=== PATIENT | female | born 1960 | race African-American/Black ===

== ENCOUNTER 2018-10-03 08:10 | Emergency (ER) | payer MEDICAID, OTHER ==
[~2018-10-03] VITALS: Ht 167.6 cm; Wt 73.9 kg
[~2018-10-03 08:10] MED LIST: BUSPIRONE HCL15 MG ORAL; GEODON40 MG ORAL; OMEPRAZOLE20 M2 ORAL
[2018-10-03 08:14] VITALS: BP 131/81
--- NOTE | 2018-10-03 08:14 | NUR ---
ED Nurse Note: Patient VILMA RA#[id number] from home d/t left hip pain x 1 day. Pt rates pain at 10/10. Pt reports Hx of Breast Cancer since 2017 and being a Hospice patient. Pt is A&O x4, V/S stable with no s/s of acute distress noted at this time.
--- NOTE | 2018-10-03 08:42 | Emergency Room Report ---
History of Present Illness General Chief Complaint: Pain Source: Patient, Medical Record Present Illness HPI Patient is a 58-year-old female brought in by EMS after increased left-sided hip pain. Patient reports having recent increase in pain to her left hip. She states she has been taking multiple medications for pain she had reported prior history of breast cancer. Patient is currently in a hospice. Patient reports that her hip had began hurting this morning. She denies prior episodes of pain to that area. She reportedly had been able to ambulate with a walker. Allergies: Coded Allergies: No Known Allergies (Unverified , 12/02/15) Patient History Past Medical History: see triage record Last Menstrual Period: None Now: No Reviewed Nursing Documentation: PMH: Agreed; PSxH: Agreed Nursing Documentation-PMH Hx Cardiac Problems: No - Breast cancer 2017 Hx Asthma: Yes Hx Cancer: Yes - BREAST CA History Of Psychiatric Problem: Yes - Anxiety Review of Systems All Other Systems: negative except mentioned in HPI Physical Exam Vital Signs Date Time Temp Pulse Resp B/P (MAP) Pulse Ox O2 Delivery O2 Flow Rate FiO2 10/03/18 08:03 98.2 86 18 97 10/03/18 08:14 131/81 Room Air Sp02 EP Interpretation: reviewed, normal General Appearance: normal inspection, well appearing, no apparent distress, alert, GCS 15, other - somnolent, awoke from sleeping Head: atraumatic ENT: normal ENT inspection, hearing grossly normal, normal voice Neck: normal inspection, full range of motion, supple, no bony tend Respiratory: normal inspection, lungs clear, normal breath sounds, no respiratory distress, no retraction, no wheezing Cardiovascular #1: regular rate, rhythm, no edema Gastrointestinal: normal inspection, normal bowel sounds, non tender, soft, no guarding, no hernia Genitourinary: no CVA tenderness Musculoskeletal: normal inspection, back normal, normal range of motion Neurologic: normal inspection, alert, oriented x3, responsive, vegetable packer III-XII nml as tested, speech normal Psychiatric: normal inspection, judgement/insight normal, mood/affect normal Skin: normal inspection, normal color, no rash Medical Decision Making Diagnostic Impression: Primary Impression: Hip pain Additional Impression: Metastatic cancer ER Course She presented for hip pain. Differential diagnosis include was not limited to metastases, fracture, dislocation, contusion among others. Because of complexity of patient's case laboratory testing and imaging studies were ordered.Patient was noted to be somewhat somnolent and appears to be possibly intoxicated. She was noted to be sleeping prior to exam but was easily arousable. Patient does not appear to be in any acute distress.CT of the left hip showed multiple lesions to the left iliac bone. Patient was given pain medications. She was noted to be in hospice.Patient was noted to have patient' s hospice was contacted and patient was sent back to her facility. Patient was noted to have metastatic cancer and has terminal illness. Last Vital Signs Date Time Temp Pulse Resp B/P (MAP) Pulse Ox O2 Delivery O2 Flow Rate FiO2 10/03/18 08:14 98.3 82 15 131/81 98 Room Air Status: improved Disposition: HOME, SELF-CARE Condition: Stable Jono Topete MD October 03, 2018 08:42
[2018-10-03] MEDS ORDERED: Morphine Sulfate 4mg/ml Inj (IV USE ONLY) IVP ONE (09:15)
--- NOTE | 2018-10-03 10:13 | NUR ---
ED Nurse Note: Pt. is sleeping with no s/s of acute distress noted at this time
[2018-10-03 11:49] VITALS: BP 126/68
[2018-10-03 12:42] VITALS: BP 126/68
--- NOTE | 2018-10-03 23:54 | Diagnostic Imaging Report ---
EXAM: CT Left Lower Extremity Without Intravenous Contrast, Hip. CLINICAL HISTORY: PAIN TECHNIQUE: Axial computed tomography images of the left hip without intravenous contrast. CTDI is 15.8 mGy and DLP is 435 mGy-cm. One or more of the following dose reduction techniques were used: automated exposure control, adjustment of the mA and/or kV according to patient size, use of iterative reconstruction technique. COMPARISON: No relevant prior studies available. FINDINGS: Bones: Multiple osteolytic lesions are seen throughout the pelvic bones, with partial cortical destruction of the left iliac bone. No evidence of pathologic fracture. Scattered osteoblastic lesions are seen as well, predominantly within the lower lumbar spine. Joints: No dislocation. Hip joints are symmetric. Soft tissues: Unremarkable. IMPRESSION: Osteolytic and osteoblastic lesions throughout the lower lumbar spine and both pelvic bones, with partial cortical destruction of the left iliac bone. Please correlate for history of malignancy. No evidence of pathologic fracture. No dislocation.
== END 2018-10-03 13:16 | disposition home or self-care (01) ==
LOC: EDBD 08:10 → EMR 10:35
DX: M25.552 Pain in left hip (principal); Z85.3 Personal history of malignant neoplasm of breast; F41.9 Anxiety disorder, unspecified
CPT/HCPCS: 73700; 96374; 99284; J2270

== ENCOUNTER 2018-11-02 22:10 | Emergency (ER) | payer OTHER ==
[~2018-11-02] VITALS: Ht 162.6 cm; Wt 77.1 kg
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
--- NOTE | 2018-11-02 23:48 | NUR ---
ED Nurse Note: Pt cleared by health care Provider for discharge. DC instructions/prescription was given and explained to pt and verbalized understanding of teachings. All medical deviecs such as ID band removed. Pt is AAO x4, ambulatory and left with all personal belongings.
== END 2018-11-02 23:49 | disposition home or self-care (01) ==
LOC: EDBD 22:10 → EMR 22:42
DX: M25.552 Pain in left hip (principal); F14.10 Cocaine abuse, uncomplicated; C79.81 Secondary malignant neoplasm of breast; Z90.13 Acquired absence of bilateral breasts and nipples
CPT/HCPCS: 96372; 99283; J1170

== ENCOUNTER 2018-11-09 01:28 | Emergency (ER) | payer OTHER ==
[~2018-11-09] VITALS: Ht 162.6 cm; Wt 77.1 kg
[2018-11-09] MEDS ORDERED: NKM (01:30)
[2018-11-09 01:35] VITALS: BP 153/68
--- NOTE | 2018-11-09 01:35 | NUR ---
ER Nurse Note: Pt VILMA from home c/o left hip pain, 8/10 pain. Pt stated she has hx of breast cancer and the pain is due to the cancer. Per EMS, pt was ambulatroy on scene but at bedside, pt was not able to get out of gurney. Pt stated "don't treat me any different because I am black". RN and staff explained to pt that pt care is not based on race, synagogue, sex, etc. Pt a&ox4, VSS, no signs of acute distress. All safety measrues met; will continue to montior.
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
[2018-11-09] MEDS ORDERED: HYDROcodone/Acetamin 5/325 tab ORAL ONE (02:00)
[2018-11-09 02:15] VITALS: BP 153/68
--- NOTE | 2018-11-09 02:15 | NUR ---
ER Nurse Note: All orders completed per ERMD orders. Pt seen, treated, medically cleared for discharge by ERMD. Discharge instructions and prescriptions given with repeat verbazliaion by pt. Instructed pt to follow up with primary care provider. Pt a&ox4, VSS, no signs of distress. ID band removed. Taxi [place]ohue for pt. Provided pt with water and food. Pt left with all belongings with wheelchair assistance via hospital provided taxi.
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
== END 2018-11-09 02:40 | disposition home or self-care (01) ==
LOC: EDBD 01:28 → EMR 01:41
DX: M25.552 Pain in left hip (principal); F14.10 Cocaine abuse, uncomplicated; C79.81 Secondary malignant neoplasm of breast; F17.200 Nicotine dependence, unspecified, uncomplicated
CPT/HCPCS: 99282

== ENCOUNTER 2019-01-01 02:43 | Emergency (ER) | payer OTHER ==
[~2019-01-01] VITALS: Ht 172.7 cm; Wt 79.4 kg
[~2019-01-01 02:43] MED LIST changes: +NKM
[2019-01-01 02:54] VITALS: BP 140/90
--- NOTE | 2019-01-01 02:55 | NUR ---
ER Nurse Note: Pt BIBA 826 from home c/o lower back pain. Pt stated 10/10 pain that started last night. Pt yelling, moaning, crying. Pt stated she takes norco for the pain but has not taken it. Pt a&ox4, VSS, stable. Will continue to montior.
[2019-01-01] MEDS ORDERED: HYDROmorphone 2mg tab ORAL ONE (03:30)
--- NOTE | 2019-01-01 03:32 | Emergency Room Report ---
History of Present Illness General Chief Complaint: Medication Refill Source: Patient Present Illness HPI HPI: This is a 58-year-old female with a history of metastatic breast cancer currently on palliative care presents for evaluation of left hip pain. The patient states she has had metastases to the iliac crest confirmed by previous CT scans. States that she ran out of her medication 2 days ago and is not able to get a refill from her hospice doctors until tomorrow. She requesting a dose of pain medication in the emergency department. She denies any new trauma or injury. Denies any other symptoms of acute illness such as fever, chills, chest pain, shortness of breath, nausea, vomiting. PMH: Metastatic cancer of the breast with metastases to iliac spine Allergies: Denies Social Hx: Denies smoking, alcohol use or drug use Allergies: Coded Allergies: No Known Allergies (Unverified , 12/02/15) Patient History Now: No Nursing Documentation-PMH Hx Asthma: Yes Hx Cancer: Yes - BREAST Review of Systems All Other Systems: negative except mentioned in HPI Physical Exam Vital Signs Date Time Temp Pulse Resp B/P (MAP) Pulse Ox O2 Delivery O2 Flow Rate FiO2 01/01/19 02:43 98.8 98 18 140/90 (107) 98 Room Air General: Awake and alert, moderate distress, crying on my entering the room HEENT: NC/AT. EOMI. Resp: Normal work of breathing. Abdomen: Abdomen is soft, nondistended. Nontender Skin: Intact. No abrasions, laceration or rash over the exposed skin MSK: Normal tone and bulk. Moving all extremities. No obvious deformity. Curled up in position. Able to extend the lower extremities without difficulty. Tenderness to palpation over the medial aspect of the left thigh and over the left hip. Neuro: Awake and alert. Mentating appropriately. Medical Decision Making Diagnostic Impression: Primary Impression: Hip pain Additional Impression: Metastatic breast cancer ER Course 58-year-old female history of metastatic breast cancer presents for evaluation of left hip pain. The patient has had several other emergency department visits with similar complaints. She is in hospice treatment for her metastatic breast cancer and states this is a typical presentation of her pain. As she denies any new injury or other complaints at this time I do not believe that lab work or imaging are indicated. We will attempt to treat the patient symptomatically and reevaluate after medication. Can expand work-up as needed. Reevaluation Time: 04:34 Last Vital Signs Date Time Temp Pulse Resp B/P (MAP) Pulse Ox O2 Delivery O2 Flow Rate FiO2 01/01/19 02:54 98.8 90 18 140/90 98 Room Air Status: improved Reevaluation Impression Patient notes significant improvement after receiving intramuscular Dilaudid. She is resting comfortably and even sleeping on my reevaluation. Her brother is now present states that she is appearing much improved compared to seeing her earlier and that he would like to take her home. They state that the pain medication will be at the pharmacy this morning. I discussed with them reasons to return to the emergency department; they understand and agree with this treatment plan will be discharged to follow-up with her outpatient therapist and paintings conservator. Please note that this report is being documented using [employer] technology. This can lead to erroneous entry secondary to incorrect interpretation by the dictating instrument. Disposition: HOME, SELF-CARE Condition: Improved Fortunato Ramirez MD Jan 01, 2019 03:32
[2019-01-01] MEDS ORDERED: HYDROmorphone 2 MG in NS 55 ML IVPB ONE (03:45)
[2019-01-01] MEDS ORDERED: Hydromorphone 0.5mg/0.5ml inj IM ONE (04:00)
[2019-01-01 04:40] VITALS: BP 140/90
--- NOTE | 2019-01-01 04:40 | NUR ---
ER Nurse Note: Pt seen, treated, medically cleared for discharge by ERMD. Discharge instuctions given with repeat verbalization by pt. Emphasized to follow up with primay care provider. All orders completed per ERMD orders. Pt a&ox4, VSS, no signs of distress. ID band removed. All questions answered per pt's questions. Pt left with all belongings, left with own transportation.
== END 2019-01-01 04:40 | disposition home or self-care (01) ==
LOC: EDBD 02:43 → EMR 03:06
DX: M25.552 Pain in left hip (principal); Z85.3 Personal history of malignant neoplasm of breast; Z85.89 Personal history of malignant neoplasm of other organs and systems
CPT/HCPCS: 96372; 96374; 99284; J1170

== ENCOUNTER 2019-01-17 08:21 | Emergency (ER) | payer OTHER ==
[~2019-01-17] VITALS: Ht 172.7 cm; Wt 72.6 kg
[2019-01-17 08:26] VITALS: BP 159/108
[2019-01-17] MEDS ORDERED: NORCO 10-325 T1 EACH ORAL (08:26)
[2019-01-17] MEDS ORDERED: MORPHINE IR15 MG ORAL (08:26)
[2019-01-17] MEDS ORDERED: Morphine Sulfate 2mg/ml Inj(IV/IM USE ONLY) IM ONE (08:45)
[2019-01-17] MEDS ORDERED: NORCO 5-325 TA1 EACH ORAL (08:55)
--- NOTE | 2019-01-17 08:56 | Emergency Room Report ---
History of Present Illness General Chief Complaint: Pain Source: Medical Record Present Illness HPI 58-year-old female history of metastatic cancer presents with left leg bone pain , started after she sat down, patient is able to ambulate she states she has a sharp ache inside her bones, no aggravating factors, alleviated with oral opioids, patient states she ran out she is getting hospice and palliative care, she denies any fevers chills chest pain shortness of breath, patient is requesting strong pain medications. Allergies: Coded Allergies: No Known Allergies (Unverified , 12/02/15) Patient History Past Medical History: see triage record Now: No Reviewed Nursing Documentation: PMH: Agreed; PSxH: Agreed Nursing Documentation-PMH Hx Asthma: Yes Hx Cancer: Yes - BREAST Review of Systems All Other Systems: negative except mentioned in HPI Physical Exam Vital Signs Date Time Temp Pulse Resp B/P (MAP) Pulse Ox O2 Delivery O2 Flow Rate FiO2 01/17/19 08:18 98.1 92 18 159/108 (125) 98 Room Air Sp02 EP Interpretation: reviewed, normal General Appearance: well appearing, no apparent distress, alert Head: normocephalic, atraumatic Eyes: bilateral eye PERRL, bilateral eye EOMI ENT: uvula midline, moist mucus membranes Neck: supple, thyroid normal, supple/symm/no masses Respiratory: lungs clear, no respiratory distress, no retraction, no accessory muscle use Cardiovascular #1: normal peripheral pulses, regular rate, rhythm, no edema, no gallop, no murmur Gastrointestinal: non tender, soft, no guarding, no rebound Musculoskeletal: normal inspection, other - Patient able to ambulate, left leg unremarkable, out of 5 strength hip flexion extension, abduction abduction, knee flexion extension intact Neurologic: alert, oriented x3 Psychiatric: mood/affect normal Skin: no rash, warm/dry Medical Decision Making Diagnostic Impression: Primary Impression: Cancer associated pain ER Course Patient with cancer related pain, opioids given, pain well under control will provide patient with a prescription disposition home with return precautions Last Vital Signs Date Time Temp Pulse Resp B/P (MAP) Pulse Ox O2 Delivery O2 Flow Rate FiO2 01/17/19 08:26 98.1 87 18 159/108 98 Room Air Disposition: HOME, SELF-CARE Condition: Stable Scripts Hydrocodone Bit/Acetaminophen 5-325* (NORCO 5-325*) 1 Each Tablet 1 TAB ORAL Q6H PRN for For Pain, #12 TAB 0 Refills Prov: Calin Estevez MD 01/17/19 Referrals: [facility] Koko Cabrera. [facility] Patient Instructions: Bone Metastasis, Chronic Pain Additional Instructions: The patient was provided with discharge instructions, notified to follow-up with a primary care doctor and or specialist in the next 24-48 hours, and to return to the ED if they have worsening of their symptoms. Please note that this report is being documented using [employer] technology. This can lead to erroneous entry secondary to incorrect interpretation by the dictating instrument. Calin Estevez MD Jan 17, 2019 08:56
[2019-01-17] MEDS ORDERED: oxyCODONE HCL/Acetaminophen 5/325mg ORAL ONE (09:00)
[2019-01-17 09:05] VITALS: BP 143/72
== END 2019-01-17 09:05 | disposition home or self-care (01) ==
LOC: EDBD 08:21 → EMR 09:01
DX: G89.3 Neoplasm related pain (acute) (chronic) (principal); M79.605 Pain in left leg; C79.51 Secondary malignant neoplasm of bone; Z85.3 Personal history of malignant neoplasm of breast; J45.909 Unspecified asthma, uncomplicated
CPT/HCPCS: 96372; 99283; J2270

== ENCOUNTER 2019-02-12 17:24 | Emergency (ER) | payer OTHER ==
[~2019-02-12] VITALS: Ht 172.7 cm; Wt 63.5 kg
[~2019-02-12 17:24] MED LIST changes: +MORPHINE IR15 MG ORAL; +NORCO 10-325 T1 EACH ORAL; +NORCO 5-325 TA1 EACH ORAL
--- NOTE | 2019-02-12 17:27 | NUR ---
ED Nurse Note: Pt was brought in by EMS RA [id number] from home due to left hip pain since today. Per EMS, pt was discharged from [facility] yesterday for the same symptom and pt states that she was not prescribed with a pain medication. AAO x4, follows commands with non labored breathing. No obvious deformity or hx of trauma.
[2019-02-12 17:30] VITALS: BP 136/78
--- NOTE | 2019-02-12 17:33 | Emergency Room Report ---
History of Present Illness General Chief Complaint: Pain Source: Patient, EMS Present Illness HPI Patient presents via EMS BLS. She apparently was discharged or left AMA this morning from [facility] after 1 to 2 weeks. She was with a neighbor and the neighbor called because she was complaining about increased pain in her left leg. She allegedly has metastatic breast cancer to that leg. They are discussing immune therapy however they decided for palliative care. She was discharged on MS Contin 100 mg and Dilaudid unknown milligrams. She states the pain is severe. She usually is able to ambulate with a walker. She denies any numbness in the leg. She feels intermittent chills and fever but this is not documented. She denies any nausea, vomiting, diarrhea or dysuria. She has a slight amount of right-sided chest pain that is more pleuritic but denies any hemoptysis or productive cough. She feels quite anxious and is afraid of dying. She takes Geodon at this time. She claims that she has been taking it. She does not feel suicidal or homicidal at this time. Patient was seen January 17 of this year and given a prescription for [place] and discharged to home. CT October 03 revealed these findings: IMPRESSION: Osteolytic and osteoblastic lesions throughout the lower lumbar spine and both pelvic bones, with partial cortical destruction of the left iliac bone. Please correlate for history of malignancy. Allergies: Coded Allergies: No Known Allergies (Unverified , 12/02/15) Patient History Past Medical History: see triage record, old chart reviewed Social History: Denies: smoking, alcohol use, drug use Social History Narrative Home Last Menstrual Period: N/A Now: No Reviewed Nursing Documentation: PMH: Agreed; PSxH: Agreed Nursing Documentation-PMH Hx Cardiac Problems: No - Cancer Breast Hx Asthma: Yes Hx Cancer: Yes - BREAST Review of Systems All Other Systems: negative except mentioned in HPI Physical Exam Vital Signs Date Time Temp Pulse Resp B/P (MAP) Pulse Ox O2 Delivery O2 Flow Rate FiO2 02/12/19 17:17 98.1 90 20 142/82 (102) 98 Room Air Sp02 EP Interpretation: reviewed, normal General Appearance: alert, non-toxic, mild distress Head: normocephalic, atraumatic Eyes: bilateral eye PERRL, bilateral eye conjunctivae pale ENT: moist mucus membranes Neck: full range of motion, supple Respiratory: lungs clear, normal breath sounds, other - Cath right Cardiovascular #1: regular rate, rhythm, no edema Cardiovascular #2: 2+ radial (R), 2+ dorsalis pedis (L) Gastrointestinal: normal inspection, normal bowel sounds, non tender, no mass, non-distended Genitourinary: no CVA tenderness Musculoskeletal: digits/nails normal, no calf tenderness, Esperanza's Sign negative , tender - L leg and pelvis Neurologic: alert, motor strength/tone normal, DTRs symmetric, sensory intact, cerebellar normal, speech normal, no Babinski Psychiatric: no suicidal/homicidal ideation, anxious Skin: no rash - slightly pale Medical Decision Making Diagnostic Impression: Primary Impression: Intractable leg pain Additional Impressions: Metastatic breast cancer Anxiety about ER Course Patient presents with left leg pain uncontrolled by palliative medication at home. Differential includes inadequate pain control, pathologic fracture, anxiety, electrolyte imbalance, occult infection amongst others. There is no evidence of DVT at this time. Evaluation with EKG, chest x-ray, pelvis x-ray and left femur x-ray. In addition labs will be obtained. The patient will give be given IV Dilaudid, Benadryl and Zofran. We will attempt to get records from [facility]. EKG no acute changes. CXR clips L. pelvis and femur with mets. Still with significant pain. Repeat Dilaudid and giving Reglan. Still with anxiety and refusing to lay on the gurney. Ativan given. Records from [facility] reviewed and noncontributory. Patient somewhat improved with treatment but needs better pain control. Discussed with Dr. España at [facility]. He accepts the patient in transfer. He states he knows the patient well. Repeat Dilaudid given as the patient is complaining about continued pain. Patient improved and stable for transfer. Laboratory Tests Test 02/12/19 19:10 02/12/19 19:35 White Blood Count 6.7 K/UL (4.8-10.8) Red Blood Count 3.67 M/UL (4.20-5.40) L Hemoglobin 9.6 G/DL (12.0-16.0) L Hematocrit 30.5 % (37.0-47.0) L Mean Corpuscular Volume 83 FL (80-99) Mean Corpuscular Hemoglobin 26.3 PG (27.0-31.0) L Mean Corpuscular Hemoglobin Concent 31.6 G/DL (32.0-36.0) L Red Cell Distribution Width 13.4 % (11.6-14.8) Platelet Count 280 K/UL (150-450) Mean Platelet Volume 5.0 FL (6.5-10.1) L Neutrophils (%) (Auto) 66.8 % (45.0-75.0) Lymphocytes (%) (Auto) 22.7 % (20.0-45.0) Monocytes (%) (Auto) 8.0 % (1.0-10.0) Eosinophils (%) (Auto) 1.8 % (0.0-3.0) Basophils (%) (Auto) 0.7 % (0.0-2.0) Prothrombin Time 10.0 SEC (9.30-11.50) Prothrombin Time INR 0.9 (0.9-1.1) PTT 21 SEC (23-33) L Sodium Level 143 MMOL/L (136-145) Potassium Level 4.6 MMOL/L (3.5-5.1) Chloride Level 107 MMOL/L (98-107) Carbon Dioxide Level 24 MMOL/L (21-32) Anion Gap 12 mmol/L (5-15) Blood Urea Nitrogen 16 mg/dL (7-18) Creatinine 0.8 MG/DL (0.55-1.30) Estimate Glomerular Filtration Rate > 60 mL/min (>60) Glucose Level 87 MG/DL (74-106) Calcium Level 9.3 MG/DL (8.5-10.1) Total Bilirubin 0.2 MG/DL (0.2-1.0) Aspartate Amino Transferase (AST) 38 U/L (15-37) H Alanine Aminotransferase (ALT) 22 U/L (12-78) Alkaline Phosphatase 247 U/L (46-116) H Total Creatine Kinase 116 U/L (26-308) Troponin I 0.000 ng/mL (0.000-0.056) Pro-B-Type Natriuretic Peptide 245 pg/mL (0-125) H Total Protein 7.2 G/DL (6.4-8.2) Albumin 3.4 G/DL (3.4-5.0) Globulin 3.8 g/dL Albumin/Globulin Ratio 0.9 (1.0-2.7) L Lipase 196 U/L (73-393) Urine Color Pale yellow Urine Appearance Clear Urine pH 8 (4.5-8.0) Urine Specific [place] 1.010 (1.005-1.035) Urine Protein Negative (NEGATIVE) Urine Glucose (UA) Negative (NEGATIVE) Urine Ketones Negative (NEGATIVE) Urine Blood Negative (NEGATIVE) Urine Nitrite Negative (NEGATIVE) Urine Bilirubin Negative (NEGATIVE) Urine Urobilinogen Normal MG/DL (0.0-1.0) Urine Leukocyte Esterase 1+ (NEGATIVE) H Urine RBC 0 /HPF (0 - 2) Urine WBC 0-2 /HPF (0 - 2) Urine Squamous Epithelial Cells Occasional /LPF Urine Bacteria Occasional /HPF (NONE) Urine Opiates Screen Negative (NEGATIVE) Urine Barbiturates Screen Negative (NEGATIVE) Phencyclidine (PCP) Screen Negative (NEGATIVE) Urine Amphetamines Screen Negative (NEGATIVE) Urine Benzodiazepines Screen Negative (NEGATIVE) Urine Cocaine Screen Negative (NEGATIVE) Urine Marijuana (THC) Screen Negative (NEGATIVE) EKG Diagnostic Results Rate: normal Rhythm: NSR ST Segments: no acute changes Rhythm Strip Diag. Results EP Interpretation: yes Rhythm: NSR, no PVC's, no ectopy Chest X-Ray Diagnostic Results Chest X-Ray Diagnostic Results : Chest X-Ray Ordered: Yes # of Views/Limited/Complete: 1 View Indication: Other EP Interpretation: Yes Interpretation: no effusion, no pneumothorax, other - inc wolff R Impression: Other Electronically Signed by: Electronically signed by Jeromy Johnson MD Other X-Ray Diagnostic Results Other X-Ray Diagnostic Results #1: X-Ray ordered: pelvis # of Views/Limited Vs Complete: 1 View Indication: Pain EP Interpretation: Yes Interpretation: no dislocation, no soft tissue swelling, no fractures, other - Metastatic and degenerative infiltrates Impression: Other Electronically Signed by: Electronically signed by Jeromy Johnson MD Other X-Ray Diagnostic Results #2: X-Ray ordered: Left femur # of Views/Limited Vs Complete: 4 View Indication: Pain EP Interpretation: Yes Interpretation: no dislocation, no soft tissue swelling, no fractures, other - Static infiltrate Impression: Other Electronically Signed by: Electronically signed by Jeromy Johnson MD Last Vital Signs Date Time Temp Pulse Resp B/P (MAP) Pulse Ox O2 Delivery O2 Flow Rate FiO2 02/12/19 23:56 98.2 86 18 118/82 100 02/12/19 22:31 Room Air Status: improved Disposition: XFER SHT-TRM HOSP Condition: Serious Jeromy Johnson MD Feb 12, 2019 17:33
[2019-02-12] MEDS ORDERED: HYDROmorphone 1mg/ml Carpuject IVP ONE ×4 (17:45→23:00)
[2019-02-12] MEDS ORDERED: DiphenhydrAMINE 50mg/ml Inj IVP ONE (17:45)
--- NOTE | 2019-02-12 17:58 | NUR ---
Consent form to release medical information faxed to [facility] after speaking with Kayla(nurse hydrochloric area supervisor at [facility]).
--- NOTE | 2019-02-12 18:05 | NUR ---
ED Nurse Note: RN able to access port-a-cath but unable to draw blood from it. Called lab for blood draw and spoke to Carlos.
--- NOTE | 2019-02-12 18:07 | NUR ---
ED Nurse Note: Noted pt to be yelling and cursing at ED staff due to pain. Pain medications already given. See EMAR.
[2019-02-12] MEDS ORDERED: Metoclopramide 10mg/2ml Inj IVP ONE (19:00)
--- NOTE | 2019-02-12 19:05 | NUR ---
ED Nurse Note: Got report from NICKI Waller. Patient is screaming, anxious, asking for food, pain meds. AAO x4, VSS at this time, skin is dry warm to touch. Blood was collected sent down.
[2019-02-12 19:20] VITALS: BP 138/87
--- NOTE | 2019-02-12 19:22 | NUR ---
HAND-OFF: Report given to Giuliana CACERES.
[2019-02-12 19:27] LABS: ANION GAP 12 mmol/L (5-15); BLOOD UREA NITROGEN 16 mg/dL (7-18); CALCIUM 9.3 MG/DL (8.5-10.1); CARBON DIOXIDE 24 MMOL/L (21-32); CHLORIDE 107 MMOL/L (98-107); CREATININE 0.8 MG/DL (0.55-1.30); INR 0.9 (0.9-1.1); POTASSIUM 4.6 MMOL/L (3.5-5.1); SODIUM 143 MMOL/L (136-145)
[2019-02-12 19:33] LABS: BASOPHILS % (AUTO) 0.7 % (0.0-2.0); EOSINOPHILS % (AUTO) 1.8 % (0.0-3.0); HEMATOCRIT 30.5 % (37.0-47.0); HEMOGLOBIN 9.6 G/DL (12.0-16.0); LYMPHOCYTES % (AUTO) 22.7 % (20.0-45.0); MEAN CORPUSCULAR VOLUME 83 FL (80-99); NEUTROPHILS % (AUTO) 66.8 % (45.0-75.0); PLATELET COUNT 280 K/UL (150-450); RED BLOOD COUNT 3.67 M/UL (4.20-5.40); RED CELL DISTRIBUTION WIDTH 13.4 % (11.6-14.8); WHITE BLOOD COUNT 6.7 K/UL (4.8-10.8)
--- NOTE | 2019-02-12 19:34 | Diagnostic Imaging Report ---
EXAM: XR Chest, 1 View CLINICAL HISTORY: PAIN TECHNIQUE: Frontal view of the chest. COMPARISON: 12 03 2015. FINDINGS: Lungs: Right lower lung mild irregular densities which may be chronic, artifact, versus infiltrates. Pleural space: Unremarkable. No pneumothorax. Heart: Unremarkable. No cardiomegaly. Mediastinum: Unremarkable. Bones joints: Unremarkable. Tubes, lines and devices: Right chest Port-A-Cath. IMPRESSION: Right lower lung mild irregular densities which may be chronic, artifact, versus infiltrates.
[2019-02-12 19:37] LABS: ALANINE AMINOTRANSFERASE 22 U/L (12-78); ALBUMIN 3.4 G/DL (3.4-5.0); ALBUMIN/GLOBULIN RATIO 0.9 (1.0-2.7); ALKALINE PHOSPHATASE 247 U/L (46-116); ASPARTATE AMINO TRANSFERASE 38 U/L (15-37); BILIRUBIN,TOTAL 0.2 MG/DL (0.2-1.0); CREATINE KINASE 116 U/L (26-308)
--- NOTE | 2019-02-12 19:42 | NUR ---
ED Nurse Note: [place] and ice cream were provided.
[2019-02-12 19:56] LABS: APPEARANCE,URINE CLEAR; BILIRUBIN, URINE NEGATIVE (NEGATIVE); COLOR,URINE PALE YELLOW; GLUCOSE, URINE (UA) NEGATIVE (NEGATIVE); KETONES,URINE NEGATIVE (NEGATIVE); LEUKOCYTE ESTERASE ,URINE 1+ (NEGATIVE); NITRITE,URINE NEGATIVE (NEGATIVE); PH,URINE 8 (4.5-8.0); PROTEIN,URINE NEGATIVE (NEGATIVE); UROBILINOGEN,URINE NORMAL MG/DL (0.0-1.0)
[2019-02-12] MEDS ORDERED: Ketorolac 30mg Inj IV ONE (20:15)
--- NOTE | 2019-02-12 20:32 | Diagnostic Imaging Report ---
EXAM: XR Left Femur, 2 Views CLINICAL HISTORY: PAIN TECHNIQUE: Frontal and lateral views of the left femur. COMPARISON: No relevant prior studies available. FINDINGS: Bones joints: No acute displaced fracture or dislocation. Small lucencies in the left [id number] femur which may be metastasis versus artifact. Soft tissues: Unremarkable. IMPRESSION: 1. No acute displaced fracture or dislocation. 2. Small lucencies in the left [id number] femur which may be metastasis versus artifact.
--- NOTE | 2019-02-12 20:34 | Diagnostic Imaging Report ---
EXAM: XR Pelvis, 1 or 2 Views CLINICAL HISTORY: PAIN TECHNIQUE: Frontal view of the pelvis. COMPARISON: No relevant prior studies available. FINDINGS: Bones joints: Scattered osseous lucencies most significant in the left pelvis, concerning for metastasis. No acute displaced fracture or dislocation. Soft tissues: Unremarkable. IMPRESSION: 1. Scattered osseous lucencies most significant in the left pelvis, concerning for metastasis. 2. No acute displaced fracture or dislocation.
[2019-02-12] MEDS ORDERED: LORazepam Inj 2mg/ml 1ml IV ONE ×2 (21:00→22:15)
[2019-02-12 22:31] VITALS: BP 125/76
[2019-02-12 23:56] VITALS: BP 118/82
--- NOTE | 2019-02-13 01:05 | NUR ---
ED Nurse Note: Patient was transfered to the [facility]. AAO x4, VSS at this time, skin is intact warm to touch, deny pain right now. Patient was transfered via [id number], with all belongings.
--- NOTE | 2019-02-14 11:16 | Cardiology Report ---
APPROVED REPORT EKG Measurement Heart [id number] Normal sinus rhythm Septal infarct, age undetermined Abnormal ECG
== END 2019-02-12 23:56 | disposition short-term general hospital (02) ==
LOC: EDBD 17:24 → EMR 18:25
DX: C50.919 Malignant neoplasm of unspecified site of unspecified female breast (principal); C79.51 Secondary malignant neoplasm of bone; M79.605 Pain in left leg; J45.909 Unspecified asthma, uncomplicated
CPT/HCPCS: 36415; 71045; 72170; 73552; 80053; 80307; 81003; 82550; 83690; 83880; 84484; 85025; 85610; 85730; 87081; 93005; 96361; 96374; 96376; 99285; J1170; J1200; J1885; J2765

== ENCOUNTER 2019-03-04 06:10 | Emergency (ER) | payer OTHER ==
[~2019-03-04] VITALS: Ht 167.6 cm; Wt 81.6 kg
--- NOTE | 2019-03-04 06:15 | NUR ---
ED Nurse Note: BROUGHT IN BY [facility] RA [id number] FROM HOME C/O GENERALIZED PAIN X 3 WEEKS. AO4. SOBBING UNCONTROLLABLY.
[2019-03-04 06:17] VITALS: BP 144/91
--- NOTE | 2019-03-04 06:26 | Emergency Room Report ---
History of Present Illness General Chief Complaint: Pain Source: Patient Present Illness HPI 58-year-old female history of metastatic breast cancer supposed to be on palliative care presents with generalized body pain she states she recently ran out of her oxycodone, she is been having difficulty arranging palliative care as well as hospice care she did not find a chronic pain doctor. She states the pain is described as a deep ache severe, no aggravating factors alleviated by Dilaudid, severity is severe. No fevers chills chest pain shortness of breath. Patient presents via EMS from home. She states at 11 AM she has an appointment with palliative. Review of cures report shows that she received a prescription Allergies: Coded Allergies: No Known Allergies (Unverified , 12/02/15) Patient History Past Medical History: see triage record Reviewed Nursing Documentation: PMH: Agreed; PSxH: Agreed Nursing Documentation-PMH Past Medical History: No History, Except For Hx Cardiac Problems: No - Cancer Breast Hx Asthma: Yes Hx Cancer: Yes - BREAST Review of Systems All Other Systems: negative except mentioned in HPI Physical Exam Vital Signs Date Time Temp Pulse Resp B/P (MAP) Pulse Ox O2 Delivery O2 Flow Rate FiO2 03/04/19 06:12 98.6 106 14 144/91 (108) 99 Room Air General Appearance: well appearing, no apparent distress Head: normocephalic, atraumatic ENT: hearing grossly normal, normal voice Neck: full range of motion, supple Respiratory: no respiratory distress, speaking full sentences Cardiovascular #1: no edema, no gallop, tachycardia Neurologic: alert, normal gait Psychiatric: anxious Skin: no rash Medical Decision Making Diagnostic Impression: Primary Impression: Pain Additional Impression: Metastatic breast cancer ER Course 58-year-old female presents with chronic pain, patient recently ran out of her oxycodone. Counseled patient that she needs to follow-up with her primary care doctor as well as her pain doctor, will symptomatically control her pain here. Pain was well controlled, will provide patient with a short-term prescription of pain medications counseled patient that she needs to follow-up with her primary care doctor and obtain palliative care Last Vital Signs Date Time Temp Pulse Resp B/P (MAP) Pulse Ox O2 Delivery O2 Flow Rate FiO2 03/04/19 06:12 98.6 106 14 144/91 (108) 99 Room Air Disposition: HOME, SELF-CARE Condition: Stable Scripts Oxycodone/Acetaminophen 5-325* (PERCOCET 5-325 MG TABLET*) 1 Each Tablet 1 TAB ORAL Q6H PRN for For Pain, #12 TAB 0 Refills Prov: Calin Estevez MD 03/04/19 Referrals: [facility] Patient Instructions: Chronic Pain Additional Instructions: The patient was provided with discharge instructions, notified to follow-up with a primary care doctor and or specialist in the next 24-48 hours, and to return to the ED if they have worsening of their symptoms. Please note that this report is being documented using DRAGON technology. This can lead to erroneous entry secondary to incorrect interpretation by the dictating instrument. Calin Estevez MD Mar 04, 2019 06:26
[2019-03-04] MEDS ORDERED: DiphenhydrAMINE 50mg/ml Inj IM ONE (06:30)
[2019-03-04] MEDS ORDERED: Hydromorphone 0.5mg/0.5ml inj IM ONE ×2 (06:30)
[2019-03-04] MEDS ORDERED: Haloperidol 5mg/ml Inj IM ONE (06:30)
[2019-03-04] MEDS ORDERED: PERCOCET 5-3251 EACH ORAL (06:30)
--- NOTE | 2019-03-04 06:38 | NUR ---
ED Nurse Note: MEDICATED PATIENT; TOLERATED WELL. PT STATES SHE WANTS TO GO HOME AFTER MEDICATION. TAMANNA CLEARED PT FOR DISCHARGE. OFFERED AND PROVIDED TAXI VOUCHER. PT DISCHARGED. AWAITING TAXI.
[2019-03-04 06:41] VITALS: BP 144/91
--- NOTE | 2019-03-04 07:14 | NUR ---
ER DISCHARGE NOTE: Patient is cleared to be discharged per ERMD, pt is aox4, on room air, with stable vital signs. pt was given dc and prescription instructions, pt was able to verbalize understanding, pt id band removed. pt is able to ambulate with walker to waiting room. pt took all belongings. patient waiting for taxi.
== END 2019-03-04 07:16 | disposition home or self-care (01) ==
LOC: EDBD 06:10 → EMR 06:27
DX: C50.919 Malignant neoplasm of unspecified site of unspecified female breast (principal); C79.9 Secondary malignant neoplasm of unspecified site; G89.29 Other chronic pain; R52 Pain, unspecified; J45.909 Unspecified asthma, uncomplicated
CPT/HCPCS: 96372; 99283; J1170

== ENCOUNTER 2019-03-04 09:34 | Inpatient (IN) | payer OTHER ==
[~2019-03-04] VITALS: Ht 162.6 cm; Wt 77.6 kg
[~2019-03-04 09:34] MED LIST changes: +PERCOCET 5-3251 EACH ORAL
--- NOTE | 2019-03-04 09:34 | NUR ---
ED Nurse Note: Mercedes Hearn at bedside. Patient is yelling at staff in loud voice and requesting pain medication. RN attempted to calm her down, but patient remained agitated. Increased observation.
--- NOTE | 2019-03-04 09:40 | NUR ---
ED Nurse Note: Belonging list completed by NICKI Arias and placed patient's belongings in locker #2. Patient in hospital gown. Patient's walker at bedside.
--- NOTE | 2019-03-04 09:59 | NUR ---
ED Nurse Note: pt is aa0x3, vss and pt is combative. Pt called [employer] and stated that she is suicidal but no specific plans at this time. Pt was arguing with ED staff and yelling in ER waiting room.
[2019-03-04 10:00] VITALS: BP 157/98
[2019-03-04] MEDS ORDERED: Haloperidol 5mg/ml Inj IM ONE (10:00)
[2019-03-04] MEDS ORDERED: LORazepam Inj 2mg/ml 1ml IM ONE (10:00)
[2019-03-04] MEDS ORDERED: DiphenhydrAMINE 50mg/ml Inj IM ONE (10:00)
--- NOTE | 2019-03-04 10:00 | NUR ---
ED Nurse Note: pt is agitated and resistant to care.
--- NOTE | 2019-03-04 10:02 | Emergency Room Report ---
History of Present Illness General Chief Complaint: Behavioral Complaint Source: Patient, Medical Record Present Illness HPI 58-year-old female history of metastatic cancer, history of drug-seeking behavior history of noncompliance, presents with generalized pain in her bones, patient is requesting drugs were she will state that she is suicidal, patient was recently discharged however came back after police found her stating that she wants to kill herself she is currently on a 5150. Patient is uncooperative and yelling for pain medication. Allergies: Coded Allergies: No Known Allergies (Unverified , 12/02/15) Patient History Limited by: medical condition - Uncooperative Social History: Reports: drug use Reviewed Nursing Documentation: PMH: Agreed; PSxH: Agreed Nursing Documentation-PMH Hx Cardiac Problems: No - Cancer Breast Hx Asthma: Yes Hx Cancer: Yes - BREAST Review of Systems All Other Systems: limited - Uncooperative Physical Exam Vital Signs Date Time Temp Pulse Resp B/P (MAP) Pulse Ox O2 Delivery O2 Flow Rate FiO2 03/04/19 09:43 97.5 60 16 157/98 (117) 95 Room Air Sp02 EP Interpretation: reviewed, normal General Appearance: well appearing, no apparent distress, alert Head: normocephalic, atraumatic Eyes: bilateral eye PERRL, bilateral eye EOMI ENT: uvula midline, moist mucus membranes Neck: supple, thyroid normal, supple/symm/no masses Respiratory: lungs clear, no respiratory distress, no retraction, no accessory muscle use Cardiovascular #1: normal peripheral pulses, regular rate, rhythm, no edema, no gallop, no murmur Gastrointestinal: non tender, soft, no guarding, no rebound Musculoskeletal: normal inspection Neurologic: alert, oriented x3 Psychiatric: anxious Skin: no rash, warm/dry Medical Decision Making Diagnostic Impression: Primary Impression: Behavioral disorder Additional Impression: Suicidal ideations ER Course 58-year-old female history of opioid abuse history of metastatic cancer presents with acute suicidal ideations, patient is currently on a 5150 She has a plan to swallow pills to kill herself Patient is medically cleared Laboratory Tests Test 03/04/19 10:19 03/04/19 11:02 03/04/19 11:15 Sodium Level 138 MMOL/L (136-145) Potassium Level 4.2 MMOL/L (3.5-5.1) Chloride Level 102 MMOL/L (98-107) Carbon Dioxide Level 27 MMOL/L (21-32) Anion Gap 9 mmol/L (5-15) Blood Urea Nitrogen 12 mg/dL (7-18) Creatinine 0.9 MG/DL (0.55-1.30) Estimate Glomerular Filtration Rate > 60 mL/min (>60) Glucose Level 98 MG/DL (74-106) Calcium Level 10.9 MG/DL (8.5-10.1) H Total Bilirubin 0.3 MG/DL (0.2-1.0) Aspartate Amino Transferase (AST) 97 U/L (15-37) H Alanine Aminotransferase (ALT) 27 U/L (12-78) Alkaline Phosphatase 247 U/L (46-116) H Total Protein 8.0 G/DL (6.4-8.2) Albumin 3.5 G/DL (3.4-5.0) Globulin 4.5 g/dL Albumin/Globulin Ratio 0.8 (1.0-2.7) L Salicylates Level 1.5 ug/mL (2.8-20) L Acetaminophen Level < 2 MCG/ML (10-30) L Serum Alcohol < 3 mg/dL Urine Color Pale yellow Urine Appearance Clear Urine pH 7 (4.5-8.0) Urine Specific [place] 1.010 (1.005-1.035) Urine Protein Negative (NEGATIVE) Urine Glucose (UA) Negative (NEGATIVE) Urine Ketones Negative (NEGATIVE) Urine Blood Negative (NEGATIVE) Urine Nitrite Negative (NEGATIVE) Urine Bilirubin Negative (NEGATIVE) Urine Urobilinogen Normal MG/DL (0.0-1.0) Urine Leukocyte Esterase 1+ (NEGATIVE) H Urine RBC 0-2 /HPF (0 - 2) Urine WBC 0-2 /HPF (0 - 2) Urine Squamous Epithelial Cells Occasional /LPF Urine Bacteria Occasional /HPF (NONE) Urine Opiates Screen Positive (NEGATIVE) H Urine Barbiturates Screen Negative (NEGATIVE) Phencyclidine (PCP) Screen Negative (NEGATIVE) Urine Amphetamines Screen Negative (NEGATIVE) Urine Benzodiazepines Screen Negative (NEGATIVE) Urine Cocaine Screen Negative (NEGATIVE) Urine Marijuana (THC) Screen Negative (NEGATIVE) White Blood Count 7.9 K/UL (4.8-10.8) Red Blood Count 3.78 M/UL (4.20-5.40) L Hemoglobin 9.7 G/DL (12.0-16.0) L Hematocrit 30.9 % (37.0-47.0) L Mean Corpuscular Volume 82 FL (80-99) Mean Corpuscular Hemoglobin 25.6 PG (27.0-31.0) L Mean Corpuscular Hemoglobin Concent 31.3 G/DL (32.0-36.0) L Red Cell Distribution Width 13.4 % (11.6-14.8) Platelet Count 326 K/UL (150-450) Mean Platelet Volume 5.0 FL (6.5-10.1) L Neutrophils (%) (Auto) 65.1 % (45.0-75.0) Lymphocytes (%) (Auto) 18.3 % (20.0-45.0) L Monocytes (%) (Auto) 12.7 % (1.0-10.0) H Eosinophils (%) (Auto) 0.6 % (0.0-3.0) Basophils (%) (Auto) 3.3 % (0.0-2.0) H Last Vital Signs Date Time Temp Pulse Resp B/P (MAP) Pulse Ox O2 Delivery O2 Flow Rate FiO2 03/04/19 09:43 97.5 60 16 157/98 (117) 95 Room Air Disposition: XFER TO PSYCH HOSP/UNIT Condition: Stable [facility] Patient Instructions: Self-Destructive Behavior Additional Instructions: The patient was provided with discharge instructions, notified to follow-up with a primary care doctor and or specialist in the next 24-48 hours, and to return to the ED if they have worsening of their symptoms. Please note that this report is being documented using Hydrobee technology. This can lead to erroneous entry secondary to incorrect interpretation by the dictating instrument. Calin Estevez MD Mar 04, 2019 10:02
[2019-03-04 10:47] LABS: ANION GAP 9 mmol/L (5-15); BLOOD UREA NITROGEN 12 mg/dL (7-18); CALCIUM 10.9 MG/DL (8.5-10.1); CARBON DIOXIDE 27 MMOL/L (21-32); CHLORIDE 102 MMOL/L (98-107); CREATININE 0.9 MG/DL (0.55-1.30); POTASSIUM 4.2 MMOL/L (3.5-5.1); SODIUM 138 MMOL/L (136-145)
[2019-03-04 10:51] LABS: ALANINE AMINOTRANSFERASE 27 U/L (12-78); ALBUMIN 3.5 G/DL (3.4-5.0); ALBUMIN/GLOBULIN RATIO 0.8 (1.0-2.7); ALKALINE PHOSPHATASE 247 U/L (46-116); ASPARTATE AMINO TRANSFERASE 97 U/L (15-37); BILIRUBIN,TOTAL 0.3 MG/DL (0.2-1.0)
--- NOTE | 2019-03-04 11:07 | NUR ---
ED Nurse Note: pt is resting well.
[2019-03-04 11:31] LABS: BASOPHILS % (AUTO) 3.3 % (0.0-2.0); EOSINOPHILS % (AUTO) 0.6 % (0.0-3.0); HEMATOCRIT 30.9 % (37.0-47.0); HEMOGLOBIN 9.7 G/DL (12.0-16.0); LYMPHOCYTES % (AUTO) 18.3 % (20.0-45.0); MEAN CORPUSCULAR VOLUME 82 FL (80-99); MONOCYTES % (AUTO) 12.7 % (1.0-10.0); NEUTROPHILS % (AUTO) 65.1 % (45.0-75.0); PLATELET COUNT 326 K/UL (150-450); RED BLOOD COUNT 3.78 M/UL (4.20-5.40); RED CELL DISTRIBUTION WIDTH 13.4 % (11.6-14.8); WHITE BLOOD COUNT 7.9 K/UL (4.8-10.8)
[2019-03-04 11:37] LABS: APPEARANCE,URINE CLEAR; BILIRUBIN, URINE NEGATIVE (NEGATIVE); COLOR,URINE PALE YELLOW; GLUCOSE, URINE (UA) NEGATIVE (NEGATIVE); KETONES,URINE NEGATIVE (NEGATIVE); LEUKOCYTE ESTERASE ,URINE 1+ (NEGATIVE); NITRITE,URINE NEGATIVE (NEGATIVE); PH,URINE 7 (4.5-8.0); PROTEIN,URINE NEGATIVE (NEGATIVE); UROBILINOGEN,URINE NORMAL MG/DL (0.0-1.0)
--- NOTE | 2019-03-04 15:04 | NUR ---
ED Nurse Note: pt is resting well. pt is talking to sitter.
[2019-03-04] MEDS ORDERED: HYDROcodone/Acetamin 10/325 tab ORAL ONE (17:15)
--- NOTE | 2019-03-04 18:24 | NUR ---
ED Nurse Note: In the process of placing pt. Facilites have been faxed and waiting for reply.
[2019-03-04 20:00] VITALS: BP 143/95
--- NOTE | 2019-03-04 20:00 | NUR ---
ED Nurse Note: RECEIVED REPORT FROM NICKI BARBER. PT IS CURRENTLY ASLEEP AT THIS TIME. PT LOOKS COMFORTABLE. ADDITIONAL BLANKETS PROVIDED, BED IS AT LOWEST POSITION X 2 SIDERAILS WITH 1:1 SITTER
[2019-03-04 22:00] VITALS: BP 134/84
--- NOTE | 2019-03-04 22:00 | NUR ---
ED Nurse Note: Received report from Conchita CACERES. Patient currently resting quietly with sitter at bedside. Will continue to monitor.
--- NOTE | 2019-03-04 23:08 | NUR ---
ED Nurse Note: Patient expressed pain level of 10/10 for bilateral legs, ERMD informed, order carried out. will continue to monitor.
[2019-03-04] MEDS ORDERED: HYDROcodone/Acetamin 7.5/325 tab ORAL ONE (23:15)
[2019-03-04] MEDS ORDERED: Ziprasidone 20mg cap ORAL ONE (23:30)
[2019-03-04] MEDS ORDERED: Benztropine 1mg tab ORAL ONE (23:30)
[2019-03-04] MEDS ORDERED: Docusate Sod/Senna tab ORAL ONE (23:30)
--- NOTE | 2019-03-04 23:45 | NUR ---
ED Nurse Note: Patient transported to restroom via wheel chair. Able to complete ADL alone in restroom. Will continue to monitor.
[2019-03-05] VITALS (7 sets, daily range): BP systolic 139–154; BP diastolic 72–97
--- NOTE | 2019-03-05 00:09 | NUR ---
ED Nurse Note: Patient request medication to help her sleep, ERMD informed, orders carried out. Will continue to monitor.
[2019-03-05] MEDS ORDERED: Bisacodyl EC 5mg tab ORAL ONE (00:43)
[2019-03-05] MEDS ORDERED: LORazepam 1mg tab ORAL ONE (01:00)
[2019-03-05] MEDS ORDERED: Bisacodyl EC 5mg tab ORAL PRN ×2 (01:00→16:45)
--- NOTE | 2019-03-05 01:37 | NUR ---
ED Nurse Note: Patient currently resting quietlyy, new sitter at bedside. Will continue to monitor.
--- NOTE | 2019-03-05 02:43 | NUR ---
ED Nurse Note: Patient is resting comfortably, no s/s of acute distress. Patient has no complaints at this time.
--- NOTE | 2019-03-05 03:43 | NUR ---
ED Nurse Note: Patient sleeping soundly with no s/s of acute distress, Sitter remains at bedside.
--- NOTE | 2019-03-05 04:45 | NUR ---
ED Nurse Note: Patient resting quietly, no s/s of acute distress. sitter remains at bedside, will continue to monitor.
--- NOTE | 2019-03-05 05:50 | NUR ---
ED Nurse Note: patient request another dose for her pain, will consult ERMD.
[2019-03-05] MEDS ORDERED: HYDROcodone/Acetamin 7.5/325 tab ORAL ONE (06:00)
--- NOTE | 2019-03-05 06:51 | NUR ---
ED Nurse Note: Patient tolerated medication administration well, has no complaints at this time and is attempting to go back to sleep. Sitter at bedside, will continue to monitor.
--- NOTE | 2019-03-05 07:08 | NUR ---
ED Nurse Note: Patient currently sleeping sitter at bedside. Handoff from night RN.
--- NOTE | 2019-03-05 07:30 | NUR ---
ED Nurse Note: Patient has a change of sitter. Noisie now at bedside. Sitter log has been provided. Informed Noisie that patient has been using wheelchair to transport to the bathroom. Saftey checklist completed. Patient currently sleeping. Easily rousable and cooperative with initial assessment and answered questions pertinent to assessment. Manner is calm.
--- NOTE | 2019-03-05 07:31 | NUR ---
ED Nurse Note: Patient woken for recheck of vital sighns and initial assesment. Patient denies thoughts of harm to self or others at this time. Vital signs and assessment checked.
--- NOTE | 2019-03-05 09:10 | NUR ---
ED Nurse Note: Patient reports pain score of 6 to legs - states "thats where the pain always is" Patient has eaten breakfast provided. Denies thoughts of harm to self or others. Patient reports she doesnt feel like hurting herself as right now she has no pain. I asked 'you have zero pain right now?" Patient states yes I have no pain - states 'its only when the pain copmes that I feel like hurting myself. Patient denies being homeless states she lives in a flat that she has just dcorated. Askerd patient if she has family support patient stated 'not really.' I adked patient if she has friends - she states she has a friend whom helps her out.
--- NOTE | 2019-03-05 09:16 | NUR ---
ED Nurse Note: Patient transferred to and from bathroom with sitter to urinate.
[2019-03-05] MEDS ORDERED: LORazepam 0.5mg tab ORAL ONE (09:45)
--- NOTE | 2019-03-05 10:06 | NUR ---
ED Nurse Note: Medication given as prescribed. Patient currently sleeping.
--- NOTE | 2019-03-05 12:15 | NUR ---
ED Nurse Note: Patient complaining of pain in the left leg - Doctor informed.
--- NOTE | 2019-03-05 15:14 | NUR ---
ED Nurse Note: Patient currently sleeping
[2019-03-05] MEDS ORDERED: Ziprasidone 20mg cap ORAL SCH ×2 (16:45→17:30)
[2019-03-05] MEDS: HYDROcodone/Acetamin 5/325 tab ORAL PRN ×2 (16:50→22:55)
--- NOTE | 2019-03-05 19:02 | NUR ---
ED Nurse Note: Handoff to night nurse
--- NOTE | 2019-03-05 19:10 | NUR ---
ED Nurse Note: Received report from NICKI Barry. Patient is in the room, resting. AAO x4, VSS at this time.
--- NOTE | 2019-03-05 19:11 | NUR ---
ED Nurse Note: siter by bed side
[2019-03-05] MEDS: LORazepam 1mg tab ORAL PRN (19:32)
[2019-03-05] MEDS ORDERED: Guaifenesin/DM 10ml syrup ORAL PRN (21:15)
[2019-03-06] VITALS (7 sets, daily range): BP systolic 119–161; BP diastolic 76–98
--- NOTE | 2019-03-06 04:00 | NUR ---
ED Nurse Note: received endorsement from arlette carlson. pt is in bed resting, shows no acutes signs of distress. vss. sitter at bedside.
--- NOTE | 2019-03-06 05:00 | NUR ---
ED Nurse Note: pt was wheeled and assisted to use restroom.
[2019-03-06] MEDS: LORazepam 1mg tab ORAL PRN (05:14)
--- NOTE | 2019-03-06 05:15 | NUR ---
ED Nurse Note: pt consistently shouting loudly. pt appears anxious and consistently asks sitters to walk outside of room.
--- NOTE | 2019-03-06 05:16 | NUR ---
ED Nurse Note: pt was given prn ativan as ordered. pt tolerated well. will continue to monitor.
--- NOTE | 2019-03-06 05:25 | NUR ---
ED Nurse Note: pt accompanied to restroom with sitter.
--- NOTE | 2019-03-06 05:29 | NUR ---
ED Nurse Note: pt states that she is still experiencing pain. Will provide pain medications as ordered per ermd
[2019-03-06] MEDS: HYDROcodone/Acetamin 5/325 tab ORAL PRN (05:36)
--- NOTE | 2019-03-06 05:37 | NUR ---
ED Nurse Note: pt given norco as ordered. pt tolerated medication well.
--- NOTE | 2019-03-06 06:02 | NUR ---
ED Nurse Note: pt in room asleep, lights have been dimmed to increase pt comfortm. sitter at bedside
--- NOTE | 2019-03-06 07:10 | NUR ---
ED Nurse Note: Patient laying in bed at this time. Attempted to assess and take vitals. Patient woke up and refused. Patient stated that she does not want to be waken up while shes sleep. Asked patient if how shes feeling right now and any thoughts of hurting herself. Patient stated shes okay and no feelings of intentions of harming herself or others. Sitter at bedside.
--- NOTE | 2019-03-06 07:50 | NUR ---
ED Nurse Note: Patient awake, vitals taken. Patient verbalized shes okay and no suicidal feelings or thoughts at this time. Denies pain at this time. Sitter at bediside.
--- NOTE | 2019-03-06 08:18 | NUR ---
ED Nurse Note: Patient asked the nurse to call [facility] hospice to inform them that patient in the hospital. Spoke to Larry, hospice nurse and made her aware that patient was under observation in ER. Patient requested to transfer the call to her. Patient speaking to the hospice nurse and informing her that shes in the hospital. Sitter at bedside.
--- NOTE | 2019-03-06 08:46 | NUR ---
ED Nurse Note: Provided warm compress. Having conversation with the sitter. Shes stated shes feeling better. Denies pain at this time
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
--- NOTE | 2019-03-06 10:40 | NUR ---
ED Nurse Note: Report given to Reza.
[2019-03-06] MEDS ORDERED: HYDROcodone/Acetamin 5/325 tab ORAL PRN (11:15)
[2019-03-06] MEDS ORDERED: oxyCODONE HCL/Acetaminophen 5/325mg ORAL PRN ×2 (11:15→12:00)
--- NOTE | 2019-03-06 11:16 | NUR ---
NURSE NOTES: Patient arrived on unit via wheelchair. Sitter is at bedside. Stable. Denies pain or SOB at this time. Patient is in good spirits. Dr. gallardo paged for admission orders. Awaiting code status order. Dr. Gallardo told RN that he will make rounds to see patient shortly. No IV access from ER. Patient is oriented to room, call light, and unit. Patient encouraged to use call light for assistance, verbalized understanding. Patient assisted to bed in locked and lowest position with call light within reach. WIll continue to monitor.
[2019-03-06] MEDS ORDERED: MS Contin 15mg tab ORAL SCH ×2 (12:00→12:30)
[2019-03-06] MEDS ORDERED: MS Contin 15mg tab ORAL PRN (12:00)
[2019-03-06] MEDS: HYDROcodone/Acetamin 10/325 tab ORAL PRN ×2 (12:01→18:08)
[2019-03-06] MEDS ORDERED: Zolpidem 5mg tab ORAL PRN (12:30)
[2019-03-06] MEDS: MS Contin 100mg tab ORAL SCH ×2 (12:49→20:33)
[2019-03-06] MEDS ORDERED: DOCUSATE SODIU250 MG ORAL (14:05)
[2019-03-06] MEDS ORDERED: MS CONTIN100 MG ORAL (14:05)
[2019-03-06] MEDS ORDERED: HYDROCODON-ACE1 EA13 ORAL (14:05)
[2019-03-06] MEDS ORDERED: SENNA8.6 M2 PO (14:05)
[2019-03-06] MEDS ORDERED: OXYCODONE HCL30 MG ORAL (14:05)
[2019-03-06] MEDS ORDERED: ZIPRASIDONE HCL60 MG ORAL (14:09)
[2019-03-06] MEDS ORDERED: ANASTROZOLE1 MG PO (14:09)
[2019-03-06] MEDS ORDERED: BENZTROPINE ME0.5 MG PO (14:09)
[2019-03-06] MEDS ORDERED: LORAZEPAM0.5 MG ORAL (14:22)
[2019-03-06] MEDS ORDERED: LIDODERM700 M1 TOPIC (14:22)
[2019-03-06] MEDS ORDERED: PANTOPRAZOLE SO40 MG ORAL (14:25)
[2019-03-06] MEDS ORDERED: HYDROMORPHONE HC2 M1 ORAL (14:26)
[2019-03-06] MEDS ORDERED: GUAIFENESIN-CO118 M1 ORAL (14:29)
[2019-03-06] MEDS ORDERED: PERCOCET 5-3251 EACH ORAL (14:29)
[2019-03-06] MEDS: Guaifenesin/DM 10ml syrup ORAL PRN (15:32)
--- NOTE | 2019-03-06 16:30 | History and Physical Report ---
DATE OF ADMISSION: 03/06/2019 CHIEF COMPLAINT AND REASON FOR HOSPITALIZATION: She is a 58-year-old lady with metastatic breast cancer, admitted with suicidal expressions and uncontrolled pain. HISTORY OF PRESENT ILLNESS: The patient states she has breast cancer, metastatic. She has apparently been in the emergency room for 48 hours after suicidal ideations and has told me that really she stated she has uncontrolled pain. The patient has had breast cancer for about two years. She had bilateral mastectomies and reconstructive surgery, chemotherapy for only two months and some radiation therapy. ALLERGIES: None known. MEDICATIONS: The patient tells me, she takes morphine 100 mg q.12 h. and then [place], oxycodone, Dilaudid as a p.r.n. She takes Arimidex, Geodon, Cogentin, Dulcolax, and senna. PAST SURGICAL HISTORY: Breasts as above. HABITS: She drinks about 1/2 cup of beer and is asking for topical marijuana. She does not smoke or use other drugs. SOCIAL HISTORY: She is currently living alone. SYSTEM REVIEW: HEAD, EYES, EARS, NOSE, AND THROAT: Vision and hearing is good. ENDOCRINE: No known diabetes or tyroid disease. PULMONARY: No asthma, TB, or chronic cough. CARDIAC: No angina, AK, or palpitations. GASTROINTESTINAL: No GI bleeding or ulcers. There is some constipation. GENITOURINARY: No dysuria, hematuria. NEUROLOGIC: No seizures or paresthesias. MUSCULOSKELETAL: Generalized total body pain. Today her pain seems to be mostly in the left thigh. She walks, but with some difficulty. PHYSICAL EXAMINATION: GENERAL: The patient is alert lady, in no acute distress. VITAL SIGNS: Pulse 95, respirations 20, blood pressure 148/92, temperature 97.8. HEAD, EYES, EARS, NOSE, AND THROAT: Sclerae are nonicteric. Ocular motions intact in all directions. Oral mucosa is moist. NECK: No adenopathy or thyroid enlargement. LUNGS: Clear. HEART: Regular is rhythm. No murmur. ABDOMEN: Soft without organomegaly or masses. EXTREMITIES: No edema, cyanosis, or clubbing. She points to the left thigh, it is an area of concern. NEUROLOGIC: She is alert and responsive. She answers questions appropriately. There is some facial dyskinesias. Ocular motions intact in all directions. Smile symmetric. She moves all extremities. PERTINENT IMAGING: Recent femur x-ray shows a lesion that could be metastatic. X-ray of the pelvis shows scattered osseous significant in the left pelvis concern for metastasis. CT of a hip done on 10/03/2018 shows osteolytic and osteoblastic lesions throughout the lower spine and pelvic bones with partial cortical destruction of the left iliac bone. IMPRESSION: 1. Metastatic breast cancer with uncontrolled pain. 2. Suicidal expression, likely related to uncontrolled pain and bipolar status. 3. Bipolar, admitted. PLAN: Pain control. Psychiatric consult. She was put on a 5150 and she will need a disposition. As she lives alone, it is hard to see if she could manage this condition. Iván Louie M.D. DR: PASCALE JOB#: [id number] CC:
[2019-03-06] MEDS ORDERED: BusPIRone 5mg Tab ORAL SCH (18:00)
[2019-03-06] MEDS ORDERED: Ziprasidone 20mg cap ORAL SCH (18:00)
[2019-03-06] MEDS: Ziprasidone 20mg cap ORAL SCH (18:07)
--- NOTE | 2019-03-06 18:30 | NUR ---
NURSE NOTES: Med rec done by director pharmacy services and Dr. Louie. Will continue home meds as ordered and input by pharmacy.
[2019-03-06] MEDS: LORazepam 0.5mg tab ORAL PRN (18:51)
--- NOTE | 2019-03-06 19:16 | NUR ---
HAND-OFF: Report given to Sanam CACERES. Patient is stable.
--- NOTE | 2019-03-06 19:34 | NUR ---
NURSE NOTES: Left message for Dr. Louie regarding heparin order.
--- NOTE | 2019-03-06 20:00 | NUR ---
NURSE NOTES: Received patient awake, ambulating in bed, AOx4, sitter at the bedside. No suicidal ideation, c/o 10/10 pain. Will administer pain medication per MD order. Port noted on Right upper chest, not accessed. Inserted peripheral IV line (Right hand 24g) as MD order is to access port only during emergencies. Taped Henning needle for port access in patient's paper chart folder, will endorse to AM nurse. Bed low and locked.
[2019-03-06] MEDS: oxyCODONE HCL/Acetaminophen 5/325mg ORAL PRN (21:45)
[2019-03-07] VITALS: BP 111/68
[2019-03-07] MEDS: HYDROcodone/Acetamin 10/325 tab ORAL PRN (01:01)
[2019-03-07 04:00] VITALS: BP 157/96
[2019-03-07] MEDS: Heplock Flush 100 units/ml 3 ml syr INJ SCH ×3 (05:29→22:00)
[2019-03-07 06:17] LABS: ANION GAP 8 mmol/L (5-15); BLOOD UREA NITROGEN 12 mg/dL (7-18); CARBON DIOXIDE 27 MMOL/L (21-32); CHLORIDE 105 MMOL/L (98-107); CREATININE 1.1 MG/DL (0.55-1.30); POTASSIUM 3.9 MMOL/L (3.5-5.1); SODIUM 140 MMOL/L (136-145)
[2019-03-07] MEDS: oxyCODONE HCL/Acetaminophen 5/325mg ORAL PRN ×2 (06:34→11:56)
--- NOTE | 2019-03-07 07:42 | NUR ---
HAND-OFF: Report given to NICKI Tirado.
[2019-03-07 08:00] VITALS: BP 143/94
--- NOTE | 2019-03-07 08:21 | NUR ---
NURSE NOTES: Pt sleeping remains on 06-01 . Current plan will be followed
[2019-03-07] MEDS: Ziprasidone 20mg cap ORAL SCH ×2 (10:05→18:48)
[2019-03-07] MEDS: MS Contin 100mg tab ORAL SCH ×2 (10:07→20:04)
[2019-03-07] MEDS: Heparin 5000 units/ml inj SUBQ SCH ×2 (10:08→20:05)
--- NOTE | 2019-03-07 11:04 | NUR ---
*-* NO INSURANCE INFORMATION IN THE BAR UNABLE TO SEND CLINICALS AND REVIEWS *-*
[2019-03-07] MEDS ORDERED: NS w/KCl 20mEq 1000ml 1,000 ML IV SCH (11:15)
--- NOTE | 2019-03-07 11:19 | NUR ---
NURSE NOTES: Dr Louie called gave orders for padronate 90 mg IVP one dose, and NS with 20 meq 100 ml/hr
[2019-03-07 12:00] VITALS: BP 106/70
[2019-03-07] MEDS: NS w/KCl 20mEq 1000ml 1,000 ML IV SCH ×2 (13:00→23:00)
[2019-03-07] MEDS ORDERED: Pamidronate Disodium Inj 90 MG in Sodium Chloride 550 ML IVPB SCH (13:00)
--- NOTE | 2019-03-07 13:50 | NUR ---
PT EVALUATION NOTE Patient seen for initial evaluation, see complete evaluation for details. Patient presents with generalized weakness and pain which impairs patient's ability to perform mobility tasks. Patient requires min assist for bed mobility and CGA for transfers with FWW. Patient able to ambulate 80 ft with one sitting rest with FWW. Patient will benefit from skilled inpatient PT intervention to address strength, safety and balance for improved level of functional mobility. Recommend discharge to short term SNF for rehab to increase strength, safety and functional mobility once medically cleared by MD. Patient appears to have necessary DME at home. Addendum: 03/07/19 at 1452 by ALEJANDRO GILMORE PT Amended: Links added.
--- NOTE | 2019-03-07 14:20 | NUR ---
Social Service Note BG met with patient to assess for home safety and suicidal ideation. Patient is alert, oriented and verbally responsive. Patient states her pain isn't controlled at home. Patient indicated that she was going to receive palliative care services with [facility]. BG spoke with Mmii from [facility] [phone]. Per Mimi patient has been on services 4 times from Jan 2018 to October 2018. Mimi states patient will not be able to return to service with [facility] due to patient's goals not being inline with a palliative/hospice program. BG informed patient. Patient asked SW to contact her CM from [employer] Jenny Chong [phone]. Jenny FLORES full BG obtained email [email or web address]. Jenny returned call. Jenny was under the impression that patient was able to return to [facility]. Jenny will be in contact with [facility] and if declined will contact another provider. If patient returns home she will require a prescription for pain medication. BG discuss suicidal ideation. Patient states due to her pain she stated she would rather then be in horrible pain. Patient states her psychiatrist is Dr. Galileo Lizarraga [phone] who she has seen for years. Dr. Lizarraga is the physician who referred patient to [facility]. Patient denies suicidal ideations. Patient is pending psych consult. Patient receives oversight and support from [employer]. Will continue to monitor
--- NOTE | 2019-03-07 15:23 | NUR ---
NURSE NOTES: Pt remains on one to one 2 to verbalizations of suicidal verbalization, pt states that her pain being managed. " It feels good not to feel anything" Pt educated on safety and dangers of respiratory suppression , " Pt asked if she wanted to see a financial assistance advisor " No I prayed for God to send me someone to kill me cause I was hurting, " DC arrangements are pending at this time. Has not verbalized suicidal intent
--- NOTE | 2019-03-07 15:40 | NUR ---
NURSE NOTES: Dr Calvert here gave orders to discontinue sitter
--- NOTE | 2019-03-07 15:49 | NUR ---
CASE MANAGEMENT: REVIEW 58 YR OLD FEMALE FROM H: METASTATIC BREAST CA CC: INTRACTABLE PAIN SECONDARY TO METASTATIC SI: BEHAVIOR DISTURBANCE; SUICIDAL IDEATION 97.6 60 16 157/98 95% RA RBC 3.78; H/H 9.7/30.9; CA+ 10.9; ALK PHOS 247; AST 97 IS: IM ATIVAN X1 IM HALDOL X1 NORCO PO X1 IM BENADRYL X1 PHYLICIA-COLACE PO X1 COGENTIN PO X1 GEODON X1 3E MED/SURG DCP: RETURN HOME CASE MANAGEMENT: REVIEW 03/05/19 SI: BEHAVIOR DISTURBANCE; SUICIDAL IDEATION 98.4 86 16 139/86 93% RA 03/05/19 NO LABS IS: GEODON PO QD : 3E MED/SURG CASE MANAGEMENT: 03/06/19 SI: BEHAVIOR DISTURBANCE; SUICIDAL IDEATION 97.8 87 19 161/94 98% RA NO LABS IS: PROTONIX PO QD NORCO PO Q6/PRN IV ZOFRAN Q6/PRN MS CONTIN PO Q12HR ROBITUSSIN PO Q4/PRN GEODON PO BID BUSPAR PO BID HEPARIN SQ Q12 : 3E MED/SURG
[2019-03-07] MEDS: LORazepam 0.5mg tab ORAL PRN ×2 (15:51→23:38)
[2019-03-07 16:00] VITALS: BP 128/72
--- NOTE | 2019-03-07 16:00 | NUR ---
CASE MANAGEMENT: 03/07/19 SI: BEHAVIOR DISTURBANCE; SUICIDAL IDEATION 98.2 74 18 143/94 98% RA CA+ 11.0 IS: IB PAMIDRONATE X1 IVF KCL @100ML/HR PROTONIX PO QD NORCO PO Q6/PRN IV ZOFRAN Q6/PRN MS CONTIN PO Q12HR ROBITUSSIN PO Q4/PRN GEODON PO BID BUSPAR PO BID HEPARIN SQ Q12 : 3E MED/SURG
[2019-03-07] MEDS: Morphine IR 15mg tab ORAL PRN ×2 (16:57→21:28)
--- NOTE | 2019-03-07 18:52 | NUR ---
NURSE NOTES: Dr Louie seen pt spoke to socially responsible investment adviser for discharge for tomorrow. Per Dr Louie will like pt to be discharged with palliative to ensure pt safety. Pt no longer verbalized suicidal ideation upon this writing. Current plan of care will be followed . Pt IV line infiltrated , new line attempted to be started per Dr Louie access to cecy cath can be used for IV fluids. Printing Machine Mechanic and charge nurse present attempted to obtain blood return with no occurrence. Per pt portocath has not been used since she was admitted into [facility] months ago. Reattempt to insert will be made by charge nurse
--- NOTE | 2019-03-07 19:16 | General Progress Note ---
Assessment/Plan Problem List: (1) Hypercalcemia of malignancy ICD Codes: E83.52 - Hypercalcemia SNOMED: 45636756 (2) Metastatic breast cancer ICD Codes: C50.919 - Malignant neoplasm of unspecified site of unspecified female breast SNOMED: 985570174, 160967197 (3) Suicidal ideations ICD Codes: R45.851 - Suicidal ideations SNOMED: 9337914 (4) Pain ICD Codes: R52 - Pain, unspecified SNOMED: 55014209 Assessment/Plan: hypercalcemia giving pamidronate, not suicidal now with adequate pain meds, needs to stablize and arrange outpatient f/u Subjective Constitutional: Reports: weakness HEENT: Reports: no symptoms Cardiovascular: Reports: no symptoms Respiratory: Reports: no symptoms Gastrointestinal/Abdominal: Reports: no symptoms Genitourinary: Reports: no symptoms Neurologic/Psychiatric: Reports: no symptoms, weakness Endocrine: Reports: no symptoms Hematologic/Lymphatic: Reports: anemia Allergies: Coded Allergies: No Known Allergies (Unverified , 12/02/15) Subjective generalized pain improving with opiates Objective Last 24 Hour Vital Signs Date Time Temp Pulse Resp B/P (MAP) Pulse Ox O2 Delivery O2 Flow Rate FiO2 03/07/19 16:00 97.8 72 18 128/72 (90) 03/07/19 12:00 97.3 72 20 106/70 (82) 97 03/07/19 09:00 Room Air 03/07/19 08:00 98.2 74 18 143/94 (110) 98 03/07/19 07:04 97.8 03/07/19 04:00 97.8 75 20 157/96 (116) 03/07/19 01:31 97.6 03/07/19 00:00 97.6 75 20 111/68 (82) 98 03/06/19 23:25 Room Air 03/06/19 21:32 98.8 03/06/19 20:00 97.7 94 18 119/82 (94) 95 Intake and Output 03/06/19 03/07/19 19:00 07:00 Intake Total 400 ml Balance 400 ml Intake Oral 400 ml # Voids 5 Laboratory Tests 03/07/19 05:20: Sodium Level 140, Potassium Level 3.9, Chloride Level 105, Carbon Dioxide Level 27, Anion Gap 8, Blood Urea Nitrogen 12, Creatinine 1.1, Estimat Glomerular Filtration Rate > 60, Glucose Level 102, Calcium Level 11.0H, Ionized Calcium ( Measured) 1.35 Height (Feet): 5 Height (Inches): 4.00 Weight (Pounds): 170 General Appearance: no apparent distress, alert EENT: normal ENT inspection Neck: normal alignment Cardiovascular: normal rate, regular rhythm Respiratory/Chest: lungs clear Abdomen: non tender Edema: no edema noted Arm (L), no edema noted Arm (R), no edema noted Leg (L), no edema noted Leg (R), no edema noted Pedal (L), no edema noted Pedal (R), no edema noted Generalized Neurologic: other - tardeive dyskinesia Iván Louie MD Mar 07, 2019 19:16
--- NOTE | 2019-03-07 19:44 | NUR ---
HAND-OFF: Report given to Stanislav CACERES.
--- NOTE | 2019-03-07 19:53 | NUR ---
NURSE NOTES: Patient in bed awake and oriented. VSS. No SOB noted. 8/10 generalized body pain noted. Due pain medication given. Will try to access port a cath after pain medication is given. No suicide ideation at this time. Needs attended. Call light within reach. Bed is locked and in low position. In stable condition.
[2019-03-07 20:00] VITALS: BP 128/74
[2019-03-07] MEDS ORDERED: Zolpidem 5mg tab ORAL PRN (21:00)
--- NOTE | 2019-03-08 00:15 | Consultation ---
DATE OF CONSULTATION: 03/07/2019 HISTORY OF PRESENT ILLNESS: This is a 58-year-old female with a history of multiple medical comorbidities including stage IV metastatic breast cancer who has been admitted to the hospital at this time for suicidal ideation due to uncontrolled pain. The patient has been here since March 06, 2019 yesterday. The patient stated that she was suicidal as the pain was intolerable and she decided to end her life. She came to the emergency room. She has been treated with pain medication with morphine. As her pain has decreased, she is not suicidal anymore. I just spoke to Dr. Louie who is going to be discharging her with pain medication. She will follow up with her primary care doctor who has been addressing her pain issues as well her oncologist for radiation or chemotherapy. PAST PSYCHIATRIC HISTORY: She is denying any history of suicide attempt however she has been on Geodon for bipolar disorder. PAST MEDICAL HISTORY: Significant for breast cancer and hip pain, metastasized breast cancer to the hip and lower back, also bilateral breast cancer status post reconstruction surgery. ALLERGIES: No known drug allergies. SUBSTANCE USE HISTORY: Significant for opiate. She is addicted to opiate pain medication, has high tolerance. MENTAL STATUS EXAMINATION: The patient is alert and oriented x4, cooperative and pleasant. Mood is depressed. Affect is constricted. Congruent with mood. Thought process is linear and goal oriented. Thought content, no suicidal or homicidal ideation. No psychotic symptoms. Cognition is intact. Insight and judgment is fair. ASSESSMENT: [place] I Opiate dependence. Bipolar disorder versus major depressive disorder. [place] II Deferred. [place] III Hip pain. [place] IV Low [place] V 20 PLAN: 1. The patient will be started on Geodon 80 mg b.i.d. 2. Ativan as needed. 3. The patient is not an imminent danger to self or others. 4. Discussed with Dr. Louie who is going to prescribe her pain medication and follow up with outpatient consultants intern as well as oncologist. Russell Bennett M.D. DR: Billie JOB#: [id number] CC:
--- NOTE | 2019-03-08 02:42 | NUR ---
NURSE NOTES: Tried accessing port a cath no blood return. Inserted IV on L Hand 22G.
[2019-03-08 04:00] VITALS: BP 119/77
[2019-03-08] MEDS: Heplock Flush 100 units/ml 3 ml syr INJ SCH ×3 (04:21→22:00)
[2019-03-08] MEDS: Morphine IR 15mg tab ORAL PRN ×4 (06:00→22:37)
--- NOTE | 2019-03-08 07:46 | NUR ---
NURSE NOTES: Pt received awake requiring assistance for bathroom needs, and retuning back to bed. Pt is able to exit out of bed, but is not able to return to bed without assistance. Pt has possible pending arrangements with palliative care upon discharge; to ensure safe discharge, and safe pain management 2 to hx of mestasis of CA. Upon this writing , plan of care will include pain management, safety, and monitoring for anxious bx. Mood varies rapidly from mild mannered, to tearful not matching situation. Call light is in reach
[2019-03-08 08:00] VITALS: BP 108/74
--- NOTE | 2019-03-08 08:43 | General Progress Note ---
Assessment/Plan Problem List: (1) Hypercalcemia of malignancy ICD Codes: E83.52 - Hypercalcemia SNOMED: 75008040 (2) Metastatic breast cancer ICD Codes: C50.919 - Malignant neoplasm of unspecified site of unspecified female breast SNOMED: 605840828, 227904222 (3) Suicidal ideations ICD Codes: R45.851 - Suicidal ideations SNOMED: 8089558 (4) Pain ICD Codes: R52 - Pain, unspecified SNOMED: 50678146 (5) Gait abnormality ICD Codes: R26.9 - Unspecified abnormalities of gait and mobility SNOMED: 80005898 Assessment/Plan: hypercalcemia giving pamidronate, not suicidal now with adequate pain meds, needs to stablize and arrange outpatient f/u, may need ecf, SW to assess Subjective Constitutional: Reports: weakness HEENT: Reports: no symptoms Cardiovascular: Reports: no symptoms Respiratory: Reports: no symptoms Gastrointestinal/Abdominal: Reports: no symptoms Genitourinary: Reports: no symptoms Neurologic/Psychiatric: Reports: pre-existing deficit Hematologic/Lymphatic: Reports: anemia Allergies: Coded Allergies: No Known Allergies (Unverified , 12/02/15) Subjective generalized pain improving with opiates Objective Last 24 Hour Vital Signs Date Time Temp Pulse Resp B/P (MAP) Pulse Ox O2 Delivery O2 Flow Rate FiO2 03/08/19 04:00 98.1 18 119/77 (91) 95 03/07/19 21:00 Room Air 03/07/19 20:00 97.8 16 128/74 (92) 97 03/07/19 16:00 97.8 72 18 128/72 (90) 03/07/19 12:00 97.3 72 20 106/70 (82) 97 03/07/19 09:00 Room Air Intake and Output 03/07/19 03/08/19 19:00 07:00 Intake Total 480 ml Balance 480 ml Intake Oral 480 ml # Voids 1 Height (Feet): 5 Height (Inches): 4.00 Weight (Pounds): 170 General Appearance: no apparent distress, alert EENT: normal ENT inspection Neck: normal alignment Cardiovascular: normal rate, regular rhythm Respiratory/Chest: lungs clear Edema: no edema noted Arm (L), no edema noted Arm (R), no edema noted Leg (L), no edema noted Leg (R), no edema noted Pedal (L), no edema noted Pedal (R), no edema noted Generalized Neurologic: cash application clerk II-XII grossly normal, other - unsteady gait Iván Louie MD Mar 08, 2019 08:43
--- NOTE | 2019-03-08 08:43 | NUR ---
NURSE NOTES: Pt called curriculum writer to room and asked for curriculum writer to speak to her outside social work professor. Pt is unable to render care for herself. Per Loli PEDERSON she is working on pt receiving assistance. Demario asked if SW can be relayed to Chelsea PEDERSON. Dr Louie here to see pt requested that curriculum writer follow up with SW for assistance and possible SNF placement
[2019-03-08] MEDS: NS w/KCl 20mEq 1000ml 1,000 ML IV SCH ×2 (09:00→16:52)
[2019-03-08] MEDS: MS Contin 100mg tab ORAL SCH ×2 (09:07→20:33)
[2019-03-08] MEDS: Heparin 5000 units/ml inj SUBQ SCH ×2 (09:08→20:41)
[2019-03-08] MEDS: Ziprasidone 20mg cap ORAL SCH ×2 (10:26→17:04)
--- NOTE | 2019-03-08 11:46 | NUR ---
NURSE NOTES: made aware that social work faculty member was contacted per his request for SNF placement, [employer] Specialist referred me case management. gave orders for case management consult for SNF placement. Pt requires assistance , with mobility and adls
[2019-03-08 12:00] VITALS: BP 107/68
--- NOTE | 2019-03-08 12:21 | NUR ---
Social Service Note SW has left messages for Jenny [phone] and Emmanuel [phone] from [employer]. No return call at this time. ordered SNF placement. CM aware and will locate insurance CM. Will monitor.
--- NOTE | 2019-03-08 12:41 | NUR ---
CASE MANAGEMENT:REVIEW 03/08/19 SI: HYPERCALCEMIA OF MALIGNANCY METASTATIC BREAST CANCER. GAIT ABNORMALITY 97.8 78 16 107/68 97% ON RA IS: IVF+KCL@100/HR HEPARIN SQ Q12 MS CONTIN PO Q12 : MED/SURG STATUS PLAN: PATIENT IS FROM HOME BUT NEEDS SNF PLACEMENT FOR UNSTEADY GAIT AND ONLY AMBULATING 50FT NEED TO KNOW WHAT SNF'S HEALTH PLAN IS CONTRACTED WITH
--- NOTE | 2019-03-08 12:43 | NUR ---
Social Service Note SW spoke with Jenny from [employer]. Patient is at her baseline. Patient just returned home from a previous hospitalization at [facility]'s patient's contracted provider. Jenny has been in contact with [facility] and they will visit patient at home on to assess for patient's needs and determine hospice vs a palliative program would suit patient's needs. Patient receives once a week food delivery to the home on Thursday from [employer]. Patient receives transportation services from the [facility] as needed. Since patient has been on both hospice and palliative services there has not been a need for follow up appointments to MD office. A physician from [facility] visited patient at home. Patient has a FWW and W/C at home. Patient's therapist April has been in contact with and will continue to provide oversight at home. Per Jenny [facility] provide whole person care. Prescription should be filled prior to discharge. Patient will require ambulance transportation home. Will discuss with EVELIA.
[2019-03-08] MEDS: Guaifenesin/DM 10ml syrup ORAL PRN (13:00)
--- NOTE | 2019-03-08 13:27 | NUR ---
*-* INSURANCE *-* ALL CLINICALS AND REVIEWS HAVE BEEN FAXED TO: [facility] TRACKING#[id number] NO CM ASSIGNED YET PH#[phone] FAX#[phone] REVIEWS/CLINCIALS
[2019-03-08 16:00] VITALS: BP 111/67
--- NOTE | 2019-03-08 18:19 | NUR ---
NURSE NOTES: Refused to have gown changed , offered through out shift ' I am okay" Prune juice given due to statements " I need t poop poop better" Side effects of pain medication explained
--- NOTE | 2019-03-08 19:38 | NUR ---
HAND-OFF: Report given to Stanislav CACERES pt refused to change gown , current plan will be followed.
[2019-03-08 20:00] VITALS: BP 115/68
--- NOTE | 2019-03-08 23:37 | NUR ---
NURSE NOTES: Patient in bed awake and oriented. VSS. No SOB noted. 8/10 generalized body pain. PRN pain medication given. No signs of distress noted. Needs attended. Call light within reach. In stable condition.
[2019-03-09] VITALS: BP 119/71
[2019-03-09] MEDS: Morphine IR 15mg tab ORAL PRN ×5 (03:10→16:49)
[2019-03-09] MEDS: NS w/KCl 20mEq 1000ml 1,000 ML IV SCH ×2 (03:10→15:00)
[2019-03-09 04:00] VITALS: BP 122/74
[2019-03-09] MEDS: LORazepam 0.5mg tab ORAL PRN (05:11)
--- NOTE | 2019-03-09 07:30 | NUR ---
NURSE NOTES: Received report from Stanislav CACERES. Patient is awake and oriented, no acute distress noted, reporting generalized, chronic pain. In wheelchair, able to move on own. IV intact, asymptomatic, patient refusing IVF at this time. Updated on plan of care, call light and walker within reach. Patient reminded to call for assistance when getting up. Fall precautions maintained. Will continue to monitor.
[2019-03-09 08:00] VITALS: BP 119/71
[2019-03-09] MEDS: MS Contin 100mg tab ORAL SCH (08:59)
[2019-03-09] MEDS: Ziprasidone 20mg cap ORAL SCH ×2 (08:59→17:40)
[2019-03-09] MEDS: Heparin 5000 units/ml inj SUBQ SCH (09:02)
--- NOTE | 2019-03-09 10:21 | NUR ---
Social Service Note BG spoke with CM and patient's insurance will not authorize SNF placement. Patient will return home. BG informed Jenny of [employer]. [facility] hospice will assess patient for service tomorrow. Prescription will be filled by [facility]. Patient will transfer home via ambulance.
--- NOTE | 2019-03-09 11:19 | Nephrology Progress Note ---
Assessment/Plan Assessment/Plan: A/P (1) Hypercalcemia of malignancy - treated with bisphosphonate (2) Metastatic breast cancer - Malignant neoplasm of unspecified site of unspecified female breast (3) Suicidal ideations - Suicidal ideation none. Per PSY (4) Pain - Pain meds Rx per Dr Liban CASON home with [facility] Subjective Date patient seen: Mar 09, 2019 Time patient seen: 11:14 ROS Limited/Unobtainable: No Allergies: Coded Allergies: No Known Allergies (Unverified , 12/02/15) Subjective Patient anxious Objective Last 24 Hour Vital Signs Date Time Temp Pulse Resp B/P (MAP) Pulse Ox O2 Delivery O2 Flow Rate FiO2 03/09/19 04:00 98.4 81 20 122/74 (90) 95 03/09/19 00:00 98.6 84 18 119/71 (87) 98 03/08/19 21:00 Room Air 03/08/19 20:00 98.1 77 18 115/68 (84) 97 03/08/19 16:00 97.8 70 16 111/67 (82) 98 03/08/19 12:00 97.8 78 16 107/68 (81) 97 Intake and Output 03/08/19 03/09/19 18:59 06:59 Intake Total 1100 ml 800 ml Balance 1100 ml 800 ml Intake Oral 800 ml IV Total 1100 ml # Voids 3 Height (Feet): 5 Height (Inches): 4.00 Weight (Pounds): 171 General Appearance: no apparent distress, alert EENT: normal ENT inspection Neck: normal alignment, supple Cardiovascular: normal rate, regular rhythm Respiratory/Chest: lungs clear, normal breath sounds Abdomen: non tender, soft Edema: no edema noted Arm (L), no edema noted Arm (R), no edema noted Leg (L), no edema noted Leg (R), no edema noted Pedal (L), no edema noted Pedal (R), no edema noted Generalized Israel Mayers MD Mar 09, 2019 11:19
[2019-03-09] MEDS ORDERED: MORPHINE SULFAT30 M4 PO (11:40)
[2019-03-09] MEDS ORDERED: GEODON80 MG PO (11:41)
--- NOTE | 2019-03-09 11:58 | NUR ---
NURSE NOTES: Reviewed corrected home medication list with Dr. Cevallos including medications prescribed by Dr. Louie. Home medication list edited per MD order. Medications from Dr. Louie faxed to [facility] to be filled prior to discharge. Patient updated on discharge plan and in agreement with plan. No DME needed, patient has walker and wheelchair at home.
[2019-03-09 12:00] VITALS: BP 121/75
--- NOTE | 2019-03-09 12:10 | NUR ---
CASE MANAGEMENT:REVIEW 03/09/19 SI: HYPERCALCEMIA OF MALIGNANCY PMH: METASTATIC BREAST CANCER. GAIT ABNORMALITY 98.4 81 20 122/74 95%RA IS: IVF+KCL@100/HR HEPARIN SQ Q12 MS CONTIN PO Q12 PROTONIX PO QD : 3E MED/SURG UNIT PLAN: PATIENT IS FROM HOME BUT NEEDS SNF PLACEMENT FOR UNSTEADY GAIT AND ONLY AMBULATING 50FT NEED TO KNOW WHAT SNF'S HEALTH PLAN IS CONTRACTED WITH
--- NOTE | 2019-03-09 15:30 | NUR ---
NURSE NOTES: Dr. Bennett aware pt. is Discharging. Ok to Elvis.
--- NOTE | 2019-03-09 15:33 | NUR ---
*-* INSURANCE *-* ALL CLINICALS AND REVIEWS HAVE BEEN FAXED TO: [facility] TRACKING#[id number] NO CM ASSIGNED YET PH#[phone] FAX#[phone] REVIEWS/CLINCIALS
--- NOTE | 2019-03-09 15:59 | NUR ---
NURSE NOTES: Received a call from Ginger from [facility] to obtain some patient information paper faxed at [phone] and phone number [phone].
[2019-03-09 16:00] VITALS: BP 151/88
--- NOTE | 2019-03-09 16:12 | NUR ---
NURSE NOTES: Called [facility] and arranged for BLS transport to home for patient. Ambulance will arrive approximately 1700.
[2019-03-09 18:30] VITALS: BP 121/75
--- NOTE | 2019-03-09 18:40 | NUR ---
NURSE NOTES: Patient discharged without distress. Patient provided with discharge education/instructions and teaching provided on new medications. Patient provided with additional narcotic safety education and educated not to take next PRN dose of morphine IR PO PRN until at least 1949 tonight (3 hours after last dose given in hospital). Patient verbalized understanding of provided education/instructions. Hospice to follow up with patient in her home tomorrow. Patient provided with Rx from pharmacy and new Rx from [facility]. Patient given all belongings. IV removed intact. Transferred to EMS [facility] safely and transported off unit by EMS crew.
--- NOTE | 2019-03-10 10:42 | Discharge Summary ---
Discharge Summary Discharge Summary _ DATE OF ADMISSION: 03/06/2019 DATE OF DISCHARGE: 03/09/2019 DISCHARGED BY: Dr. Leach REASON FOR ADMISSION: 58 years old female with metastatic breast cancer admitted to the hospital with suicidal ideation and uncontrolled pain. Patient had a breast cancer for about 2 years. Patient undergone bilateral mastectomy and reconstructive surgery, chemotherapy and some radiation. Recent femur x-ray showed a lesion, that could be metastatic. X-ray of the pelvis revealed scattered osseous lucency, most significant in the left pelvis, concerning for metastasis. CT of the hip, done on 10/03/2017, showed osteolytic and osteoblastic lesions throughout the lower spine and pelvic bones with partial cortical destruction of the left iliac bone. Patient admitted to medical surgical floor for further management. CONSULTANTS: psychiatrist [facility] COURSE: Patient admitted to medical surgical floor. Pain management was addressed. Psychiatrist seen and evaluated patient . Patient initially was placed on 5150. Sitter provided for safety. Psychiatrist seen and evaluated patient and started her on Geodon 80 mg twice daily. Ativan was on board as needed. Per psychiatrist evaluation , patient was not at imminent danger to self or others. With adequate pain control , patient was no more suicidal. 5150 discontinued. Patient noted to have hypercalcemia with calcium 11, treated with pamidronate. DVT and GI prophylaxis provided. bench worker seen and evaluated patient . Patient's insurance did not authorize SNF placement. Patient was discharged home with hospice services. FINAL DIAGNOSES: Metastatic breast cancer with uncontrolled pain Suicidal ideations, likely related to uncontrolled pain and bipolar status- resolved Bipolar disorder versus major depressive disorder Opiate dependency Hypercalcemia of malignancy DISCHARGE MEDICATIONS: See Medication Reconciliation list. DISCHARGE INSTRUCTIONS: Patient was discharged home with hospice services. I have been assigned to dictate discharge summary for this account. I was not involved in the patient's management. Teresita Perez NP Mar 10, 2019 10:42
--- NOTE | 2019-03-11 16:04 | NUR ---
*-* INSURANCE *-* DISCHARGE SUMMARY HAS BEEN FAXED TO: [facility] TRACKING#[id number] NO CM ASSIGNED YET #[phone] FAX#[phone] REVIEWS/CLINCIALS
== END 2019-03-09 18:40 | disposition hospice, home (50) | DRG 861 ==
LOC: EMR 10:35 → EDBEDREQ 03-06 10:07 → INTOOBSV 03-06 10:46 → OBSVTOIN 03-06 10:46 → 3E 03-06 10:46 → UNDOADMOB 03-06 10:46 → 3E 03-06 10:50
DX: G89.3 Neoplasm related pain (acute) (chronic) (principal); C79.51 Secondary malignant neoplasm of bone; E83.52 Hypercalcemia; R45.851 Suicidal ideations; F31.9 Bipolar disorder, unspecified; Z85.3 Personal history of malignant neoplasm of breast; Z92.3 Personal history of irradiation; Z90.13 Acquired absence of bilateral breasts and nipples; F11.20 Opioid dependence, uncomplicated; R26.9 Unspecified abnormalities of gait and mobility
CPT/HCPCS: 36415; 80048; 80053; 80307; 80329; 81003; 82330; 85025; 96372; 99285; C9399; G0378; J2430

== ENCOUNTER 2019-03-13 02:33 | Inpatient (IN) | payer OTHER ==
[~2019-03-13] VITALS: Ht 167.6 cm; Wt 85.9 kg
[~2019-03-13 02:33] MED LIST changes: +ANASTROZOLE1 MG PO; +BENZTROPINE ME0.5 MG PO; +DOCUSATE SODIU250 MG ORAL; +GEODON80 MG PO; +GUAIFENESIN-CO118 M1 ORAL; +HYDROCODON-ACE1 EA13 ORAL; +HYDROMORPHONE HC2 M1 ORAL; +LIDODERM700 M1 TOPIC; +LORAZEPAM0.5 MG ORAL; +MORPHINE SULFAT30 M4 PO; +MS CONTIN100 MG ORAL; +OXYCODONE HCL30 MG ORAL; +PANTOPRAZOLE SO40 MG ORAL; +SENNA8.6 M2 PO; +ZIPRASIDONE HCL60 MG ORAL
[2019-03-13 02:37] VITALS: BP 118/74
--- NOTE | 2019-03-13 02:38 | NUR ---
ED Nurse Note: Patient brought in by ambulance with complaints of left leg pain, chronic. Patient expresses that leg is unrelieved by prescribed medication. Patient's legs have bilateral edema 2+ with warmth and redness aat left knee area. Will continue to monitor and service appropriate orders.
--- NOTE | 2019-03-13 03:00 | NUR ---
ED Nurse Note: Nonpharmaceutical pain management measures initiated. LEft leg placed on a soft pillow and bed tllted to elevation of lower extremities. Patient placed on 2L of O2 NC due to saturation level of 90-91 when sleeping. Will continue to monitor.
--- NOTE | 2019-03-13 03:34 | Emergency Room Report ---
History of Present Illness General Chief Complaint: Pain Source: Patient Present Illness HPI 58-year-old female presents ED for evaluation. Brought in by EMS from home. Cleaning of left leg pain. Patient history of metastatic breast CA with spread to the bone. Has been having pain to her left leg. states that her home medications are not helping. Pain is 10 out of 10, sharp, nonradiating. Unable to walk because of pain. Was recently admitted here for intractable pain. Also told [employer] that she was suicidal and was placed on 5150 hold. Upon discharge patient was given hospice care instructions. States that she was unable to call the hospice care as her phone was broken. States that she lives alone does not have family or friends to contact. Nuys chest pain or shortness of breath. Denies fevers or chills. No other aggravating relieving factors. Denies any other associated symptoms Allergies: Coded Allergies: No Known Allergies (Unverified , 12/02/15) Patient History Past Medical History: asthma, other - metastatic breast cancer Past Surgical History: none Pertinent Family History: none Social History: Denies: smoking, alcohol use, drug use Now: No Immunizations: UTD Reviewed Nursing Documentation: PMH: Agreed; PSxH: Agreed Nursing Documentation-PMH Past Medical History: No History, Except For Hx Cardiac Problems: No Hx Asthma: Yes Hx Cancer: Yes - BREAST Hx Gastrointestinal Problems: No Hx Neurological Problems: No Review of Systems All Other Systems: negative except mentioned in HPI Physical Exam Vital Signs Date Time Temp Pulse Resp B/P (MAP) Pulse Ox O2 Delivery O2 Flow Rate FiO2 03/13/19 02:34 98.1 100 14 118/74 (89) 99 Room Air Sp02 EP Interpretation: reviewed, normal General Appearance: alert, GCS 15, non-toxic, moderate distress Head: normocephalic Eyes: bilateral eye normal inspection, bilateral eye PERRL ENT: normal ENT inspection Neck: normal inspection Respiratory: chest non-tender, lungs clear, normal breath sounds, speaking full sentences Cardiovascular #1: regular rate, rhythm, no edema Gastrointestinal: normal inspection Rectal: deferred Genitourinary: no CVA tenderness Musculoskeletal: tender - LLE Neurologic: alert, oriented x3, responsive, motor strength/tone normal, sensory intact, speech normal Psychiatric: no suicidal/homicidal ideation, no delusions, anxious Skin: other - see nursing notes Lymphatic: normal inspection Medical Decision Making Diagnostic Impression: Primary Impression: Metastatic breast cancer Additional Impression: Leg pain Qualified Codes: M79.605 - Pain in left leg ER Course Hospital Course 58 yo F presents with leg pain. h/o metastatic breast cancer Differential diagnoses include: chronic pain, metastatic lesions, neuropathic pain Clinical course Patient placed on stretcher. keno manager. After initial history and physical I reviewed EMR. Patient was just discharged from here recently. Had extensive work-up including imaging which showed osteolytic lesions in her leg. Patient also had psychiatric evaluation she was placed on 5150 hold Patient is displaying no psychiatric behavior at this time. Patient took several of her pain meds prior to arrival and is not requesting any additional pain medication. However she states she is unable to walk. Patient has poor social network and does not have any support system. I do not believe patient can be safely discharged home at this time. Patient will likely require admission for pain management as well as social care disposition such as a long term facility Labs - no leukocytosis, Hb/Hct stable. electrolytes ok. Case discussed with Dr. Louie and he agreed to accept the patient to his service for further care and support I feel this is a highly complex case requiring extensive working including EKG/ Rhythm strip, Xray/CT/US, Blood/urine lab work, repeat exams while in ED, and administration of strong opiates/narcotics for pain control, admission to hospital or close patient follow up. Diagnosis -metastatic breast cancer, leg pain Patient admitted to floor in serious condition Labs Test 03/13/19 02:40 03/13/19 04:20 03/13/19 04:55 Sodium Level 136 MMOL/L (136-145) Potassium Level 4.1 MMOL/L (3.5-5.1) Chloride Level 100 MMOL/L (98-107) Carbon Dioxide Level 28 MMOL/L (21-32) Anion Gap 9 mmol/L (5-15) Blood Urea Nitrogen 16 mg/dL (7-18) Creatinine 0.9 MG/DL (0.55-1.30) Estimat Glomerular Filtration Rate > 60 mL/min (>60) Glucose Level 106 MG/DL (74-106) Calcium Level 10.0 MG/DL (8.5-10.1) Total Bilirubin 0.4 MG/DL (0.2-1.0) Aspartate Amino Transf (AST/SGOT) 254 U/L (15-37) Alanine Aminotransferase (ALT/SGPT) 107 U/L (12-78) Alkaline Phosphatase 215 U/L (46-116) Total Protein 7.6 G/DL (6.4-8.2) Albumin 3.1 G/DL (3.4-5.0) Globulin 4.5 g/dL Albumin/Globulin Ratio 0.7 (1.0-2.7) White Blood Count 6.3 K/UL (4.8-10.8) Red Blood Count 3.91 M/UL (4.20-5.40) Hemoglobin 10.0 G/DL (12.0-16.0) Hematocrit 31.0 % (37.0-47.0) Mean Corpuscular Volume 79 FL (80-99) Mean Corpuscular Hemoglobin 25.5 PG (27.0-31.0) Mean Corpuscular Hemoglobin Concent 32.2 G/DL (32.0-36.0) Red Cell Distribution Width 13.3 % (11.6-14.8) Platelet Count 341 K/UL (150-450) Mean Platelet Volume 5.1 FL (6.5-10.1) Neutrophils (%) (Auto) 70.3 % (45.0-75.0) Lymphocytes (%) (Auto) 18.8 % (20.0-45.0) Monocytes (%) (Auto) 9.2 % (1.0-10.0) Eosinophils (%) (Auto) 0.4 % (0.0-3.0) Basophils (%) (Auto) 1.4 % (0.0-2.0) Urine Color Pale yellow Urine Appearance Clear Urine pH 5 (4.5-8.0) Urine Specific [place] 1.015 (1.005-1.035) Urine Protein 1+ (NEGATIVE) Urine Glucose (UA) Negative (NEGATIVE) Urine Ketones Negative (NEGATIVE) Urine Blood 1+ (NEGATIVE) Urine Nitrite Negative (NEGATIVE) Urine Bilirubin Negative (NEGATIVE) Urine Urobilinogen Normal MG/DL (0.0-1.0) Urine Leukocyte Esterase Negative (NEGATIVE) Urine RBC 0-2 /HPF (0 - 2) Urine WBC 0-2 /HPF (0 - 2) Urine Squamous Epithelial Cells Occasional /LPF Urine Bacteria Few /HPF (NONE) Last Vital Signs Date Time Temp Pulse Resp B/P (MAP) Pulse Ox O2 Delivery O2 Flow Rate FiO2 03/13/19 02:34 98.1 100 14 118/74 (89) 99 Room Air Status: improved Disposition: ADMITTED INPATIENT Condition: Serious Referrals: NON PHYSICIAN (PCP) Cam Grajeda MD Mar 13, 2019 03:34
--- NOTE | 2019-03-13 04:00 | NUR ---
ED Nurse Note: Patient resting comfortably, easily arousable. Straight catheter initiated for urine collection. Specimen sent to lab.
[2019-03-13 04:49] LABS: BASOPHILS % (AUTO) 1.4 % (0.0-2.0); EOSINOPHILS % (AUTO) 0.4 % (0.0-3.0); LYMPHOCYTES % (AUTO) 18.8 % (20.0-45.0); MEAN CORPUSCULAR VOLUME 79 FL (80-99); MONOCYTES % (AUTO) 9.2 % (1.0-10.0); NEUTROPHILS % (AUTO) 70.3 % (45.0-75.0); PLATELET COUNT 341 K/UL (150-450); RED BLOOD COUNT 3.91 M/UL (4.20-5.40); RED CELL DISTRIBUTION WIDTH 13.3 % (11.6-14.8); WHITE BLOOD COUNT 6.3 K/UL (4.8-10.8)
[2019-03-13 04:53] LABS: ANION GAP 9 mmol/L (5-15); BLOOD UREA NITROGEN 16 mg/dL (7-18); CARBON DIOXIDE 28 MMOL/L (21-32); CHLORIDE 100 MMOL/L (98-107); CREATININE 0.9 MG/DL (0.55-1.30); POTASSIUM 4.1 MMOL/L (3.5-5.1); SODIUM 136 MMOL/L (136-145)
[2019-03-13 04:57] LABS: ALANINE AMINOTRANSFERASE 107 U/L (12-78); ALBUMIN 3.1 G/DL (3.4-5.0); ALBUMIN/GLOBULIN RATIO 0.7 (1.0-2.7); ALKALINE PHOSPHATASE 215 U/L (46-116); ASPARTATE AMINO TRANSFERASE 254 U/L (15-37); BILIRUBIN,TOTAL 0.4 MG/DL (0.2-1.0)
--- NOTE | 2019-03-13 05:00 | NUR ---
ED Nurse Note: Patient sleeping soundly with no s/s of acute distress. Positional relief of pain effective. Will continue monitor.
--- NOTE | 2019-03-13 05:05 | NUR ---
spoke with . wanted to keep patient in ER and consult hospital social worker in the morning then he will admit the patient. Nursing order department supervisor aware.
[2019-03-13 05:10] LABS: APPEARANCE,URINE CLEAR; BILIRUBIN, URINE NEGATIVE (NEGATIVE); COLOR,URINE PALE YELLOW; GLUCOSE, URINE (UA) NEGATIVE (NEGATIVE); KETONES,URINE NEGATIVE (NEGATIVE); LEUKOCYTE ESTERASE ,URINE NEGATIVE (NEGATIVE); NITRITE,URINE NEGATIVE (NEGATIVE); PH,URINE 5 (4.5-8.0); PROTEIN,URINE 1+ (NEGATIVE); UROBILINOGEN,URINE NORMAL MG/DL (0.0-1.0)
[2019-03-13 05:55] VITALS: BP 112/58
--- NOTE | 2019-03-13 05:55 | NUR ---
ED Nurse Note: Patietn still sleeping, vital signs within normal range and documented.
--- NOTE | 2019-03-13 07:07 | NUR ---
HAND-OFF: Report given to Alec CACERES.
--- NOTE | 2019-03-13 07:10 | NUR ---
ED Nurse Note: PT IS SLEEPING WELL. NO ACUTE DISTRESS.
--- NOTE | 2019-03-13 10:08 | NUR ---
HAND-OFF: Report given to NICKI Rider. Pt stable and awake
[2019-03-13 10:20] VITALS: BP 142/88
--- NOTE | 2019-03-13 10:30 | NUR ---
NURSE NOTES: Pt came up to unit via ethan w/belongings accounted for. Pt A&Ox3, VSS, and in no apparent distress. Pt very sedated; states she took pain meds before coming to ER; pt also has Fentanyl 50 mcg patch on chest. IV site intact/asymptomatic & H/L'd and skin intact. Will take home meds down to pharmacy and contact MD for admission orders.
[2019-03-13] MEDS ORDERED: OXYCODONE-ACET1 EAC3 ORAL (10:38)
[2019-03-13] MEDS ORDERED: FENTANYL1 EAC4 TDERMAL (10:53)
[2019-03-13 12:00] VITALS: BP 127/60
--- NOTE | 2019-03-13 12:22 | NUR ---
CASE MANAGEMENT: INITIAL REVIEW 58 YO F BIBA FROM HOME CC: PAIN PMHx: BREAST CA METS TO BONE. ASTHMA. SI:LEG PAIN T 98.1 HR 00 RR 14 B/P 118/74 SATS 99% ON RA AST 254 ALT 107 ALP 215 IS: SALINE FLUSH PATIENT ADMITTED TO MED/SURG 03/13/2019 @ 0415 DCP: PATIENT TO BE DISCHARGED TO HOME ONCE MEDICALLY CLEARED. PLAN OF CARE: SSW CONSULT Addendum: 03/14/19 at 1019 by Paige Mendoza CM INTERQUAL MET
[2019-03-13] MEDS ORDERED: Sennosides 8.6mg tab ORAL PRN (13:30)
[2019-03-13] MEDS ORDERED: Zolpidem 5mg tab ORAL PRN (13:30)
--- NOTE | 2019-03-13 14:15 | NUR ---
NURSE NOTES: Notified Dr. Louie about pt's swollen LLE and asked if he'd like to order VD before placing SCDs; per Dr. Louie, no new orders. Also, informed him about pt coming in to hospital w/Fentanyl 50 mcg patch; Dr. Louie instructed me to remove it since he did not order a patch. Will continue to monitor.
--- NOTE | 2019-03-13 14:43 | NUR ---
NURSE NOTES: Removed and disposed of Fentanyl 50 mcg patch; witnessed by Charge Nurse, Phuong. Will continue to monitor.
[2019-03-13 16:00] VITALS: BP 125/80
--- NOTE | 2019-03-13 17:00 | History and Physical Report ---
DATE OF ADMISSION: 03/13/2019 CHIEF COMPLAINT/REASON FOR HOSPITALIZATION: The patient is a 58-year-old lady with metastatic breast cancer and bipolar disease admitted with generalized pain, difficulty walking, unable to care for herself. HISTORY OF PRESENT ILLNESS: The patient was admitted here 03/06/2019 with uncontrolled pain, suicidal ideation expression due to uncontrolled pain. Her pain was controlled by resuming her opiates and she did have some mild hypercalcemia up to 11 and received a dose of Aredia. I had talked to case management several times prior to her discharge and was hoping she could go to a alf facility and follow up with the hospice program but she ended up going home. She states she cannot function at home. She cannot move her left leg and for that reason, she came back to the emergency room. Apparently, she has had multiple emergency room visits, has social issues, has been in and out of hospice several times. Her primary physicians are not on staff in this hospital. ALLERGIES: None known. MEDICATIONS: Morphine Contin 100 mg every 12 hours and morphine immediate release 30 mg q.3 hours p.r.n., Geodon 80 mg b.i.d., Arimidex. She also took Cogentin in the past and laxatives. HABITS: She drinks some beer and used topical marijuana in the past. She is a nonsmoker. PAST SURGICAL HISTORY: Bilateral mastectomies and reconstructive surgery. SYSTEM REVIEW: HEAD ,EYES, EARS, NOSE, AND THROAT: Vision and hearing is good. ENDOCRINE: No diabetes or thyroid disease. PULMONARY: No asthma, TB, chronic cough. CARDIAC: No angina or [place]. GASTROINTESTINAL: No nausea, vomiting. There is some chronic constipation. GENITOURINARY: No dysuria. NEUROLOGIC: No seizures. No known brain metastasis. MUSCULOSKELETAL: History of generalized body pain and known multiple metastasis. PHYSICAL EXAMINATION: GENERAL: The patient is sleepy but arousable. VITAL SIGNS: Temperature 98, pulse 107, respirations 18, blood pressure 151/88. HEAD, EYES, EARS, NOSE, AND THROAT: Sclerae are nonicteric. Ocular motions intact in all directions. Oral mucosa slightly dry. NECK: No adenopathy or thyroid enlargement. LUNGS: Clear. HEART: Rhythm is regular. I hear no murmur. ABDOMEN: Soft without organomegaly or masses. EXTREMITIES: Show degenerative changes in the knees. She has generalized weakness. She can move her left leg although gait is not tested at this time. NEUROLOGIC: She is alert and responsive. LABORATORY AND DIAGNOSTIC DATA: Pertinent laboratories on this admission, calcium is 10.00 with an albumin of 3.1. Electrolytes normal. Elevated liver enzymes. IMPRESSION: 1. Metastatic breast cancer. 2. Chronic pain due to bone metastasis. 3. Elevated liver enzymes likely liver metastasis. 4. Anemia. 5. Gait disorder. 6. Social issues and unable to manage at home, likely needs a alf facility. PLAN: 1. Continue her pain regimen. 2. We will need social service to make appropriate discharge plan. Iván Louie M.D. DR: Lizabeth JOB#: [id number] CC:
[2019-03-13] MEDS: Morphine IR 15mg tab ORAL PRN (17:28)
[2019-03-13] MEDS: Miralax 17gm pkt ORAL SCH (18:00)
[2019-03-13] MEDS: Ziprasidone 20mg cap ORAL SCH (18:22)
--- NOTE | 2019-03-13 19:30 | NUR ---
HAND-OFF: Report given to NICKI Paulson.
[2019-03-13 20:00] VITALS: BP 116/67
--- NOTE | 2019-03-13 21:00 | NUR ---
NURSES NOTES: Patient in bed, easily aroused by name, A/O, pt is able to communicate needs and answers appropriately. Patient displays no outward s/s of distress. Unlabored breathing pattern noted, even, NC in place set to 2L/min. BLE elevated on pillow for edematous extremities. 2000 VS WNL. Patient requesting a sandwich for snack. All due 2100 meds given to patient. Morphine 100mg given as part of routine 2100 meds. Patient became lethargic, but remains aroused to name and responds to questions appropriately. RR normal. Patient being monitored closely and often. Call light within reach. Bed at lowest level.
[2019-03-13] MEDS: Docusate 100mg cap ORAL SCH (21:22)
[2019-03-13] MEDS: MS Contin 100mg tab ORAL SCH (21:23)
[2019-03-13] MEDS: Heparin 5000 units/ml inj SUBQ SCH (21:27)
[2019-03-14] VITALS: BP 153/86
[2019-03-14] MEDS: Morphine IR 15mg tab ORAL PRN ×2 (02:22→17:31)
[2019-03-14 04:00] VITALS: BP 107/62
[2019-03-14] MEDS: guaiFENesin w/Codeine 5ml Liq ud ORAL PRN (06:44)
--- NOTE | 2019-03-14 07:30 | NUR ---
NURSE NOTES: Patient is in bed awake and able to verbalize needs. Stable. Complains of pain, will administer pain medication as ordered. Breathing is even and unlabored. Patient is in bed in locked and lowest position with call light within reach. Will continue to monitor.
[2019-03-14 08:00] VITALS: BP 134/82
--- NOTE | 2019-03-14 08:01 | NUR ---
HAND OFF: Report given to NICKI Azul. Monitor pt lethargy after pain meds administered endorsed. Patient left in stable condition.
[2019-03-14] MEDS: MS Contin 100mg tab ORAL SCH ×2 (08:43→20:26)
[2019-03-14] MEDS: Anastrazole 1mg tab ORAL SCH (08:44)
[2019-03-14] MEDS: Docusate 100mg cap ORAL SCH ×2 (08:44→20:26)
[2019-03-14] MEDS: Ziprasidone 20mg cap ORAL SCH ×2 (08:44→17:31)
[2019-03-14] MEDS: Heparin 5000 units/ml inj SUBQ SCH ×2 (08:48→20:27)
[2019-03-14] MEDS: Miralax 17gm pkt ORAL SCH ×2 (08:48→17:34)
--- NOTE | 2019-03-14 11:03 | NUR ---
CASE MANAGEMENT:REVIEW 03/14/19 SI: LEG PAIN; GAIT ABNORMALITY 97.8 86 20 134/82 97% NC 2L IS: ARIMIDEX PO QD PROTONIX PO AC MS CONTIN PO Q12HR MORPHINE PO Q3HR/PRN HEPARIN SQ Q12HR GEODON PO BID ROBITUSSIN PO Q6/PRN : 4E MS UNIT DCP: PLACEMENT NEEDED
--- NOTE | 2019-03-14 11:14 | NUR ---
*-* NO INSURANCE INFORMATION IN THE BAR UNABLE TO SEND CLINICALS OR REVIEWS *-*
[2019-03-14] MEDS: LORazepam 0.5mg tab ORAL PRN (11:43)
[2019-03-14 12:00] VITALS: BP 118/78
--- NOTE | 2019-03-14 14:03 | NUR ---
Social Service Note SW familiar with patient from previous admission. Patient states hospice did not come to her home as scheduled on 03/10. BG spoke with [facility] [phone] and per their documentation Hospice medical support assistant declined to accept patient for services indicating they are unable to control patient's pain level. BG left messages for patient's services providers from [employer] Jenny [phone] and Emmanuel [phone]. BG spoke with to obtain authorization from [facility] for SNF placement with hospice. Will continue to monitor.
--- NOTE | 2019-03-14 15:40 | NUR ---
P.T NOTE:LATE ENTRY 1100 P.T EVALUATION COMPLETED. PATIENT IS ALERT, O X 4 , COOPERATIVE. PATIENT C/O SEVERE PAIN ON LOWER BACK, RIB CAGE AND L GROIN/THIGH AGGRAVATED BY MOBILITY. PATIENT WAS PREMEDICATED PRIOR TO P.T EVALUATION. PATIENT TOLERATED P.T EVALUATION POORLY AND WAS CRYING THE ENTIRE SESSION DUE TO ABOVE REASON HOWEVER WAS DETERMINED TO GET OOB. PATIENT CURRENTLY REQUIRES EXTENDED AMOUNT OF TIME AND MIN A X 1 FOR BED MOBILITY ESPECIALLY TO MANEUVER LLE IN AND OOB, MIN A X FOR SIT TO/FROM STAND TRANSITION AND WAS ONLY ABLE TAKE 3-4 TINY LABORED STEPS USING THE FWW WITH MIN A X 1. PATIENT WILL BENEFIT FROM SKILLED P.T SERVICES TO IMPROVE STRENGTH AND ACTIVITY TOLERANCE TO INCREASE MOBILITY INDEPENDENCE AND RETURN TO PLOF. RECOMMEND SNF VS HOME WITH P.T. THANK YOU FOR THIS REFERRAL.
[2019-03-14 16:00] VITALS: BP 121/78
--- NOTE | 2019-03-14 16:15 | NUR ---
DISCHARGED PLAN: SPOKE WITH [facility] FROM [facility] T:[phone] CLINICALS HAVE BEEN SENT PENDING AUTHORIZATION PATIENT REQUEST FOR NEW HOSPICE CARE HAI WILL FIND AN APPROVED HOSPICE AND GET BACK TO ME 03/15/19
--- NOTE | 2019-03-14 17:18 | General Progress Note ---
Assessment/Plan Problem List: (1) Leg edema ICD Codes: R60.0 - Localized edema SNOMED: 937838227 (2) Metastatic cancer ICD Codes: C79.9 - Secondary malignant neoplasm of unspecified site SNOMED: 529253254 (3) Hypercalcemia of malignancy ICD Codes: E83.52 - Hypercalcemia SNOMED: 36172173 (4) Metastatic breast cancer ICD Codes: C50.919 - Malignant neoplasm of unspecified site of unspecified female breast SNOMED: 669208660, 691875491 (5) Pain ICD Codes: R52 - Pain, unspecified SNOMED: 71931708 (6) Gait abnormality ICD Codes: R26.9 - Unspecified abnormalities of gait and mobility SNOMED: 77920785 Assessment/Plan: Venous duplex to rule out DVT physical therapy to assess case management seeing I think she was best suited to go to an ECF and will be on hospice Subjective Constitutional: Reports: weakness HEENT: Reports: no symptoms Cardiovascular: Reports: no symptoms Respiratory: Reports: no symptoms Gastrointestinal/Abdominal: Reports: no symptoms Genitourinary: Reports: no symptoms Neurologic/Psychiatric: Reports: weakness Endocrine: Reports: no symptoms Hematologic/Lymphatic: Reports: no symptoms Allergies: Coded Allergies: No Known Allergies (Unverified , 12/02/15) Subjective She is concerned about leg swelling her pain control seems much better Objective Last 24 Hour Vital Signs Date Time Temp Pulse Resp B/P (MAP) Pulse Ox O2 Delivery O2 Flow Rate FiO2 03/14/19 12:00 98.3 86 21 118/78 (91) 98 03/14/19 09:00 Nasal Cannula 2.0 03/14/19 08:00 97.8 86 20 134/82 (99) 97 03/14/19 04:00 99.2 88 17 107/62 (77) 97 03/14/19 00:21 Nasal Cannula 2.0 03/14/19 00:00 98.7 99 18 153/86 (108) 97 03/13/19 21:00 Nasal Cannula 2.0 03/13/19 20:00 97.0 99 16 116/67 (83) 97 Intake and Output 03/13/19 03/14/19 18:59 06:59 Intake Total 120 ml 480 ml Balance 120 ml 480 ml Intake Oral 120 ml 480 ml # Voids 1 1 Height (Feet): 5 Height (Inches): 6.00 Weight (Pounds): 190 General Appearance: no apparent distress, alert EENT: normal ENT inspection Neck: normal alignment Cardiovascular: normal rate Respiratory/Chest: lungs clear Abdomen: non tender, soft Extremities: no calf tenderness Edema: mild edema 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
--- NOTE | 2019-03-14 19:30 | NUR ---
HAND-OFF: Report given to Stanislav CACERES. Patient is stable.
[2019-03-14 20:00] VITALS: BP 113/75
--- NOTE | 2019-03-14 23:37 | NUR ---
NURSE NOTES: Patient in bed awake and oriented. VSS. No SOB noted. 9/10 generalized body pain. PRN pain medication given. Elevated bilateral legs. Needs attended. Bed is locked and in low position. Call light within reach. In stable condition.
[2019-03-15] MEDS: LORazepam 0.5mg tab ORAL PRN ×3 (01:56→19:32)
[2019-03-15 04:00] VITALS: BP 122/82
[2019-03-15] MEDS: Morphine IR 15mg tab ORAL PRN ×6 (04:57→23:14)
--- NOTE | 2019-03-15 07:57 | NUR ---
NURSE NOTES: Received pt in bed, AAO x4. No c/o of distress. c/o of pain. IV on R hand 20g intact and patent, with saline lock. Bilateral legs elevated. Side rails x 2. Bed is in the lowest, locked, and alarm on. Call light within reach. Will continue to monitor
[2019-03-15] MEDS: Ziprasidone 20mg cap ORAL SCH ×2 (08:47→18:07)
[2019-03-15] MEDS: MS Contin 100mg tab ORAL SCH ×2 (08:47→20:15)
[2019-03-15] MEDS: Docusate 100mg cap ORAL SCH ×2 (08:47→20:15)
[2019-03-15] MEDS: Heparin 5000 units/ml inj SUBQ SCH ×2 (08:51→20:38)
[2019-03-15] MEDS: Miralax 17gm pkt ORAL SCH ×2 (08:51→18:00)
[2019-03-15] MEDS: Anastrazole 1mg tab ORAL SCH (08:52)
[2019-03-15] MEDS: guaiFENesin w/Codeine 5ml Liq ud ORAL PRN ×2 (09:07→18:07)
--- NOTE | 2019-03-15 10:09 | NUR ---
*-* INSURANCE *-* ALL CLINICALS AND REVIEWS HAVE BEEN FAXED TO: Tracking#[id number] CM: Rico #[phone]
--- NOTE | 2019-03-15 10:15 | NUR ---
CASE MANAGEMENT:REVIEW 03/15/19 SI: LEG PAIN; GAIT ABNORMALITY 97.5 82 19 122/82 99% NC 2L IS: ARIMIDEX PO QD PROTONIX PO AC MS CONTIN PO Q12HR MORPHINE PO Q3HR/PRN HEPARIN SQ Q12HR GEODON PO BID ROBITUSSIN PO Q6/PRN : 3E MS UNIT DCP: VENOUS DUPLEX PLACEMENT NEEDED
[2019-03-15] MEDS ORDERED: Morphine IR 15mg tab ORAL SCH (10:54)
[2019-03-15 12:00] VITALS: BP 127/75
--- NOTE | 2019-03-15 12:38 | NUR ---
NURSE NOTES: Patient was yelling and complaining of pain on her chest area and upper back even after getting the PRN morphine 30 mg and scheduled morphine 100 mg @ 9am. Called dr. Louie and got order to give 30 mg morphine x1 and 45 mg morphine PRN for breakthrough pain.
--- NOTE | 2019-03-15 12:59 | General Progress Note ---
Assessment/Plan Problem List: (1) Leg edema ICD Codes: R60.0 - Localized edema SNOMED: 228866217 (2) Metastatic cancer ICD Codes: C79.9 - Secondary malignant neoplasm of unspecified site SNOMED: 464165463 (3) Hypercalcemia of malignancy ICD Codes: E83.52 - Hypercalcemia SNOMED: 61365910 (4) Metastatic breast cancer ICD Codes: C50.919 - Malignant neoplasm of unspecified site of unspecified female breast SNOMED: 142350142, 426858850 (5) Pain ICD Codes: R52 - Pain, unspecified SNOMED: 05095861 (6) Gait abnormality ICD Codes: R26.9 - Unspecified abnormalities of gait and mobility SNOMED: 89710871 Assessment/Plan: Venous duplex to rule out DVT negative physical therapy to assess case management seeing I think she was best suited to go to an ECF and will be on hospice she asked for more pain medicines today as she had breakthrough pain and morphine immediate release was increased from 30 to 45 mg every 3 hours as needed Subjective Constitutional: Reports: weakness HEENT: Reports: no symptoms Cardiovascular: Reports: no symptoms Respiratory: Reports: no symptoms Gastrointestinal/Abdominal: Reports: no symptoms Neurologic/Psychiatric: Reports: pre-existing deficit Endocrine: Reports: no symptoms Hematologic/Lymphatic: Reports: anemia Allergies: Coded Allergies: No Known Allergies (Unverified , 12/02/15) Subjective She is concerned about leg swelling her pain control seems much better Objective Last 24 Hour Vital Signs Date Time Temp Pulse Resp B/P (MAP) Pulse Ox O2 Delivery O2 Flow Rate FiO2 03/15/19 12:00 98.5 100 19 127/75 (92) 97 03/15/19 09:00 Nasal Cannula 2.0 03/15/19 04:00 97.5 82 19 122/82 (95) 99 03/14/19 21:00 Nasal Cannula 2.0 03/14/19 20:00 98.3 85 20 113/75 (88) 97 03/14/19 16:00 98.1 89 20 121/78 (92) 98 Intake and Output 03/14/19 03/15/19 19:00 07:00 Intake Total 600 ml Balance 600 ml Intake Oral 600 ml # Voids 2 3 Height (Feet): 5 Height (Inches): 6.00 Weight (Pounds): 190 General Appearance: no apparent distress EENT: normal ENT inspection Neck: normal alignment Cardiovascular: normal rate Respiratory/Chest: lungs clear, normal breath sounds Extremities: other - Mild edema 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
[2019-03-15 16:00] VITALS: BP 131/76
--- NOTE | 2019-03-15 19:30 | NUR ---
HAND-OFF: Report given to NICKI Christian.
--- NOTE | 2019-03-15 19:30 | NUR ---
NURSE NOTES: received report from NICKI Anglin. Patient is in bed supported by pillows with warm compresses applied to the inner thighs and perineal area. Patient is yelling out and crying c/o pain 10/10. Medication given per eMAR. Nasal Canula running 2L oxygen with no c/o SOB. Lidocaine patches applied to lower right flank and upper left back. Right hand 20G IV saline locked asymptomatic and intact. Patient is alert and oriented x4, 2 side rails up, bed in low and locked position with call light within reach. Will continue to monitor.
[2019-03-15 20:00] VITALS: BP 132/72
[2019-03-16] VITALS: BP 153/97
[2019-03-16] MEDS: guaiFENesin w/Codeine 5ml Liq ud ORAL PRN ×4 (00:11→20:35)
--- NOTE | 2019-03-16 02:18 | NUR ---
NURSE NOTES: Patient consistently reporting pain level 10/10 of posterior back, anterior pelvis and left leg. Utilized warm compresses, talk therapy, pillow support bilaterally for both legs and arms, television, hot beverages, distraction and relaxation techniques. Medication given PRN per eMAR for breakthrough severe pain >7/10. Patient c/o insomnia and constipation. Medication given PRN per eMAR.
[2019-03-16] MEDS: Morphine IR 15mg tab ORAL PRN ×5 (03:18→21:57)
[2019-03-16 04:00] VITALS: BP 139/92
--- NOTE | 2019-03-16 07:45 | NUR ---
HAND-OFF: Report given to NICKI Martinez. Patient in stable condition.
--- NOTE | 2019-03-16 07:56 | NUR ---
NURSE NOTES: AWAKE/ALERT. PAIN SCALE 9/10. 02 2L N/C. NO ACUTE SOB. IN NO DISTRESS.
[2019-03-16 08:00] VITALS: BP 135/82
[2019-03-16] MEDS: Ziprasidone 20mg cap ORAL SCH ×2 (08:28→17:25)
[2019-03-16] MEDS: MS Contin 100mg tab ORAL SCH ×2 (08:28→20:35)
[2019-03-16] MEDS: Anastrazole 1mg tab ORAL SCH (08:28)
[2019-03-16] MEDS: Docusate 100mg cap ORAL SCH ×2 (08:28→20:35)
[2019-03-16] MEDS: Miralax 17gm pkt ORAL SCH ×2 (08:33→17:25)
[2019-03-16] MEDS: Heparin 5000 units/ml inj SUBQ SCH ×2 (08:35→20:40)
[2019-03-16 12:00] VITALS: BP 127/75
--- NOTE | 2019-03-16 12:10 | NUR ---
CASE MANAGEMENT:REVIEW 03/16/19 SI: LEG PAIN; GAIT ABNORMALITY 98.1 86 20 135/82 97% NC 2L IS: ARIMIDEX PO QD PROTONIX PO AC MS CONTIN PO Q12HR MORPHINE PO Q3HR/PRN HEPARIN SQ Q12HR GEODON PO BID ROBITUSSIN PO Q6/PRN AMBIEN PO HS/PRN ROBITUSSIN PO Q6/HR LIDOCAINE TD Q8/PRN ATIVAN PO Q8/PRN SENOKOT PO QD/PRN : 3E MS UNIT DCP: VENOUS DUPLEX= NEG SNF PLACEMENT WITH HOSPICE
--- NOTE | 2019-03-16 12:16 | NUR ---
DISCHARGE PLAN: SNF WITH HOSPICE PLACEMENT [facility] WILL DO A BEDSIDE EVALUATION ON PATIENT TODAY @ 1400 T:[phone] Addendum: 03/16/19 at 1628 by MENDEZ NAVAS LVN MAY ALSO CONTACT SHERRY FROM [facility] T: [phone] Addendum: 03/18/19 at 1250 by MENDEZ NAVAS LVN DISCHARGE PLAN: PLACEMENT LIST ACTIVELY LOOKING FOR FACILITY PLACEMENT WITH HOSPICE ATTEMPTED TO CONTACT 1# [facility] T:[phone] F:[phone] 2# [facility] T: [phone] F:[phone] 3# [facility] T:[phone] F:[phone] 4#[facility] T:[phone] F:[phone] 5# DENISE [facility] T:[phone] F:[phone] 6#[facility] T:[phone] F:[phone] 7#[facility] T:[phone] F:[phone] 8# [facility] [place] T:[phone] F:[phone] 9#[facility] T:[phone] F:[phone] 10# [facility] T:[phone] F:[phone] Addendum: 03/18/19 at 1444 by MENDEZ NAVAS LVN DISCHARGE PLAN: [facility] WAS CONTACTED FOR ASSISTANCE WITH PLACEMENT PATIENT HOSPICE HAS BEEN UNSUCCESSFUL WITH PLACEMENT AND HAS ASKED FOR ASSISTANCE
[2019-03-16 16:00] VITALS: BP 121/80
--- NOTE | 2019-03-16 18:26 | General Progress Note ---
Assessment/Plan Problem List: (1) Leg edema ICD Codes: R60.0 - Localized edema SNOMED: 123296357 (2) Metastatic cancer ICD Codes: C79.9 - Secondary malignant neoplasm of unspecified site SNOMED: 984614577 (3) Hypercalcemia of malignancy ICD Codes: E83.52 - Hypercalcemia SNOMED: 20292129 (4) Metastatic breast cancer ICD Codes: C50.919 - Malignant neoplasm of unspecified site of unspecified female breast SNOMED: 542061174, 385309363 (5) Pain ICD Codes: R52 - Pain, unspecified SNOMED: 03805929 (6) Gait abnormality ICD Codes: R26.9 - Unspecified abnormalities of gait and mobility SNOMED: 51393389 Assessment/Plan: Venous duplex to rule out DVT negative physical therapy to assess case management seeing I think she was best suited to go to an ECF and will be on hospice she asked for more pain medicines 03/15 as she had breakthrough pain and morphine immediate release was increased from 30 to 45 mg every 3 hours as needed Subjective Constitutional: Reports: weakness HEENT: Reports: no symptoms Cardiovascular: Reports: no symptoms Respiratory: Reports: no symptoms Gastrointestinal/Abdominal: Reports: no symptoms Genitourinary: Reports: no symptoms Neurologic/Psychiatric: Reports: weakness Endocrine: Reports: no symptoms Hematologic/Lymphatic: Reports: anemia Allergies: Coded Allergies: No Known Allergies (Unverified , 12/02/15) Subjective She is concerned about leg swelling her pain control seems much better Objective Last 24 Hour Vital Signs Date Time Temp Pulse Resp B/P (MAP) Pulse Ox O2 Delivery O2 Flow Rate FiO2 03/16/19 16:00 97.9 90 20 121/80 (94) 97 03/16/19 15:04 98.2 03/16/19 12:00 98.2 81 20 127/75 (92) 97 03/16/19 11:50 98.1 03/16/19 09:27 98.1 03/16/19 09:00 Nasal Cannula 2.0 03/16/19 08:00 98.1 86 20 135/82 (99) 97 03/16/19 04:00 98.4 87 15 139/92 (108) 99 03/16/19 00:00 98.3 93 18 153/97 (115) 99 03/15/19 21:00 Nasal Cannula 2.0 03/15/19 20:00 97.8 62 18 132/72 (92) 98 Intake and Output 03/15/19 03/16/19 19:00 07:00 Intake Total 720 ml 480 ml Balance 720 ml 480 ml Intake Oral 720 ml 480 ml # Voids 4 3 Height (Feet): 5 Height (Inches): 6.00 Weight (Pounds): 189 General Appearance: alert EENT: normal ENT inspection Neck: normal alignment Cardiovascular: normal rate Respiratory/Chest: lungs clear Abdomen: non tender, soft Edema: 1+ Leg (L), 1+ Leg (R) 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
--- NOTE | 2019-03-16 18:58 | NUR ---
HAND-OFF: Report given to АЛЕКСАНДРU RN.
--- NOTE | 2019-03-16 18:59 | NUR ---
NURSE NOTES: RESTING IN BED. IN NO APPARENT DISTRESS.
--- NOTE | 2019-03-16 19:58 | NUR ---
NURSE NOTES: Received report from NICKI Martinez. Patient awake and verbally responsive to let her needs known. Patient breathing unlabored without distress, discomfort, or sob on 2L O2 via NC. Patient verbalizes chronic pain on the left leg. IV noted on right hand intact and patent. Bedside commode noted. Patient able to move to bedside commode with staff assistance. Bed placed at the lowest with alarm, brake, and siderails up for safety. Call light placed within reach. Will continue to monitor and provide care as ordered.
[2019-03-16 20:00] VITALS: BP 120/76
--- NOTE | 2019-03-16 23:26 | Diagnostic Imaging Report ---
APPROVED REPORT CPT Code: 11605 Present Symptoms Comments: BILATERAL LEGS PAIN. BILATERAL: Imaging reveals a patent deep venous system bilaterally. There is no evidence of thrombus within the femoral, popliteal or tibial segments. The greater saphenous veins are also within normal limits. Doppler indicates normal spontaneous flow within these segments.
[2019-03-17] MEDS: Morphine IR 15mg tab ORAL PRN ×5 (01:12→22:28)
[2019-03-17] MEDS: guaiFENesin w/Codeine 5ml Liq ud ORAL PRN ×2 (02:27→20:30)
[2019-03-17 04:00] VITALS: BP 113/74
--- NOTE | 2019-03-17 04:54 | NUR ---
NURSE NOTES: Patient verbalized constant pain. Provided pain management with PRN prescribed pain medications and non-pharmacological interventions of warm pack, talk therapy, distraction, positional change, pillow support, and encouraging rest. Will continue to monitor and provide care as ordered.
--- NOTE | 2019-03-17 06:43 | NUR ---
NURSE NOTES: Previous IV site leaking and tender when flushing. Patient refused placing another IV and requested the existing IV to be removed. Patient wanted IV to be inserted after her next dose of breakthrough pain medication. Informed charge nurse regarding the situation. Will endorse it to the AM shift.
--- NOTE | 2019-03-17 07:24 | NUR ---
HAND-OFF: Report given to NICKI Tirado. Informed about the IV.
--- NOTE | 2019-03-17 07:29 | NUR ---
NURSE NOTES: Pt wheeling self in hallway yelling requesting pain medication during report, hand off report not done. " It is psychological" Pt redirected " i can not help it"
[2019-03-17 08:00] VITALS: BP 115/74
[2019-03-17] MEDS: Ziprasidone 20mg cap ORAL SCH ×2 (08:43→18:00)
[2019-03-17] MEDS: Docusate 100mg cap ORAL SCH ×2 (08:43→20:31)
[2019-03-17] MEDS: MS Contin 100mg tab ORAL SCH ×2 (08:45→20:31)
[2019-03-17] MEDS: Heparin 5000 units/ml inj SUBQ SCH ×2 (08:46→20:32)
[2019-03-17] MEDS: Miralax 17gm pkt ORAL SCH ×2 (09:00→18:00)
[2019-03-17] MEDS: Anastrazole 1mg tab ORAL SCH (09:00)
--- NOTE | 2019-03-17 11:59 | NUR ---
CASE MANAGEMENT:REVIEW 03/16/19 SI: LEG EDEMA; METASTATIC BREAST CA; 98.3 89 20 115/74 93% NC 2L IS: MS CONTIN PO Q12HR MORPHINE PO Q4HR/PRN PROTONIX PO AC ARIMIDEX PO QD HEPARIN SQ Q12HR GEODON PO BID AMBIEN PO HS/PRN ROBITUSSIN PO Q6/HR LIDOCAINE TD Q8/PRN ATIVAN PO Q8/PRN SENOKOT PO QD/PRN : 3E MS UNIT DCP: VENOUS DUPLEX= NEG SNF PLACEMENT WITH HOSPICE
[2019-03-17 12:00] VITALS: BP 144/89
--- NOTE | 2019-03-17 12:04 | NUR ---
NURSE NOTES: Pt requires repeated redirection for outburst , Does not have a clear perception of time. Citizen Participation Specialist recently administered that was a long time ago" " I need drugs" Pt encouraged to use non pharmacological interventions. " I just dont want to feel anything" Pt informed that the CA is metastasized, and the goal to have a zero on pain scale 1/10 probably will not be reached. " I can not walk , I can not do anything" Pt encouraged with her current abilities. Provided with assistance with restroom needs, pt had a BM. Call light is in reach
--- NOTE | 2019-03-17 12:18 | General Progress Note ---
Assessment/Plan Problem List: (1) Leg edema ICD Codes: R60.0 - Localized edema SNOMED: 863910028 (2) Metastatic cancer ICD Codes: C79.9 - Secondary malignant neoplasm of unspecified site SNOMED: 193298212 (3) Hypercalcemia of malignancy ICD Codes: E83.52 - Hypercalcemia SNOMED: 16393715 (4) Metastatic breast cancer ICD Codes: C50.919 - Malignant neoplasm of unspecified site of unspecified female breast SNOMED: 043488464, 841198492 (5) Pain ICD Codes: R52 - Pain, unspecified SNOMED: 59093747 (6) Gait abnormality ICD Codes: R26.9 - Unspecified abnormalities of gait and mobility SNOMED: 37261085 Assessment/Plan: Venous duplex to rule out DVT negative physical therapy to assess case management seeing I think she was best suited to go to an ECF and will be on hospice she asked for more pain medicines 03/15 as she had breakthrough pain and morphine immediate release was increased from 30 to 45 mg every 3 hours as needed--less pain now Subjective Constitutional: Reports: weakness HEENT: Reports: no symptoms Cardiovascular: Reports: no symptoms Respiratory: Reports: no symptoms Gastrointestinal/Abdominal: Reports: no symptoms Genitourinary: Reports: no symptoms Neurologic/Psychiatric: Reports: pre-existing deficit Endocrine: Reports: no symptoms Hematologic/Lymphatic: Reports: anemia Allergies: Coded Allergies: No Known Allergies (Unverified , 12/02/15) Subjective She is concerned about leg swelling her pain control seems much better Objective Last 24 Hour Vital Signs Date Time Temp Pulse Resp B/P (MAP) Pulse Ox O2 Delivery O2 Flow Rate FiO2 03/17/19 09:00 Room Air 03/17/19 08:00 98.3 89 20 115/74 (88) 93 03/17/19 04:00 98.3 88 20 113/74 (87) 98 03/16/19 21:00 Nasal Cannula 2.0 03/16/19 20:00 98.7 95 20 120/76 (91) 98 03/16/19 16:00 97.9 90 20 121/80 (94) 97 03/16/19 15:04 98.2 Intake and Output 03/16/19 03/17/19 18:59 06:59 Intake Total 850 ml 800 ml Balance 850 ml 800 ml Intake Oral 850 ml 800 ml # Voids 1 4 Height (Feet): 5 Height (Inches): 6.00 Weight (Pounds): 189 General Appearance: no apparent distress EENT: normal ENT inspection Neck: normal alignment Cardiovascular: normal rate, regular rhythm Respiratory/Chest: lungs clear Extremities: no calf tenderness Edema: mild edema 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
--- NOTE | 2019-03-17 12:42 | NUR ---
NURSE NOTES: Pt in [facility] yelling for Robitussin with codeine. Pt has not coughed since start of shift. " I want something else " Pt began coughing spontaneously , now I am coughing I am coughing!" Well give me Ativan , pt begins scratching her head,, I need drugs I need them , and you are not giving them to me" " I want it , because I want it my mind says I need it" Pt informed that the pain medication is given for pain , " It cut the edge off" Marketing Mgr called
[2019-03-17] MEDS: LORazepam 0.5mg tab ORAL PRN (13:02)
--- NOTE | 2019-03-17 15:08 | NUR ---
*-* INSURANCE *-* ALL CLINICALS AND REVIEWS HAVE BEEN FAXED TO: Tracking#[id number] CM: Rico #[phone]
--- NOTE | 2019-03-17 16:53 | NUR ---
NURSE NOTES: Pt seen by [facility] did not accept pt
--- NOTE | 2019-03-17 17:58 | NUR ---
NURSE NOTES: Upon this writing pt is sleeping
--- NOTE | 2019-03-17 19:30 | NUR ---
NURSE NOTES: RECEIVED PATIENT RESTING IN BED, C/O PAIN IN LEGS01/08. WILL MEDICATE FOR PAIN ORDERED. FALL PRECAUTIONS IN PLACE: CALL LIGHT, BEDSIDE TABLE, WALKER, WHEELCHAIR AND COMMODE WITHIN REACH, BED IN LOW POSITION AND BED ALARM ON. PLAN OF CARE REVIEWED.
[2019-03-17 20:00] VITALS: BP 136/76
--- NOTE | 2019-03-17 20:03 | NUR ---
HAND-OFF: Report given to Bertha CACERES made aware of orders given by Dr Otero at 1915. Gave orders for ultrasound guided thoracentisis to rt chest, c/s to fluids, ldh, chemistry , cell count, cytology, He also gave orders for INR LDH BNP. Addendum: 03/17/19 at 2006 by Candida Vaughn RN error in entry wrong pt
--- NOTE | 2019-03-17 20:06 | NUR ---
HAND-OFF: Report given to Made aware that pt refused IV line has not had line since previous shift, informed that hospice seen pt and was npot accepted. Informed of pt disruptive bx.
[2019-03-18] VITALS: BP 134/77
[2019-03-18] MEDS: LORazepam 0.5mg tab ORAL PRN ×2 (00:04→10:04)
[2019-03-18] MEDS: Morphine IR 15mg tab ORAL PRN ×4 (02:11→16:11)
[2019-03-18 04:00] VITALS: BP 114/63
[2019-03-18] MEDS: guaiFENesin w/Codeine 5ml Liq ud ORAL PRN (06:29)
--- NOTE | 2019-03-18 07:23 | NUR ---
NURSE NOTES: ASLEEP. NO SOB. IN NO APPARENT DISCOMFORT.
--- NOTE | 2019-03-18 07:42 | NUR ---
HAND-OFF: Report given to Manuel CHAUHAN RN. PATIENT RESTING IN BED, NO SIGNS OF DISTRESS NOTED.
[2019-03-18 08:00] VITALS: BP 113/64
[2019-03-18] MEDS: Heparin 5000 units/ml inj SUBQ SCH (08:31)
[2019-03-18] MEDS: Ziprasidone 20mg cap ORAL SCH (08:31)
[2019-03-18] MEDS: MS Contin 100mg tab ORAL SCH (08:31)
[2019-03-18] MEDS: Docusate 100mg cap ORAL SCH (08:31)
[2019-03-18] MEDS: Miralax 17gm pkt ORAL SCH (08:32)
[2019-03-18] MEDS: Anastrazole 1mg tab ORAL SCH (08:32)
--- NOTE | 2019-03-18 10:14 | Nephrology Progress Note ---
Assessment/Plan Assessment/Plan: A/P (1) Leg edema - Localized edema (2) Metastatic cancer Secondary malignant neoplasm of unspecified site (3) Hypercalcemia of malignancy Hypercalcemia (4) Metastatic breast cancer Malignant neoplasm of unspecified site of unspecified female breast (5) Pain (6) Gait abnormalityUnspecified abnormalities of gait and mobility Awaiting placement Subjective Date patient seen: Mar 18, 2019 Time patient seen: 10:10 ROS Limited/Unobtainable: No Allergies: Coded Allergies: No Known Allergies (Unverified , 12/02/15) Subjective Patient in no distress Objective Last 24 Hour Vital Signs Date Time Temp Pulse Resp B/P (MAP) Pulse Ox O2 Delivery O2 Flow Rate FiO2 03/18/19 09:30 97.1 03/18/19 09:02 Room Air 03/18/19 08:00 98.2 86 20 113/64 (80) 93 03/18/19 04:00 97.1 81 18 114/63 (80) 94 03/18/19 00:00 98.6 81 20 134/77 (96) 94 03/17/19 21:00 Room Air 03/17/19 20:00 98.4 104 18 136/76 (96) 94 03/17/19 12:00 98.1 87 18 144/89 (107) Intake and Output 03/17/19 03/18/19 18:59 06:59 Intake Total 240 ml 240 ml Balance 240 ml 240 ml Intake Oral 240 ml 240 ml # Voids 1 3 Height (Feet): 5 Height (Inches): 6.00 Weight (Pounds): 189 General Appearance: no apparent distress EENT: normal ENT inspection Neck: normal alignment, supple Cardiovascular: normal rate, regular rhythm Respiratory/Chest: lungs clear, normal breath sounds Abdomen: non tender, soft Edema: no edema noted Arm (L), no edema noted Arm (R), no edema noted Leg (L), no edema noted Leg (R), no edema noted Pedal (L), no edema noted Pedal (R), no edema noted Generalized Israel Mayers MD Mar 18, 2019 10:14
[2019-03-18] MEDS ORDERED: guaiFENesin w/Codeine 5ml Liq ud ORAL PRN (10:30)
--- NOTE | 2019-03-18 11:20 | NUR ---
CASE MANAGEMENT:REVIEW 03/18/19 SI: LEG EDEMA; METASTATIC BREAST CA; 98.2 86 20 113/93 93% RA IS: MS CONTIN PO Q12HR MORPHINE PO Q4HR/PRN MORPHINE PO Q3HR/PRN PROTONIX PO AC ARIMIDEX PO QD HEPARIN SQ Q12HR GEODON PO BID AMBIEN PO HS/PRN ROBITUSSIN PO Q4/PRN LIDOCAINE TD Q8/PRN ATIVAN PO Q8/PRN SENOKOT PO QD/PRN : 3E MS UNIT DCP:SNF PLACEMENT WITH HOSPICE
[2019-03-18 12:00] VITALS: BP 123/76
--- NOTE | 2019-03-18 13:38 | NUR ---
RD ASSESSMENT & RECOMMENDATIONS SEE CARE ACTIVITY FOR COMPLETE ASSESSMENT DAILY ESTIMATED NEEDS: Needs based on Cancer 62.7 25-30 kcals/kg 9304-2886 total kcals 1-2 g protein/kg 63-125 g total protein 25-30 mL/kg 6287-3312 total fluid mLs NUTRITION DIAGNOSIS: Increased kcal and pro needs r/t cancer as evidenced by pt w/ mets breast cancer. PO DIET RECOMMENDATIONS: maintain Regular diet ADDITIONAL RECOMMENDATIONS: 1) Add Ensure BID in b/w meals w/ continued variable to fair po intake 2) Updated labs as able 3) Add snacks in b/w meals 4) Obtain a calibrated bed scale wt
--- NOTE | 2019-03-18 15:18 | NUR ---
*-* INSURANCE *-* ALL CLINICALS AND REVIEWS HAVE BEEN FAXED TO: Tracking#[id number] CM: Rico #[phone]
--- NOTE | 2019-03-18 15:59 | NUR ---
DISCHARGED PLANNED: DISCUSSED DISCHARGE WITH HOSPICE NURSE MICHELLE T:[phone] MICHELLE WILL DISCUSS DISCHARGE WITH PATIENT AT BEDSIDE PATIENT HAS BEEN ACCEPTED TO [facility] T:[phone] FOR NURSE TO NURSE REPORT HOSPICE HAS SET UP TRANSPORTATION [facility] HAS BEEN ARRANGED FOR 420PM INCOME TAX CONSULTANT TIME T: [phone]
[2019-03-18 16:00] VITALS: BP 134/86
[2019-03-18] MEDS ORDERED: AMBIEN5 MG ORAL (16:29)
[2019-03-18] MEDS ORDERED: MIRALAX17 G2 ORAL (16:30)
[2019-03-18] MEDS ORDERED: COLACE100 MG ORAL (16:31)
[2019-03-18] MEDS ORDERED: GUAIFENESIN-CO118 M1 ORAL (16:32)
[2019-03-18] MEDS ORDERED: ACETAMINOPHEN325 M1 ORAL ×2 (16:33→16:34)
--- NOTE | 2019-03-18 16:57 | NUR ---
NURSE NOTES: DISCHARGE TO [facility] IN STABLE CONDITION. TRANSFER PAPERS AND ORDERS SENT WITH.PT.
--- NOTE | 2019-03-18 18:01 | NUR ---
NURSE NOTES: REPORT GIVEN TO GIAN CACERES.
--- NOTE | 2019-03-19 22:29 | Discharge Summary ---
Discharge Summary Discharge Summary _ DATE OF ADMISSION: 03/13/2019 DATE OF DISCHARGE: 03/18/2019 ADMITTING MD: Dr. Iván Louie DISCHARGED BY: Dr. Israel Mayers BRIEF HOSPITAL COURSE: Patient is a 58-year-old -[place] female with known metastatic breast cancer and bipolar disease, was admitted due to generalized pain, difficulty walking and unable to care for self. Patient was admitted on 03/06/2019 with uncontrolled pain, suicidal ideation due to uncontrolled pain. Her pain was controlled by resuming her opiates and had some mild hyperkalemia up to 11 and received a dose of Aredia. At that time, she ended up going home. She was recommended to be discharged to a [place] [facility] facility and follow-up with hospice program. Patient cannot function at home. She cannot move her left leg. Because of that, she presented back to the emergency room. Upon evaluation at the ED, vital signs were stable. Blood work was stable. Patient did not display any psychiatric behavior. She is unable to walk. Patient has poor social network and does not have support system. Patient unable to be discharged safely at home. Patient was then admitted for pain management as well as social care disposition. She was given pain management. Venous duplex ruled out acute DVT. She was given physical therapy. automotive worker foreman consulted. Placement was secured. Hospice and transportation was arranged. Patient was eventually discharged to an ECF. FINAL DIAGNOSES: Metastatic breast cancer Hypercalcemia of malignancy Leg edema Gait abnormality Pain DISPOSITION: DC to SNF with hospice to follow DISCHARGE MEDICATIONS: Refer to Discharge Medication List. I have been assigned to complete a discharge summary on this account, I was not involved with the patient's management.--FRANCO Martell Jacqueline Robles NP Mar 19, 2019 22:29
--- NOTE | 2019-03-21 16:47 | NUR ---
*-* INSURANCE *-* DISCHARGE SUMMARY HAS BEEN FAXED TO: Tracking#[id number] CM: Rico #[phone]
== END 2019-03-18 16:55 | disposition hospice, inpatient (51) | DRG 861 ==
LOC: EDBD 02:33 → EMR 02:47 → 3E 04:15 → EDBEDREQ 09:02 → 3E 10:30
DX: G89.3 Neoplasm related pain (acute) (chronic) (principal); C79.51 Secondary malignant neoplasm of bone; Z85.3 Personal history of malignant neoplasm of breast; R60.0 Localized edema; E83.52 Hypercalcemia; C78.7 Secondary malignant neoplasm of liver and intrahepatic bile duct; Z90.13 Acquired absence of bilateral breasts and nipples; F31.9 Bipolar disorder, unspecified; R26.2 Difficulty in walking, not elsewhere classified
CPT/HCPCS: 36415; 80053; 81003; 85025; 87081; 93970; 99285

== ENCOUNTER 2019-04-17 11:45 | Emergency (ER) | payer OTHER ==
[~2019-04-17] VITALS: Ht 162.6 cm; Wt 80.7 kg
[~2019-04-17 11:45] MED LIST changes: +ACETAMINOPHEN325 M1 ORAL; +AMBIEN5 MG ORAL; +COLACE100 MG ORAL; +FENTANYL1 EAC4 TDERMAL; +MIRALAX17 G2 ORAL; +OXYCODONE-ACET1 EAC3 ORAL
--- NOTE | 2019-04-17 11:45 | NUR ---
ED Nurse Note: Patient brought in by RA from home c/o substernal chest pain with an onset of about a week, rates her pain a 8/10 pain. patient is alert and oriented x4, patient denies any nausea or vomiting, IV placed on patients left forearm 20 gauge, patient placed on a manufacturing process technician, bed at lowest position. will wait for further orders
[2019-04-17 11:50] VITALS: BP 133/89
--- NOTE | 2019-04-17 11:56 | Emergency Room Report ---
History of Present Illness General Chief Complaint: To Be Triaged Source: Patient, EMS Present Illness HPI Patient presents with left-sided chest pain for 1 week.. She says it is stabbing. It is somewhat pleuritic also. She is been taking Reynolds with some relief. She rates the pain 10/10 with some radiation towards her back on the left-hand side. She is been admitted in the past and had acute coronary syndrome excluded. The patient has a history of metastatic breast cancer to bone. She denies leg edema or calf pain. She denies productive cough, fever, chills or wheezing. She has chronic bone pain from metastatic breast cancer to bone. She walks with a walker. Patient also has not moved her bowels for 1 week. She has a history of bipolar disorder. She feels anxious but denies suicidal ideation at this time. No sore throat, palpitations, nausea, vomiting, diarrhea, dysuria, abdominal pain, shortness of breath, rashes, depression, visual changes, dizziness, headache. Allergies: Coded Allergies: No Known Allergies (Unverified , 12/02/15) Patient History Past Medical History: see triage record Past Surgical History: other - Port-A-Cath Social History: Reports: alcohol use Social History Narrative From home Reviewed Nursing Documentation: PMH: Agreed; PSxH: Agreed Nursing Documentation-PMH Past Medical History: No History, Except For Hx Asthma: Yes Hx Cancer: Yes Hx Gastrointestinal Problems: No Hx Neurological Problems: No Review of Systems All Other Systems: negative except mentioned in HPI Physical Exam Vital Signs Date Time Temp Pulse Resp B/P (MAP) Pulse Ox O2 Delivery O2 Flow Rate FiO2 04/17/19 11:40 97.3 103 18 133/89 (104) 98 Room Air Sp02 EP Interpretation: reviewed, normal General Appearance: no apparent distress, Chronically Ill Eyes: bilateral eye PERRL, bilateral eye conjunctivae pale ENT: moist mucus membranes Medical Decision Making Diagnostic Impression: Primary Impression: Chest pain Qualified Codes: R07.9 - Chest pain, unspecified Additional Impressions: Constipation Qualified Codes: K59.03 - Drug induced constipation UTI (urinary tract infection) Qualified Codes: N30.00 - Acute cystitis without hematuria Metastatic breast cancer ER Course Patient presents with left-sided chest pain that is atypical in its history with a history of metastatic breast cancer. Differential includes acute myocardial infarction, pulmonary embolus, exacerbation of pain from bony metastasis, constipation, pneumonia amongst others. Clinically the patient does not have pneumonia or pulmonary embolus. Evaluation with EKG, chest x-ray , abdominal film and labs. The patient will be treated with IV hydration, Reglan, Benadryl. In addition the patient is given a dose of aspirin. EKG no injury. Chest x-ray with bony metastasis and Port-A-Cath without infiltrates with poor inspiration. Abdominal film with nonspecific gas pattern and increased stool load. Labs remarkabl for normal white count,e anemia, elevated liver function tests, positive tox screen for opiate opiates and pyuria. Patient given a dose of Rocephin. Patient was improved after Reglan and Benadryl. She still had pain. She requested more pain medicine. Discussed I could not give narcotics to her as it would further worsen the constipation. I discussed that she has a UTI. Ketamine administered. Patient improved after ketamine. No cardiac disease at this time. Patient stable for outpatient observation and treatment. Laboratory Tests Test 04/17/19 11:50 White Blood Count 7.1 K/UL (4.8-10.8) Red Blood Count 4.18 M/UL (4.20-5.40) L Hemoglobin 9.9 G/DL (12.0-16.0) L Hematocrit 32.1 % (37.0-47.0) L Mean Corpuscular Volume 77 FL (80-99) L Mean Corpuscular Hemoglobin 23.6 PG (27.0-31.0) L Mean Corpuscular Hemoglobin Concent 30.8 G/DL (32.0-36.0) L Red Cell Distribution Width 15.0 % (11.6-14.8) H Platelet Count 327 K/UL (150-450) Mean Platelet Volume 4.6 FL (6.5-10.1) L Neutrophils (%) (Auto) 63.7 % (45.0-75.0) Lymphocytes (%) (Auto) 28.2 % (20.0-45.0) Monocytes (%) (Auto) 6.1 % (1.0-10.0) Eosinophils (%) (Auto) 1.0 % (0.0-3.0) Basophils (%) (Auto) 1.0 % (0.0-2.0) Prothrombin Time 11.7 SEC (9.30-11.50) H Prothrombin Time INR 1.1 (0.9-1.1) PTT 28 SEC (23-33) Urine Color Yellow Urine Appearance Clear Urine pH 7 (4.5-8.0) Urine Specific [place] 1.010 (1.005-1.035) Urine Protein Negative (NEGATIVE) Urine Glucose (UA) Negative (NEGATIVE) Urine Ketones Negative (NEGATIVE) Urine Blood 1+ (NEGATIVE) H Urine Nitrite Negative (NEGATIVE) Urine Bilirubin Negative (NEGATIVE) Urine Urobilinogen 4 MG/DL (0.0-1.0) H Urine Leukocyte Esterase 3+ (NEGATIVE) H Urine RBC 0-2 /HPF (0 - 2) Urine WBC 10-15 /HPF (0 - 2) H Urine Squamous Epithelial Cells Few /LPF (NONE/OCC) Urine Bacteria Few /HPF (NONE) Sodium Level 141 MMOL/L (136-145) Potassium Level 3.6 MMOL/L (3.5-5.1) Chloride Level 100 MMOL/L (98-107) Carbon Dioxide Level 30 MMOL/L (21-32) Anion Gap 11 mmol/L (5-15) Blood Urea Nitrogen 8 mg/dL (7-18) Creatinine 0.9 MG/DL (0.55-1.30) Estimate Glomerular Filtration Rate > 60 mL/min (>60) Glucose Level 115 MG/DL (74-106) H Calcium Level 10.1 MG/DL (8.5-10.1) Total Bilirubin 0.5 MG/DL (0.2-1.0) Aspartate Amino Transferase (AST) 97 U/L (15-37) H Alanine Aminotransferase (ALT) 80 U/L (12-78) H Alkaline Phosphatase 305 U/L (46-116) H Total Creatine Kinase 133 U/L (26-308) Troponin I 0.000 ng/mL (0.000-0.056) Pro-B-Type Natriuretic Peptide 294 pg/mL (0-125) H Total Protein 7.9 G/DL (6.4-8.2) Albumin 3.2 G/DL (3.4-5.0) L Globulin 4.7 g/dL Albumin/Globulin Ratio 0.7 (1.0-2.7) L Urine Opiates Screen Positive (NEGATIVE) H Urine Barbiturates Screen Negative (NEGATIVE) Phencyclidine (PCP) Screen Negative (NEGATIVE) Urine Amphetamines Screen Negative (NEGATIVE) Urine Benzodiazepines Screen Negative (NEGATIVE) Urine Cocaine Screen Negative (NEGATIVE) Urine Marijuana (THC) Screen Negative (NEGATIVE) EKG Diagnostic Results Rate: normal Rhythm: NSR ST Segments: no acute changes Rhythm Strip Diag. Results EP Interpretation: yes Rhythm: NSR, no PVC's, no ectopy Chest X-Ray Diagnostic Results Chest X-Ray Diagnostic Results : Chest X-Ray Ordered: Yes # of Views/Limited/Complete: 1 View Indication: Chest Pain EP Interpretation: Yes Interpretation: no effusion, no pneumothorax, other - portacath, bone mets Impression: Other Electronically Signed by: Electronically signed by Jeromy Johnson MD Other X-Ray Diagnostic Results Other X-Ray Diagnostic Results : X-Ray ordered: Abdomen # of Views/Limited Vs Complete: 1 View Indication: Other EP Interpretation: Yes Interpretation: nonspecific bowel gas, no sbo, other - No masses increased stool load, bone mets Impression: Other Electronically Signed by: Electronically signed by Jeromy Johnson MD Last Vital Signs Date Time Temp Pulse Resp B/P (MAP) Pulse Ox O2 Delivery O2 Flow Rate FiO2 04/17/19 18:28 98.6 92 18 135/72 93 Room Air Status: improved Disposition: HOME, SELF-CARE Condition: Improved Scripts Lactulose (LACTULOSE*) 20 Gm/30 Ml Solution 30 ML ORAL BID PRN for Constipation, #240 ML 0 Refills Prov: Jeromy Johnson MD 04/17/19 Acetaminophen (Tylenol) 325 Mg Tablet 650 MG ORAL Q6H PRN for Prn Pain/Headache/Temp > 101, #20 TAB 0 Refills Prov: Jeromy Johnson MD 04/17/19 Nitrofurantoin Monohyd/M-Cryst* (MACROBID 100 MG*) 100 Mg Capsule 100 MG ORAL EVERY 12 HOURS, #14 CAP Prov: Jeromy Johnson MD 04/17/19 Jeromy Johnson MD Apr 17, 2019 11:56
[2019-04-17] MEDS ORDERED: Aspirin Baby 81mg ORAL ONE (12:00)
[2019-04-17] MEDS ORDERED: Lactulose 20gm/30ml UDC ORAL ONE (12:00)
[2019-04-17] MEDS ORDERED: Metoclopramide 10mg/2ml Inj IVP ONE (12:00)
[2019-04-17] MEDS ORDERED: DiphenhydrAMINE 50mg/ml Inj IVP ONE (12:00)
[2019-04-17 12:04] LABS: HEMATOCRIT 32.1 % (37.0-47.0); HEMOGLOBIN 9.9 G/DL (12.0-16.0); LYMPHOCYTES % (AUTO) 28.2 % (20.0-45.0); MEAN CORPUSCULAR VOLUME 77 FL (80-99); MONOCYTES % (AUTO) 6.1 % (1.0-10.0); NEUTROPHILS % (AUTO) 63.7 % (45.0-75.0); PLATELET COUNT 327 K/UL (150-450); RED BLOOD COUNT 4.18 M/UL (4.20-5.40); WHITE BLOOD COUNT 7.1 K/UL (4.8-10.8)
--- NOTE | 2019-04-17 12:04 | NUR ---
ED Nurse Note: xray at bedside.
[2019-04-17 12:07] LABS: INR 1.1 (0.9-1.1)
[2019-04-17 12:13] LABS: ANION GAP 11 mmol/L (5-15); BLOOD UREA NITROGEN 8 mg/dL (7-18); CALCIUM 10.1 MG/DL (8.5-10.1); CARBON DIOXIDE 30 MMOL/L (21-32); CHLORIDE 100 MMOL/L (98-107); CREATININE 0.9 MG/DL (0.55-1.30); POTASSIUM 3.6 MMOL/L (3.5-5.1); SODIUM 141 MMOL/L (136-145)
[2019-04-17 12:24] LABS: ALANINE AMINOTRANSFERASE 80 U/L (12-78); ALBUMIN 3.2 G/DL (3.4-5.0); ALBUMIN/GLOBULIN RATIO 0.7 (1.0-2.7); ALKALINE PHOSPHATASE 305 U/L (46-116); ASPARTATE AMINO TRANSFERASE 97 U/L (15-37); BILIRUBIN,TOTAL 0.5 MG/DL (0.2-1.0); CREATINE KINASE 133 U/L (26-308)
--- NOTE | 2019-04-17 12:32 | NUR ---
ED Nurse Note: Urine collected, sent down to lab.
[2019-04-17 12:40] LABS: APPEARANCE,URINE CLEAR; BILIRUBIN, URINE NEGATIVE (NEGATIVE); GLUCOSE, URINE (UA) NEGATIVE (NEGATIVE); KETONES,URINE NEGATIVE (NEGATIVE); LEUKOCYTE ESTERASE ,URINE 3+ (NEGATIVE); NITRITE,URINE NEGATIVE (NEGATIVE); PH,URINE 7 (4.5-8.0); PROTEIN,URINE NEGATIVE (NEGATIVE); UROBILINOGEN,URINE 4 MG/DL (0.0-1.0)
[2019-04-17 12:47] LABS: COLOR,URINE YELLOW
[2019-04-17 12:56] VITALS: BP 140/76
--- NOTE | 2019-04-17 13:00 | NUR ---
ED Nurse Note: Patient remains in bed, VSS, no distress noted. Will continue to monitor patient.
--- NOTE | 2019-04-17 13:14 | Diagnostic Imaging Report ---
EXAM: XR Abdomen, 2 Views CLINICAL HISTORY: ABD PAIN TECHNIQUE: Frontal view of the abdomen pelvis with upright view of the abdomen. COMPARISON: None FINDINGS: Hardware: None. Abdomen: Nonobstructive bowel gas pattern. No free air. Bones: Patchy sclerosis and lucency in left greater than right pelvic bones may represent osseous metastatic disease. Degenerative changes of left greater than right hips. Degenerative changes of the spine. Soft tissues: Bilateral breast implants. Lower chest: Please see accompanying chest radiograph. IMPRESSION: 1. Nonobstructive bowel gas pattern. 2. Suggestion of osseous metastases.
--- NOTE | 2019-04-17 13:19 | Diagnostic Imaging Report ---
EXAM: XR Chest, 1 View CLINICAL HISTORY: ABD PAIN TECHNIQUE: Frontal view of the chest. COMPARISON: Chest radiograph on 02 12 2019 FINDINGS: Examination is limited by patient positioning and rotation. Hardware: Right-sided Port-A-Cath terminates near the junction of the SVC and right atrium. Lungs pleura: Hazy opacities may represent pulmonary edema versus atelectasis versus infectious inflammatory process. Possible small bilateral pleural effusions. Left basilar atelectasis versus pneumonia. Heart mediastinum: Normal. No cardiomegaly. Soft tissues: Bilateral breast implants. Left axillary lymph node dissection changes. Bones: Multiple probable old right-sided rib fracture deformities. Age- indeterminate left-sided rib fracture deformities. Further evaluation could be performed with CT if clinically indicated. Lucent lesions in the humeri and glenoid bones may represent osseous metastases. Upper abdomen: Normal. IMPRESSION: 1. Multiple probable old right-sided rib fracture deformities. Age- indeterminate left-sided rib fracture deformities. Further evaluation could be performed with CT if clinically indicated. 2. Hazy opacities may represent pulmonary edema versus atelectasis versus infectious inflammatory process. Possible small bilateral pleural effusions. Left basilar atelectasis versus pneumonia. 3. Lucent lesions in the humeri and glenoid bones may represent osseous metastases.
[2019-04-17 14:44] VITALS: BP 116/84
[2019-04-17] MEDS ORDERED: cefTRIAXone 1 GM in NS 55 ML IVPB ONE (15:00)
--- NOTE | 2019-04-17 15:00 | NUR ---
ED Nurse Note: Patient requesting to walk to the bathroom, instructed about fall precautions, patient verbalized understanding and agreed to use bedpan at this time. VSS remains stable, will continue to monitor.
[2019-04-17] MEDS ORDERED: Ketamine HCl 50mg/ml 1ml Syr IV ONE (15:15)
[2019-04-17] MEDS ORDERED: NITROFURANTOIN100 M2 ORAL (15:36)
[2019-04-17] MEDS ORDERED: LACTULOSE20 GM/301 ORAL (15:36)
[2019-04-17] MEDS ORDERED: TYLENOL325 MG ORAL (15:36)
[2019-04-17 16:10] VITALS: BP 128/70
--- NOTE | 2019-04-17 16:31 | NUR ---
ED Nurse Note: Patient remains in bed with VSS, denies pain at this time. Provided sandwich. Will continue to monitor.
--- NOTE | 2019-04-17 18:20 | NUR ---
ER DISCHARGE NOTE: Patient is cleared to be discharged via ambulance per ERMD, pt is aox4, on room air, with stable vital signs. pt was given dc and prescription instructions, pt was able to verbalize understanding, pt id band and iv site removed without complications. pt took all belongings.
[2019-04-17 18:28] VITALS: BP 135/72
== END 2019-04-17 18:20 | disposition home or self-care (01) ==
LOC: EDBD 11:45 → EMR 14:29
DX: R07.9 Chest pain, unspecified (principal); K59.03 Drug induced constipation; N30.00 Acute cystitis without hematuria; Z85.3 Personal history of malignant neoplasm of breast
CPT/HCPCS: 36415; 71045; 74018; 80053; 80307; 81003; 82550; 83880; 84484; 85025; 85610; 85730; 87086; 93005; 96365; 96375; 99284; J0696; J1200; J2765; 87181

== ENCOUNTER 2019-04-27 20:21 | Emergency (ER) | payer OTHER ==
[~2019-04-27] VITALS: Ht 157.5 cm; Wt 72.6 kg
[~2019-04-27 20:21] MED LIST changes: +LACTULOSE20 GM/301 ORAL; +NITROFURANTOIN100 M2 ORAL; +TYLENOL325 MG ORAL
[2019-04-27 20:29] VITALS: BP 126/80
--- NOTE | 2019-04-27 20:44 | Emergency Room Report ---
History of Present Illness General Chief Complaint: Pain Source: Patient Present Illness HPI 58-year-old female presents with acute on chronic pain, she endorses an acute exacerbation of her cancer pain, she has metastatic breast cancer, currently on palliative therapy receiving chemo, she takes morphine at home, no fevers no chills no chest pain or shortness of breath, she has bilateral breast pain aggravated by her cancer alleviated with pain medication severity is moderate, constant, patient presents for evaluation Allergies: Coded Allergies: No Known Allergies (Unverified , 12/02/15) Patient History Past Medical History: see triage record Reviewed Nursing Documentation: PMH: Agreed; PSxH: Agreed Nursing Documentation-PMH Past Medical History: No History, Except For Hx Asthma: Yes Hx Cancer: Yes Hx Gastrointestinal Problems: No Hx Neurological Problems: No Review of Systems All Other Systems: negative except mentioned in HPI Physical Exam Vital Signs Date Time Temp Pulse Resp B/P (MAP) Pulse Ox O2 Delivery O2 Flow Rate FiO2 04/27/19 20:24 97.5 120 14 128/81 (97) 100 Room Air Sp02 EP Interpretation: reviewed, normal General Appearance: alert, mild distress Head: normocephalic, atraumatic Eyes: bilateral eye PERRL, bilateral eye EOMI ENT: uvula midline, moist mucus membranes Neck: supple, thyroid normal, supple/symm/no masses Respiratory: lungs clear, no respiratory distress, no retraction, no accessory muscle use Cardiovascular #1: normal peripheral pulses, regular rate, rhythm, no edema, no gallop, no murmur Gastrointestinal: non tender, soft, no guarding, no rebound Musculoskeletal: normal inspection Neurologic: alert, oriented x3 Psychiatric: mood/affect normal Skin: no rash, warm/dry, other - Johanna Benitez RN present during exam, patient with mastectomy, no abscess, no cellulitis Medical Decision Making Diagnostic Impression: Primary Impression: Cancer related pain ER Course 58-year-old female presents with cancer related pain, will start low-dose ketamine, will also give acetaminophen, Toradol, Dilaudid, will hit all receptors for pain control Patient with an acute exacerbation, Patient is currently taking morphine at home Pain was well controlled, disposition home with return precautions Last Vital Signs Date Time Temp Pulse Resp B/P (MAP) Pulse Ox O2 Delivery O2 Flow Rate FiO2 04/27/19 20:29 97.8 81 16 126/80 100 Room Air Disposition: HOME, SELF-CARE Condition: Stable Referrals: [facility] Heather Cabrera. [facility] Patient Instructions: Chronic Pain Additional Instructions: The patient was provided with discharge instructions, notified to follow-up with a primary care doctor and or specialist in the next 24-48 hours, and to return to the ED if they have worsening of their symptoms. Please note that this report is being documented using [employer] technology. This can lead to erroneous entry secondary to incorrect interpretation by the dictating instrument. Calin Estevez MD Apr 27, 2019 20:44
[2019-04-27] MEDS ORDERED: HYDROmorphone 1mg/ml Carpuject IVP ONE (20:45)
[2019-04-27] MEDS ORDERED: DiphenhydrAMINE 50mg/ml Inj IVP ONE (20:45)
[2019-04-27] MEDS ORDERED: Ketamine HCl 50mg/ml 1ml Syr IV ONE (20:45)
[2019-04-27] MEDS ORDERED: Ketorolac 30mg Inj IV ONE (20:45)
[2019-04-27] MEDS ORDERED: Acetaminophen 500mg (ES) tab ORAL ONE (20:45)
[2019-04-28 02:29] VITALS: BP 110/86
== END 2019-04-27 22:02 | disposition home or self-care (01) ==
LOC: EDBD 20:21 → EDUNIT# 20:21 → EMR 21:15
DX: G89.3 Neoplasm related pain (acute) (chronic) (principal); J45.909 Unspecified asthma, uncomplicated; C79.81 Secondary malignant neoplasm of breast
CPT/HCPCS: 96361; 96374; 96375; 99284; J1170; J1200; J1885; J2405; S0028

== ENCOUNTER 2019-04-28 20:10 | Emergency (ER) | payer OTHER ==
[~2019-04-28] VITALS: Ht 157.5 cm; Wt 72.6 kg
--- NOTE | 2019-04-28 20:11 | NUR ---
ED Nurse Note: PT BIBA [id number] FROM HOME C/O GENERALIZED BODY ACHE S/P FALL TODAY. AO4. NAD. VSS.
[2019-04-28 20:13] VITALS: BP 120/75
--- NOTE | 2019-04-28 20:25 | Emergency Room Report ---
History of Present Illness General Chief Complaint: Multiple Trauma/Fall Source: Patient Present Illness HPI This is a 58-year-old female with a history of metastatic breast cancer. She is undergoing chemotherapy. She also has history of chronic pain and cocaine abuse in the past. Patient complaining of neck pain status post fall. Patient claimed that she thought she can walk and try to get out of the wheelchair to the bathroom. She said she laid on the floor. She complained of neck pain. She called 911. Per sign wirer, they met her in front of her apartment in her wheelchair. She complained of 10 out of 10 neck pain. Worse with movement. No loss of consciousness. No other injury. She requesting Dilaudid, Benadryl and ketamine. She takes morphine and Blue Eye at home. She is here yesterday for also hip pain from a fall. Allergies: Coded Allergies: No Known Allergies (Unverified , 12/02/15) Patient History Past Medical History: see triage record, old chart reviewed Past Surgical History: other Pertinent Family History: none Social History: Denies: smoking Now: No Immunizations: other Reviewed Nursing Documentation: PMH: Agreed; PSxH: Agreed Nursing Documentation-PMH Past Medical History: No History, Except For Hx Asthma: Yes Hx Cancer: Yes Hx Gastrointestinal Problems: No Hx Neurological Problems: No Review of Systems Eye: Denies: eye pain, blurred vision ENT: Denies: ear pain, nose congestion, throat swelling Respiratory: Denies: cough, shortness of breath Cardiovascular: Denies: chest pain, palpitations Gastrointestinal: Denies: abdominal pain, diarrhea, nausea, vomiting Musculoskeletal: Reports: joint pain; Denies: back pain Skin: Denies: rash Neurological: Denies: headache, numbness Endocrine: Denies: increased thirst, increased urine Hematologic/Lymphatic: Denies: easy bruising All Other Systems: negative except mentioned in HPI Physical Exam Vital Signs Date Time Temp Pulse Resp B/P (MAP) Pulse Ox O2 Delivery O2 Flow Rate FiO2 04/28/19 20:09 99.0 94 16 120/75 (90) 96 Room Air Vitals normal Sp02 EP Interpretation: reviewed, normal General Appearance: well appearing, no apparent distress, alert Head: normocephalic, atraumatic Eyes: bilateral eye PERRL, bilateral eye EOMI ENT: hearing grossly normal, normal pharynx Neck: full range of motion, supple, no meningismus, tender - Patient complained of neck pain mostly left side. Respiratory: chest non-tender, lungs clear, normal breath sounds Cardiovascular #1: regular rate, rhythm, no murmur Gastrointestinal: normal bowel sounds, non tender, no mass, no organomegaly, no bruit, non-distended Musculoskeletal: back normal, normal range of motion Psychiatric: mood/affect normal Medical Decision Making Diagnostic Impression: Primary Impression: Cervical strain, acute Qualified Codes: S16.1XXA - Strain of muscle, fascia and tendon at neck level , initial encounter Additional Impression: Chronic pain Qualified Codes: G89.4 - Chronic pain syndrome ER Course This patient presents with neck pain. Supposedly head injury. She was here yesterday for the same thing. She was at [facility] for pain complaint the day before. She is sitting comfortably looking at a magazine. No distress. She does not look to be in pain. I offered her Blue Eye for her pain. She did not take her morphine tonight. She took 3 of her morphine tablets here in the ER. . CT neck negative for any acute fracture. Will discharge home. CT/MRI/US Diagnostic Results CT/MRI/US Diagnostic Results : Imaging Test Ordered: CT C spine Impression Read by radiologist. Metastatic disease to the bone. No acute fracture. Last Vital Signs Date Time Temp Pulse Resp B/P (MAP) Pulse Ox O2 Delivery O2 Flow Rate FiO2 04/28/19 20:13 94 16 Room Air 04/28/19 20:13 99.0 120/75 96 Status: improved Disposition: HOME, SELF-CARE Condition: Stable Additional Instructions: Follow-up with your doctor in 7 days. Take your pain medication. Return if symptoms worsen. Shailesh Felder MD Apr 28, 2019 20:25
[2019-04-28] MEDS ORDERED: HYDROcodone/Acetamin 5/325 tab ORAL ONE (20:30)
--- NOTE | 2019-04-28 21:02 | Diagnostic Imaging Report ---
Indication: Cervical trauma/pain. Technique: Continuous helical imaging of the cervical spine was obtained transaxially from the skull base to the upper thoracic spine. 2-D coronal and sagittal reformatted images were obtained. Automatic Exposure Control was utilized. Total Dose length Product (DLP): 316.[address] Dose Index Volume (CTDIvol): 15 mGy Comparison: None Findings: Bone mineralization is abnormal. There are patchy areas of lucency intermixed with the areas of sclerosis. Findings are suspicious for metastatic neoplasm involving the cervical spine extensively. There are also lesions within the skull base. There is a compression fracture deformity involving the T1 vertebra centrally. There is no obvious retropulsion. There is no evidence of stenosis of the central bony canal. There is no obvious acute fracture identified otherwise. Study is degraded by artifact. There are subacute bilateral rib fractures as well. IMPRESSION: Limited evaluation due to artifact. Evidence of extensive lytic/sclerotic lesions throughout the visualized osseous structures suspicious for metastatic neoplasm. T1 vertebral fracture with moderate loss of height, acuity indeterminate. This is probably a pathologic fracture. No obvious evidence for stenosis of the central bony canal. [facility] has communicated the preliminary results to the Emergency Department. Their findings are largely concordant with this report. The CT scanner at [facility] is accredited by the [employer] and the scans are performed using dose optimization techniques as appropriate to a performed exam including Automatic Exposure control.
--- NOTE | 2019-04-28 21:38 | NUR ---
ER DISCHARGE NOTE: Patient is cleared to be discharged per ERMD, pt is aox4, on room air, with stable vital signs. pt was given dc and prescription instructions, pt was able to verbalize understanding, pt id removed. report given to [facility]. patient left for home via gurney with all belongings.
[2019-04-28 21:39] VITALS: BP 120/75
== END 2019-04-28 21:40 | disposition home or self-care (01) ==
LOC: EDBD 20:10 → EMR 20:24
DX: S16.1XXA Strain of muscle, fascia and tendon at neck level, initial encounter (principal); G89.4 Chronic pain syndrome; C79.81 Secondary malignant neoplasm of breast; J45.909 Unspecified asthma, uncomplicated; W05.0XXA Fall from non-moving wheelchair, initial encounter; Y93.9 Activity, unspecified; Y92.019 Unspecified place in single-family (private) house as the place of occurrence of the external cause
CPT/HCPCS: 72125; 99284

== ENCOUNTER → 2019-05-05 | Emergency (ER) | payer OTHER ==
[~2019-05-05] VITALS: Ht 162.6 cm; Wt 77.1 kg
[~2019-05-05] MED LIST changes: +Albuterol ud Inhalation HHN ONE; +Azithromycin 500 MG in D5W 275 ML IVPB ONE; +Hydromorphone 0.5mg/0.5ml inj IVP ONE; +Ipratropium 0.02% Inh Soln 2.5ml UD HHN ONE; +Morphine Sulfate 4mg/ml Inj (IV USE ONLY) IVP ONE; +Piperacillin/Tazobactam 3.375 GM in NS 110 ML IVPB ONE
--- NOTE | 2019-05-05 05:05 | NUR ---
ED Nurse Note: Patient was BIBA RA 26 due to body pain. VSS, NAD, ERMD at bedside. Will continue to monitor.
--- NOTE | 2019-05-05 05:26 | Emergency Room Report ---
History of Present Illness General Chief Complaint: General Complaint Source: Patient, EMS (Jono Topete MD) Present Illness HPI Patient 58-year-old female presents after increased pain to her neck and chest. She reports having prior history of breast cancer. She states that she had been having increased cough and difficulty with discolored sputum. Prior history of chronic pain and was noted to have prior metastases to her neck. She had been nonambulatory (Jono Topete MD) Allergies: Coded Allergies: No Known Allergies (Unverified , 12/02/15) Patient History Past Medical History: see triage record Reviewed Nursing Documentation: PMH: Agreed; PSxH: Agreed (Jono Topete MD) Nursing Documentation-PMH Hx Asthma: Yes Hx Cancer: Yes Hx Gastrointestinal Problems: No Hx Neurological Problems: No (Jono Topete MD) Review of Systems Respiratory: Reports: cough Cardiovascular: Reports: chest pain, edema Musculoskeletal: Reports: muscle pain Neurological: Reports: numbness All Other Systems: limited (Jono Topete MD) Physical Exam Vital Signs Date Time Temp Pulse Resp B/P (MAP) Pulse Ox O2 Delivery O2 Flow Rate FiO2 05/05/19 04:57 98.6 110 18 139/87 (104) 95 Room Air General Appearance: alert, GCS 15 Head: normocephalic ENT: normal ENT inspection, hearing grossly normal Neck: limited range of motion Respiratory: lungs clear, normal breath sounds Cardiovascular #1: normal inspection, regular rate, rhythm, tachycardia Gastrointestinal: normal inspection Musculoskeletal: normal inspection, back normal, decreased range of motion, normal range of motion, other - bilateral leg edema and plantar flexion contracture Neurologic: motor weakness - bilateral lower extremity (Jono Topete MD) Medical Decision Making Diagnostic Impression: Primary Impression: Left lower lobe pneumonia Qualified Codes: J18.9 - Pneumonia, unspecified organism Additional Impressions: Intractable pain Metastatic breast cancer Elevated lactic acid level UTI (urinary tract infection) Qualified Codes: N39.0 - Urinary tract infection, site not specified ER Course Patient presented for increased pain differential diagnosis. Differential diagnosis include was not limited to infection, pneumonia. COPD exacerbation, metastatic breast cancer among others. because of complexity of patient's case laboratory tests and imaging studies were ordered. The patient was noted to have a prior history of widely metastatic breast cancer. Patient was given IV fluids as well as IV pain medications. Patient is DrYaritza endorsed to Dr. Johnson pending insurance authorization. Labs Test 05/05/19 06:05 05/05/19 07:20 05/05/19 08:59 White Blood Count 12.3 K/UL (4.8-10.8) Red Blood Count 3.37 M/UL (4.20-5.40) Hemoglobin 8.2 G/DL (12.0-16.0) Hematocrit 27.1 % (37.0-47.0) Mean Corpuscular Volume 81 FL (80-99) Mean Corpuscular Hemoglobin 24.3 PG (27.0-31.0) Mean Corpuscular Hemoglobin Concent 30.1 G/DL (32.0-36.0) Red Cell Distribution Width 20.8 % (11.6-14.8) Platelet Count 268 K/UL (150-450) Mean Platelet Volume 4.7 FL (6.5-10.1) Neutrophils (%) (Auto) 61.5 % (45.0-75.0) Lymphocytes (%) (Auto) 31.5 % (20.0-45.0) Monocytes (%) (Auto) 5.0 % (1.0-10.0) Eosinophils (%) (Auto) 1.0 % (0.0-3.0) Basophils (%) (Auto) 1.1 % (0.0-2.0) Sodium Level 142 MMOL/L (136-145) Potassium Level 4.2 MMOL/L (3.5-5.1) Chloride Level 104 MMOL/L (98-107) Carbon Dioxide Level 31 MMOL/L (21-32) Anion Gap 8 mmol/L (5-15) Blood Urea Nitrogen 5 mg/dL (7-18) Creatinine 0.8 MG/DL (0.55-1.30) Estimat Glomerular Filtration Rate > 60 mL/min (>60) Glucose Level 108 MG/DL (74-106) Calcium Level 9.0 MG/DL (8.5-10.1) Total Bilirubin 0.5 MG/DL (0.2-1.0) Aspartate Amino Transf (AST/SGOT) 73 U/L (15-37) Alanine Aminotransferase (ALT/SGPT) 23 U/L (12-78) Alkaline Phosphatase 438 U/L (46-116) Troponin I 0.000 ng/mL (0.000-0.056) Pro-B-Type Natriuretic Peptide 121 pg/mL (0-125) Total Protein 7.2 G/DL (6.4-8.2) Albumin 2.8 G/DL (3.4-5.0) Globulin 4.4 g/dL Albumin/Globulin Ratio 0.6 (1.0-2.7) Urine Color Yellow Urine Appearance Clear Urine pH 6 (4.5-8.0) Urine Specific [place] 1.010 (1.005-1.035) Urine Protein 2+ (NEGATIVE) Urine Glucose (UA) Negative (NEGATIVE) Urine Ketones 2+ (NEGATIVE) Urine Blood 1+ (NEGATIVE) Urine Nitrite Negative (NEGATIVE) Urine Bilirubin Negative (NEGATIVE) Urine Urobilinogen 1 MG/DL (0.0-1.0) Urine Leukocyte Esterase 1+ (NEGATIVE) Urine RBC 5-10 /HPF (0 - 2) Urine WBC 5-10 /HPF (0 - 2) Urine Squamous Epithelial Cells Few /LPF (NONE/OCC) Urine Bacteria Few /HPF (NONE) Urine Mucus Few /LPF (NONE/OCC) Lactic Acid Level 2.00 mmol/L (0.66-2.22) (Jono Topete MD) ER Course Please see above note Patient complaining of anxiety and continued pain. Morphine repeated. Labs significant for elevated white count. Chest x-ray reveals a new left lower lobe infiltrate. Lactic acid elevated. SEPSIS RE-EVALUATION: Jeromy Kamara MD, Performed the Sepsis Re-evaluation at 07:36. Capillary fill good. Elevated lactic acid. Evidence of source of infection left lower lobe. Fluid bolus of 1 L and 300 mils per hour ordered. Mentation excellent. Antibiotics ordered also. Discussed with Dr. España who accepted the patient. Patient still in pain. Third dose of morphine given. Consideration of switching over to Dilaudid. Dilaudid given prior to transfer. Laboratory Tests Test 05/05/19 06:05 05/05/19 07:20 White Blood Count 12.3 K/UL (4.8-10.8) H Red Blood Count 3.37 M/UL (4.20-5.40) L Hemoglobin 8.2 G/DL (12.0-16.0) L Hematocrit 27.1 % (37.0-47.0) L Mean Corpuscular Volume 81 FL (80-99) Mean Corpuscular Hemoglobin 24.3 PG (27.0-31.0) L Mean Corpuscular Hemoglobin Concent 30.1 G/DL (32.0-36.0) L Red Cell Distribution Width 20.8 % (11.6-14.8) H Platelet Count 268 K/UL (150-450) Mean Platelet Volume 4.7 FL (6.5-10.1) L Neutrophils (%) (Auto) 61.5 % (45.0-75.0) Lymphocytes (%) (Auto) 31.5 % (20.0-45.0) Monocytes (%) (Auto) 5.0 % (1.0-10.0) Eosinophils (%) (Auto) 1.0 % (0.0-3.0) Basophils (%) (Auto) 1.1 % (0.0-2.0) Sodium Level 142 MMOL/L (136-145) Potassium Level 4.2 MMOL/L (3.5-5.1) Chloride Level 104 MMOL/L (98-107) Carbon Dioxide Level 31 MMOL/L (21-32) Anion Gap 8 mmol/L (5-15) Blood Urea Nitrogen 5 mg/dL (7-18) L Creatinine 0.8 MG/DL (0.55-1.30) Estimate Glomerular Filtration Rate > 60 mL/min (>60) Glucose Level 108 MG/DL (74-106) H Lactic Acid Level 2.20 mmol/L (0.4-2.0) H Calcium Level 9.0 MG/DL (8.5-10.1) Total Bilirubin 0.5 MG/DL (0.2-1.0) Aspartate Amino Transferase (AST) 73 U/L (15-37) H Alanine Aminotransferase (ALT) 23 U/L (12-78) Alkaline Phosphatase 438 U/L (46-116) H Troponin I 0.000 ng/mL (0.000-0.056) Pro-B-Type Natriuretic Peptide 121 pg/mL (0-125) Total Protein 7.2 G/DL (6.4-8.2) Albumin 2.8 G/DL (3.4-5.0) L Globulin 4.4 g/dL Albumin/Globulin Ratio 0.6 (1.0-2.7) L Urine Color Pending Urine Appearance Pending Urine pH Pending Urine Specific [place] Pending Urine Protein Pending Urine Glucose (UA) Pending Urine Ketones Pending Urine Blood Pending Urine Nitrite Pending Urine Bilirubin Pending Urine Urobilinogen Pending Urine Leukocyte Esterase Pending (Jeromy Johnson MD) Rhythm Strip Diag. Results EP Interpretation: yes Rhythm: no PVC's, no ectopy, other - Sinus tachycardia (Jeromy Johnson MD) Chest X-Ray Diagnostic Results Chest X-Ray Diagnostic Results : Chest X-Ray Ordered: Yes # of Views/Limited/Complete: 1 View Indication: Other EP Interpretation: Yes Interpretation: no effusion, no pneumothorax, other - LLL infiltrate, nicole cath, mets Impression: Other Electronically Signed by: Electronically signed by Jeromy Johnson MD (Jeromy Johnson MD) Last Vital Signs Date Time Temp Pulse Resp B/P (MAP) Pulse Ox O2 Delivery O2 Flow Rate FiO2 05/05/19 04:57 98.6 110 18 139/87 (104) 95 Room Air Status: improved (Jono Topete MD) Last Vital Signs Date Time Temp Pulse Resp B/P (MAP) Pulse Ox O2 Delivery O2 Flow Rate FiO2 05/05/19 09:25 98.6 115 12 122/100 98 Nasal Cannula 05/05/19 06:35 2.0 96 Status: improved (Jeromy Johnson MD) Disposition: XFER [facility] Condition: Serious Referrals: [facility],REFERRING (PCP) Jono Topete MD May 05, 2019 05:26 Jeromy Johnson MD May 05, 2019 07:37
[2019-05-05 06:10] VITALS: BP 139/87
--- NOTE | 2019-05-05 06:10 | NUR ---
ED Nurse Note: IV access established with 22g on right hand. Blood drawn and sent for lab. line patent and intact.
--- NOTE | 2019-05-05 06:20 | NUR ---
ED Nurse Note: Pt on 2L NC per request. States "i feel short of breath". SpO2 at 96% room air prior to NC. Will continue to monitor.
[2019-05-05 06:36] LABS: BASOPHILS % (AUTO) 1.1 % (0.0-2.0); HEMATOCRIT 27.1 % (37.0-47.0); HEMOGLOBIN 8.2 G/DL (12.0-16.0); LYMPHOCYTES % (AUTO) 31.5 % (20.0-45.0); MEAN CORPUSCULAR VOLUME 81 FL (80-99); NEUTROPHILS % (AUTO) 61.5 % (45.0-75.0); PLATELET COUNT 268 K/UL (150-450); RED BLOOD COUNT 3.37 M/UL (4.20-5.40); RED CELL DISTRIBUTION WIDTH 20.8 % (11.6-14.8); WHITE BLOOD COUNT 12.3 K/UL (4.8-10.8)
[2019-05-05 06:45] LABS: ANION GAP 8 mmol/L (5-15); BLOOD UREA NITROGEN 5 mg/dL (7-18); CARBON DIOXIDE 31 MMOL/L (21-32); CHLORIDE 104 MMOL/L (98-107); CREATININE 0.8 MG/DL (0.55-1.30); POTASSIUM 4.2 MMOL/L (3.5-5.1); SODIUM 142 MMOL/L (136-145)
[2019-05-05 06:56] LABS: ALANINE AMINOTRANSFERASE 23 U/L (12-78); ALBUMIN 2.8 G/DL (3.4-5.0); ALBUMIN/GLOBULIN RATIO 0.6 (1.0-2.7); ALKALINE PHOSPHATASE 438 U/L (46-116); ASPARTATE AMINO TRANSFERASE 73 U/L (15-37); BILIRUBIN,TOTAL 0.5 MG/DL (0.2-1.0)
--- NOTE | 2019-05-05 07:10 | NUR ---
HAND-OFF: Report given to Yvonne CACERES.
[2019-05-05 07:44] LABS: APPEARANCE,URINE CLEAR; BILIRUBIN, URINE NEGATIVE (NEGATIVE); GLUCOSE, URINE (UA) NEGATIVE (NEGATIVE); KETONES,URINE 2+ (NEGATIVE); LEUKOCYTE ESTERASE ,URINE 1+ (NEGATIVE); NITRITE,URINE NEGATIVE (NEGATIVE); PH,URINE 6 (4.5-8.0); PROTEIN,URINE 2+ (NEGATIVE); UROBILINOGEN,URINE 1 MG/DL (0.0-1.0)
[2019-05-05 08:15] LABS: COLOR,URINE YELLOW
--- NOTE | 2019-05-05 09:17 | Diagnostic Imaging Report ---
Indication: Shortness of breath Technique: One view of the chest Comparison: 04/17/2019 Findings: Atelectasis or infiltrate is demonstrated at the left lung base. There is a right chest port catheter. There is generalized mild interstitial congestion. There are left axillary surgical clips. Impression: Left basilar infiltrate and atelectasis Generalized mild interstitial congestion This agrees with the preliminary interpretation provided by the emergency room physician .
[2019-05-05 09:25] VITALS: BP 122/100
--- NOTE | 2019-05-05 09:26 | NUR ---
ED Nurse Note: resumed care at 0710 pt on monitor vss . pt alert awake speaking in full sentences. pt medicated ivf and meds well tolerated. pt pulled out her SL that was established earlier. New SL established to left wrist . 2nd lactic redrawn and sent. pt awaiting tx .
--- NOTE | 2019-05-05 10:25 | NUR ---
ED Nurse Note: report given to Ofelia Palacios at [facility].
--- NOTE | 2019-05-05 12:44 | Cardiology Report ---
APPROVED REPORT EKG Measurement Heart [id number] Normal sinus rhythm Possible Anterior infarct, age undetermined T wave abnormality, consider inferior ischemia Abnormal ECG
== END | disposition home or self-care (01) ==
LOC: EDUNIT# 04:54 → EDBD 04:59 → EMR 05:13 → EDBEDREQ 07:36 → EDBEDREQSVC 08:35 → EDBEDREQ 08:35
DX: J18.9 Pneumonia, unspecified organism (principal); M79.10 Myalgia, unspecified site; N39.0 Urinary tract infection, site not specified; C79.81 Secondary malignant neoplasm of breast; R74.0 Nonspecific elevation of levels of transaminase and lactic acid dehydrogenase [LDH]; J45.909 Unspecified asthma, uncomplicated
CPT/HCPCS: 36415; 71045; 80053; 81003; 83605; 83880; 84484; 85025; 87040; 93005; 94640; 94664; 96365; 96368; 96375; 96376; 99285; J0456; J1170; J2270; J2543; J7030

== ENCOUNTER 2019-05-09 11:36 | Emergency (ER) | payer OTHER ==
[~2019-05-09] VITALS: Ht 162.6 cm; Wt 49.9 kg
[~2019-05-09 11:36] MED LIST changes: -Albuterol ud Inhalation HHN ONE; -Azithromycin 500 MG in D5W 275 ML IVPB ONE; -Hydromorphone 0.5mg/0.5ml inj IVP ONE; -Ipratropium 0.02% Inh Soln 2.5ml UD HHN ONE; -Morphine Sulfate 4mg/ml Inj (IV USE ONLY) IVP ONE; -Piperacillin/Tazobactam 3.375 GM in NS 110 ML IVPB ONE
[2019-05-09 11:40] VITALS: BP 131/94
--- NOTE | 2019-05-09 11:40 | NUR ---
ED Nurse Note: Pt brought in by [facility] RA 26 for pt worried about respiratory distres. Pt states she has hx of cancer and was supposed to go to chemo appt today. Pt notes she took a total of (8) 10mg oxycodone pills and was worried about her breathing. Per [facility], pts oxygen saturation was 96% on RA en route. Pt is breathing normal and unlabored, able to speak in full sentences at this time. Will continue to monitor.
--- NOTE | 2019-05-09 12:15 | NUR ---
ED Nurse Note: RT at bedside, placed on co2 monitor and 2 liters of oxygen via nasal cannula. will continue to monitor.
--- NOTE | 2019-05-09 12:20 | Diagnostic Imaging Report ---
Indication: Dyspnea, respiratory distress Technique: One view of the chest Comparison: 05/05/2019 Findings: Again demonstrated is thoracic deformity, particularly of the left chest wall, which demonstrates multiple old rib fractures. Is limits evaluation. There is a right chest port catheter again demonstrated. No definite infiltrates, effusions, congestion. Normal heart size. Impression: No definite acute process. Findings as noted
[2019-05-09 12:40] LABS: BASOPHILS % (AUTO) 1.6 % (0.0-2.0); EOSINOPHILS % (AUTO) 0.7 % (0.0-3.0); HEMATOCRIT 28.8 % (37.0-47.0); HEMOGLOBIN 8.6 G/DL (12.0-16.0); LYMPHOCYTES % (AUTO) 24.8 % (20.0-45.0); MEAN CORPUSCULAR VOLUME 80 FL (80-99); MONOCYTES % (AUTO) 6.5 % (1.0-10.0); NEUTROPHILS % (AUTO) 66.5 % (45.0-75.0); PLATELET COUNT 286 K/UL (150-450); RED BLOOD COUNT 3.59 M/UL (4.20-5.40); RED CELL DISTRIBUTION WIDTH 20.9 % (11.6-14.8); WHITE BLOOD COUNT 7.3 K/UL (4.8-10.8)
[2019-05-09 12:49] VITALS: BP 128/81
[2019-05-09 12:51] LABS: INR 1.1 (0.9-1.1)
[2019-05-09 13:34] LABS: ANION GAP 18 mmol/L (5-15); BLOOD UREA NITROGEN 13 mg/dL (7-18); CALCIUM 9.5 MG/DL (8.5-10.1); CARBON DIOXIDE 22 MMOL/L (21-32); CHLORIDE 98 MMOL/L (98-107); POTASSIUM 4.5 MMOL/L (3.5-5.1); SODIUM 138 MMOL/L (136-145)
[2019-05-09 13:45] LABS: ALANINE AMINOTRANSFERASE 24 U/L (12-78); ALBUMIN 3.2 G/DL (3.4-5.0); ALBUMIN/GLOBULIN RATIO 0.7 (1.0-2.7); ALKALINE PHOSPHATASE 488 U/L (46-116); ASPARTATE AMINO TRANSFERASE 88 U/L (15-37); BILIRUBIN,TOTAL 0.4 MG/DL (0.2-1.0); CREATINE KINASE 196 U/L (26-308)
--- NOTE | 2019-05-09 14:15 | NUR ---
ED Nurse Note: Pt able to urinate with bed side camode. Urine specimen sent to lab.
[2019-05-09 14:22] LABS: APPEARANCE,URINE CLEAR; BILIRUBIN, URINE NEGATIVE (NEGATIVE); GLUCOSE, URINE (UA) NEGATIVE (NEGATIVE); KETONES,URINE 2+ (NEGATIVE); LEUKOCYTE ESTERASE ,URINE 1+ (NEGATIVE); NITRITE,URINE NEGATIVE (NEGATIVE); PH,URINE 5 (4.5-8.0); PROTEIN,URINE 2+ (NEGATIVE); UROBILINOGEN,URINE NORMAL MG/DL (0.0-1.0)
[2019-05-09 14:23] LABS: COLOR,URINE YELLOW
--- NOTE | 2019-05-09 15:15 | Emergency Room Report ---
History of Present Illness General Chief Complaint: General Complaint Source: Patient, EMS Present Illness HPI Patient with metastatic breast cancer to bone took extra doses of Dilaudid today. She is worried about her breathing. She called paramedics to bring her in. Patient was evaluated May 05 and transferred for new left lower lobe pneumonia to [facility]. At that time she was also complaining about pain in her neck and left hip from bone mets. Patient admitted mid-March with these discharge diagnoses: Metastatic breast cancer Hypercalcemia of malignancy Leg edema Gait abnormality Pain No fevers, chills, sore throat, chest pain, palpitations, nausea, vomiting, diarrhea, dysuria, abdominal pain, shortness of breath, rashes, visual changes, dizziness, headache. Allergies: Coded Allergies: No Known Allergies (Unverified , 12/02/15) Patient History Past Medical History: see triage record Past Surgical History: other - Bilateral mastectomies Social History: Reports: alcohol use, drug use - THC in the past; Denies: smoking Social History Narrative assisted living Reviewed Nursing Documentation: PMH: Agreed; PSxH: Agreed Nursing Documentation-PMH Past Medical History: No Stated History Hx Asthma: Yes Hx Cancer: Yes Hx Gastrointestinal Problems: No Hx Neurological Problems: No Review of Systems All Other Systems: negative except mentioned in HPI Physical Exam Vital Signs Date Time Temp Pulse Resp B/P (MAP) Pulse Ox O2 Delivery O2 Flow Rate FiO2 05/09/19 11:18 97.5 94 16 131/94 (106) 98 Room Air 05/09/19 14:14 2.0 Sp02 EP Interpretation: reviewed, normal General Appearance: no apparent distress, GCS 15, non-toxic, Chronically Ill Head: normocephalic Eyes: bilateral eye normal inspection, bilateral eye PERRL, bilateral eye EOMI ENT: moist mucus membranes Neck: supple, other - Wearing cervical collar, tender - Diffuse Respiratory: lungs clear, normal breath sounds Cardiovascular #1: regular rate, rhythm, edema - Trace bilaterally Cardiovascular #2: 2+ radial (R) Gastrointestinal: normal inspection, normal bowel sounds, non tender, no mass, non-distended Musculoskeletal: back normal, normal range of motion, no calf tenderness Neurologic: alert, motor strength/tone normal, supplier diversity director III-XII nml as tested, oriented x3, sensory intact Psychiatric: depressed affect, anxious Skin: other - Surgical scars Medical Decision Making Diagnostic Impression: Primary Impression: Dyspnea Qualified Codes: R06.00 - Dyspnea, unspecified Additional Impressions: Chronic pain Qualified Codes: G89.3 - Neoplasm related pain (acute) (chronic) Metastatic breast cancer ER Course Patient presents with worry about taking excessive amounts of opiates. She has stage IV metastatic breast cancer. Differential includes opiate excess, poor pain control, exacerbation COPD amongst others. Evaluation with EKG, chest x- ray and labs. The patient is placed on a quality assurance monitor body and also a CO2 monitor. EKG without injury. Chest x-ray resolution of left pneumonia, Port-A-Cath. Normal white count. Anemia however slightly improved from last visit. CMP remarkable for elevated alkaline phosphatase. End-tidal CO2 remained stable. Discussed findings with patient who feels safe and able to return to her assisted living. Patient stable for outpatient observation and treatment. Laboratory Tests Test 05/09/19 12:25 05/09/19 14:10 White Blood Count 7.3 K/UL (4.8-10.8) Red Blood Count 3.59 M/UL (4.20-5.40) L Hemoglobin 8.6 G/DL (12.0-16.0) L Hematocrit 28.8 % (37.0-47.0) L Mean Corpuscular Volume 80 FL (80-99) Mean Corpuscular Hemoglobin 24.0 PG (27.0-31.0) L Mean Corpuscular Hemoglobin Concent 29.9 G/DL (32.0-36.0) L Red Cell Distribution Width 20.9 % (11.6-14.8) H Platelet Count 286 K/UL (150-450) Mean Platelet Volume 4.9 FL (6.5-10.1) L Neutrophils (%) (Auto) 66.5 % (45.0-75.0) Lymphocytes (%) (Auto) 24.8 % (20.0-45.0) Monocytes (%) (Auto) 6.5 % (1.0-10.0) Eosinophils (%) (Auto) 0.7 % (0.0-3.0) Basophils (%) (Auto) 1.6 % (0.0-2.0) Prothrombin Time 11.3 SEC (9.30-11.50) Prothrombin Time INR 1.1 (0.9-1.1) PTT 29 SEC (23-33) Sodium Level 138 MMOL/L (136-145) Potassium Level 4.5 MMOL/L (3.5-5.1) Chloride Level 98 MMOL/L (98-107) Carbon Dioxide Level 22 MMOL/L (21-32) Anion Gap 18 mmol/L (5-15) H Blood Urea Nitrogen 13 mg/dL (7-18) Creatinine 1.0 MG/DL (0.55-1.30) Estimate Glomerular Filtration Rate > 60 mL/min (>60) Glucose Level 94 MG/DL (74-106) Calcium Level 9.5 MG/DL (8.5-10.1) Total Bilirubin 0.4 MG/DL (0.2-1.0) Aspartate Amino Transferase (AST) 88 U/L (15-37) H Alanine Aminotransferase (ALT) 24 U/L (12-78) Alkaline Phosphatase 488 U/L (46-116) H Total Creatine Kinase 196 U/L (26-308) Troponin I 0.000 ng/mL (0.000-0.056) Pro-B-Type Natriuretic Peptide 321 pg/mL (0-125) H Total Protein 7.9 G/DL (6.4-8.2) Albumin 3.2 G/DL (3.4-5.0) L Globulin 4.7 g/dL Albumin/Globulin Ratio 0.7 (1.0-2.7) L Lipase 84 U/L (73-393) Urine Color Yellow Urine Appearance Clear Urine pH 5 (4.5-8.0) Urine Specific [place] 1.020 (1.005-1.035) Urine Protein 2+ (NEGATIVE) H Urine Glucose (UA) Negative (NEGATIVE) Urine Ketones 2+ (NEGATIVE) H Urine Blood 1+ (NEGATIVE) H Urine Nitrite Negative (NEGATIVE) Urine Bilirubin Negative (NEGATIVE) Urine Urobilinogen Normal MG/DL (0.0-1.0) Urine Leukocyte Esterase 1+ (NEGATIVE) H Urine RBC 0-2 /HPF (0 - 2) Urine WBC 2-4 /HPF (0 - 2) Urine Squamous Epithelial Cells Occasional /LPF Urine Bacteria Few /HPF (NONE) Urine Hyaline Casts 0-2 /LPF (NONE) H Urine Mucus Few /LPF (NONE/OCC) H EKG Diagnostic Results Rate: tachycardiac Rhythm: NSR ST Segments: no acute changes - Nonspecific ST-T wave changes Rhythm Strip Diag. Results EP Interpretation: yes Rhythm: no PVC's, no ectopy, other - Sinus tachycardia Chest X-Ray Diagnostic Results Chest X-Ray Diagnostic Results : Chest X-Ray Ordered: Yes # of Views/Limited/Complete: 1 View Indication: Other EP Interpretation: Yes Interpretation: no pneumothorax, other - vas cath and resolution of infiltrate L base Impression: Other Electronically Signed by: Electronically signed by Jeromy Johnson MD Last Vital Signs Date Time Temp Pulse Resp B/P (MAP) Pulse Ox O2 Delivery O2 Flow Rate FiO2 05/09/19 16:10 97.5 87 16 116/77 98 Nasal Cannula 2.0 Status: improved Disposition: ASSISTED LIVING Condition: Improved Referrals: [facility],REFERRING (PCP) Jeromy Johnson MD May 09, 2019 15:15
[2019-05-09 16:10] VITALS: BP 116/77
--- NOTE | 2019-05-09 16:10 | NUR ---
ER DISCHARGE NOTE: Patient is cleared to be discharged per ERMD, pt is aox4, on 2L oxygen via nasal cannula and instructed to use as needed. pt was given discharge instructions, pt was able to verbalize understanding, pt id band and iv site removed without complications. pt is able to ambulate with assistance and placed on gurney. pt took all belongings. [facility]
[2019-05-10] MEDS ORDERED: COLACE100 MG ORAL (08:19)
[2019-05-10] MEDS ORDERED: FLEET ENEMA133 ML RECTAL (08:19)
--- NOTE | 2019-05-13 15:46 | Cardiology Report ---
APPROVED REPORT EKG Measurement Heart [id number] N[address] and T wave abnormality Abnormal ECG
== END 2019-05-09 16:10 | disposition home or self-care (01) ==
LOC: EDBD 11:36 → EMR 14:20
DX: R06.00 Dyspnea, unspecified (principal); G89.3 Neoplasm related pain (acute) (chronic); C50.919 Malignant neoplasm of unspecified site of unspecified female breast; R00.0 Tachycardia, unspecified
CPT/HCPCS: 36415; 71045; 80053; 81003; 82550; 83690; 83880; 84484; 85025; 85610; 85730; 93005; Z7502; 99284

== ENCOUNTER 2019-05-10 06:59 | Emergency (ER) | payer OTHER ==
[~2019-05-10] VITALS: Ht 165.1 cm; Wt 63.5 kg
[2019-05-10 07:05] VITALS: BP 136/91
--- NOTE | 2019-05-10 07:05 | NUR ---
ED Nurse Note: Patient brought in by RA from home c/o non radiating chestpain x 3 hrs ago. Has history of stage 4 breast cancer. HR 113. Alert and oriented, verbally responsive. No SOB. Breathing even and unlabored. Not in any distress. Placed pt on long lines operator.
--- NOTE | 2019-05-10 07:13 | NUR ---
HAND-OFF: Report given to Patricia CACERES/ Avis CACERES. Endorsed plan of care.
--- NOTE | 2019-05-10 07:14 | Emergency Room Report ---
History of Present Illness General Chief Complaint: Chest Pain Source: Patient Present Illness HPI Patient presents with complaints of diffuse body pain Reports that she had taken 1 of her oxycodones yesterday however had breakthrough pain today Denies any headache She had pain to the upper clavicular chest area diffusely her arms and legs Patient reports multiple significant history of carcinoma with chemotherapy Denies any nausea vomiting denies any focal weakness Allergies: Coded Allergies: No Known Allergies (Unverified , 12/02/15) Patient History Past Medical History: see triage record Reviewed Nursing Documentation: PMH: Agreed; PSxH: Agreed Nursing Documentation-PMH Past Medical History: No History, Except For Hx Asthma: Yes Hx Cancer: Yes Hx Gastrointestinal Problems: No Hx Neurological Problems: No Review of Systems All Other Systems: negative except mentioned in HPI Physical Exam Vital Signs Date Time Temp Pulse Resp B/P (MAP) Pulse Ox O2 Delivery O2 Flow Rate FiO2 05/10/19 07:01 98.1 113 20 164/102 (122) 98 Room Air Sp02 EP Interpretation: reviewed, normal General Appearance: mild distress - Patient is in acute pain Head: normocephalic, atraumatic Eyes: bilateral eye PERRL, bilateral eye EOMI ENT: other - Patient has significant kyphosis and her neck is tilted downward Neck: no meningismus Respiratory: lungs clear, no respiratory distress, no retraction Cardiovascular #1: regular rate, rhythm Gastrointestinal: non tender Musculoskeletal: other - Equal all around presser bilaterally Neurologic: alert, oriented x3 Psychiatric: normal inspection Skin: no rash Lymphatic: no adenopathy Medical Decision Making Diagnostic Impression: Primary Impression: Chest pain ER Course Patient is a fairly complex patient with multiple differential to consideration including but not limited to cardiac cardiopulmonary and vascular emergencies Patient's EKG is normal Patient also denies any other chest pain at this time and points mainly to the midsternal area And reports diffuse bone pain Patient appears to have a breakthrough pain of her metastatic disease She was provided with pain control Feels improved at this time requires improved outpatient follow-up EKG Diagnostic Results Rate: normal Rhythm: NSR ST Segments: no acute changes Rhythm Strip Diag. Results EP Interpretation: yes Rate: 88 Rhythm: NSR, no PVC's, no ectopy Last Vital Signs Date Time Temp Pulse Resp B/P (MAP) Pulse Ox O2 Delivery O2 Flow Rate FiO2 05/10/19 07:05 98.1 113 20 136/91 98 Room Air Status: improved Disposition: HOME, SELF-CARE Condition: Improved Scripts Na Phos,M-B/Na Phos,Di-Ba* (FLEET ENEMA*) 133 Ml Enema 133 ML RECTAL DAILY, #2 ML 0 Refills Prov: Chilango Conrad DO 05/10/19 Docusate Sodium* (COLACE*) 100 Mg Capsule 100 MG ORAL THREE TIMES A DAY, #21 CAP Prov: Chilango Conrad DO 05/10/19 Additional Instructions: Patient is provided with the discharge instructions notified to follow up with primary doctor in the next 2-3 days otherwise return to the er with any worsening symptoms. Please note that this report is being documented using [employer] technology. This can lead to erroneous entry secondary to incorrect interpretation by the dictating instrument. Chilango Conrad DO May 10, 2019 07:14
[2019-05-10] MEDS ORDERED: HYDROmorphone 1mg/ml Carpuject IM ONE ×2 (07:15→10:30)
--- NOTE | 2019-05-10 07:15 | NUR ---
ED Nurse Note: Received pt on bed, awake and alert, on stable condition. VSS, no signs of any distress. ERMD on beside. Will continue to monitor.
[2019-05-10 07:20] VITALS: BP 136/91
[2019-05-10] MEDS ORDERED: Docusate 100mg cap ORAL ONE (08:15)
[2019-05-10] MEDS ORDERED: FLEET ENEMA133 ML RECTAL (08:19)
[2019-05-10] MEDS ORDERED: COLACE100 MG ORAL (08:19)
--- NOTE | 2019-05-10 10:16 | NUR ---
ED Nurse Note:pt given updsates as to plan for ambulance bls transport home. pt has own soft collar with her. declines to put on at this time.
[2019-05-10 10:50] VITALS: BP 160/82
== END 2019-05-10 10:53 | disposition home or self-care (01) ==
LOC: EDBD 06:59 → EMR 07:45
DX: R07.9 Chest pain, unspecified (principal); Z85.9 Personal history of malignant neoplasm, unspecified
CPT/HCPCS: 96372; J1170; Z7502; 99283